=== PATIENT | male | born 1990 | race Caucasian/White ===

== ENCOUNTER 2020-05-29 10:40 | Inpatient (IN) | payer OTHER ==
--- NOTE | 2020-05-29 12:59 | BHS.RME ---
Substance Use & Tx History - Substance Use History Heroin Substance amount: 15 bags of heroin Frequency of use: Daily Substance route: Injection (ex: intravenous or skin popping) Date of Last Use: 05/29/20 Alcohol Substance amount: 1 pint of vodka/8 of 12 0zs ofbeer Frequency of use: Daily Substance route: Oral Date of Last Use: 05/28/20 Cocaine- Powder Substance amount: 50$ Frequency of use: Daily Substance route: Injection (ex: intravenous or skin popping) Date of Last Use: 05/28/20 Xanax Substance amount: 4 to 6 mgs Frequency of use: More than 3 times per week Substance route: Oral Date of Last Use: 05/27/20 - Last Treatment Date of last treatment: 06/[facility] Where was last treatment: Detox Physical/Psych/Mental Status - Behavior General Behavior: Increased activity (restlessness, agitation) Other Behaviors: Mannerisms - Cooperativeness Cooperativeness: Cooperative - Thinking Thought Processes: Logical Thought content: Future oriented - Physical Health Problems Is patient presently having any pain?: No Does patient presently have any injuries (include location): No Does patient currently have a fever: No COWS - Scale Resting Pulse: 0= [place] 80 or Below Sweatin= Chills/Flushing Restless Observation: 3= Extraneous Movement Pupil Size: 1= Pupils >than Normal Bone or Joint Aches: 2= Severe Diffuse Aches Runny Nose/ Eye Tearin= Runny Nose/Eyes GI Upset > 30mins: 2= Nausea/Diarrhea Tremor Observation: 2= Slight Tremor Visible Yawning Observation: 2= >3x During Session Anxiety or Irritability: 2=Irritable/Anxious Goose Flesh Skin: 0=Smooth Skin COWS Score: 17 CIWA Nausea/Vomitin Muscle Tremors: 3 Anxiety: 3 Agitation: 3 Paroxysmal Sweats: 1-Minimal Palms Moist Orientation: 0-Oriented Tacttile Disturbances: 1-Very Mild Itch/Numbness Auditory Disturbances: 0-None Visual Disturbances: 0-None Headache: 2-Mild CIWA-Ar Total Score: 15
--- NOTE | 2020-05-29 13:19 | HP ---
COWS - Scale Resting Pulse: 0= [place] 80 or Below Sweatin= Chills/Flushing Restless Observation: 3= Extraneous Movement Pupil Size: 1= Pupils >than Normal Bone or Joint Aches: 2= Severe Diffuse Aches Runny Nose/ Eye Tearin= Runny Nose/Eyes GI Upset > 30mins: 2= Nausea/Diarrhea Tremor Observation: 2= Slight Tremor Visible Yawning Observation: 2= >3x During Session Anxiety or Irritability: 2=Irritable/Anxious Goose Flesh Skin: 0=Smooth Skin COWS Score: 17 CIWA Score Nausea/Vomitin Muscle Tremors: 3 Anxiety: 3 Agitation: 3 Paroxysmal Sweats: 1-Minimal Palms Moist Orientation: 0-Oriented Tacttile Disturbances: 1-Very Mild Itch/Numbness Auditory Disturbances: 0-None Visual Disturbances: 0-None Headache: 2-Mild CIWA-Ar Total Score: 15 - Admission Criteria [facility] Guidelines: Admission for Medically Managed Detox: Requires at least one of the followin. CIWA greater than 12 2. Seizures within the past 24 hours 3. Delirium tremens within the past 24 hours 4. Hallucinations within the past 24 hours 5. Acute intervention needed for co occurring medical disorder 6. Acute intervention needed for co occurring psychiatric disorder 7. Severe withdrawal that cannot be handled at a lower level of care (continued vomiting, continued diarrhea, abnormal vital signs) requiring intravenous medication and/or fluids 8. Admitting History and Physical - Admission Chief Complaint: i need help to stop using drugs and alcohol History of Present Illness: this 30 years old male iwth heroin,alcohol dependence seeking detox History Source: Patient Limitations to Obtaining History: No Limitations - Smoking History Smoking history: Current every day smoker Have you smoked in the past 12 months: Yes - Alcohol/Substance Use Hx Alcohol Use: Yes History of Substance Use: reports: Cocaine, Heroin, Tranquilizers Date of Last Use: 05/29/20 - Social History Usual Living Arrangement: Yes: Other (friend) Do you think of yourself as: Straight/Heterosexual ADL: Support Services Occupation: unemployed History of Recent Travel: No Other Social History: unemployed,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,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 Admission ROS [facility] - HPI Chief Complaint: i need help to stop using drugs and alcohol Allergies/Adverse Reactions: Allergies Allergy/AdvReac Type Severity Reaction Status Date / Time Fish Containing Products Allergy Severe Swelling Verified 05/29/20 13:31 History of Present Illness: this 30 years old male with heroin,cocaine,xanax dependence and alcohol deprendence seeking detox, first time to this fasility Exam Limitations: No Limitations - Ebola screening Have you traveled outside of the country in the last 21 days: No Have you had contact with anyone from an Ebola affected area: No Have you been sick,other than usual withdrawal symptoms: No Do you have a fever: No - Review of Systems Constitutional: Chills, Loss of Appetite, Malaise, Night Sweats, Changes in sleep, Weakness, Unintentional Wgt. Loss EENT: reports: Nose Congestion Respiratory: reports: No Symptoms reported Cardiac: reports: No Symptoms Reported GI: reports: Nausea, Vomiting, Abdominal cramping : reports: No Symptoms Reported Musculoskeletal: reports: Back Pain, Muscle Pain Integumentary: reports: Dryness Neuro: reports: Tremors Endocrine: reports: No Symptoms Reported Hematology: reports: No Symptoms Reported Psychiatric: reports: No Sypmtoms Reported, Mood/Affect Appropiate, Orientated x3, Anxious, Depressed, other (insomnia) Other Systems: Reviewed and Negative Patient History - Patient Medical History Hx Anemia: No Hx Asthma: No Hx Chronic Obstructive Pulmonary Disease (COPD): No Hx Cancer: No Hx Cardiac Disorders: No Hx Congestive Heart Failure: No Hx Hypertension: No Hx Hypercholesterolemia: No Hx Pacemaker: No HX Cerebrovascular Accident: No Hx Seizures: No Hx Dementia: No Hx Diabetes: No Hx Gastrointestinal Disorders: No Hx Liver Disease: No Hx Genitourinary Disorders: No Hx Sexually Transmitted Disorders: No Hx Renal Disease (ESRD): No Hx Thyroid Disease: No Hx Human Immunodeficiency Virus (HIV): No (last 10/30 negative) Hx Hepatitis C: No Hx Depression: Yes (anxiety) Hx Suicide Attempt: No Hx Bipolar Disorder: No Hx Schizophrenia: No Other Medical History: no suicidal,no homicidal - Patient Surgical History Past Surgical History: No - PPD History Previous Implant?: Yes Documented Results: Negative w/o proof Implanted On Prior [facility] Admission?: No PPD to be Administered?: Yes - Smoking Cessation Smoking history: Current every day smoker Have you smoked in the past 12 months: Yes Aproximately how many cigarettes per day: 5 Hx Chewing Tobacco Use: No Initiated information on smoking cessation: No 'Breaking Loose' booklet given: 05/29/20 - Substance & Tx. History Hx Alcohol Use: Yes Hx Substance Use: Yes Substance Use Type: Cocaine, Heroin, Prescribed Hx Substance Use Treatment: Yes ([facility]) - Substances abused Heroin Substance route: Injection Frequency: Daily Amount used: 15 bags Age of first use: 17 Date of last use: 05/29/20 Alcohol Substance route: Oral Frequency: Daily Amount used: 1 pint of vodka/8 of 12 ozs of beer Age of first use: 12 Date of last use: 05/28/20 Cocaine Substance route: Injection Frequency: Daily Amount used: 50$ Age of first use: 16 Date of last use: 05/28/20 Alprazolam (Xanax) Frequency: 3-6 times per week Amount used: 4 to 6 mgs Age of first use: 16 Date of last use: 05/28/20 Admission Physical Exam [facility] - Vital Signs Vital Signs: t98,p60,bp 113/67,r18 - Physical General Appearance: Yes: Moderate Distress, Tremorous, Irritable, Sweating, Anxious HEENTM: Yes: Normal ENT Inspection, MEGAN, Pharynx Normal Respiratory: Yes: Within Normal Limits, Lungs Clear, Normal Breath Sounds Neck: Yes: Within Normal Limits, Supple, Trachea in good position Breast: Yes: Within Normal Limits Cardiology: Yes: Within Normal Limits, Regular Rhythm, Regular Rate, S1, S2 Abdominal: Yes: Normal Bowel Sounds, Non Tender, Flat, Soft Genitourinary: Yes: Within Normal Limits Back: Yes: Muscle Spasm Musculoskeletal: Yes: Back pain, Muscle Pain Extremities: Yes: Tremors Neurological: Yes: electrical troubleshooter II-XII NML intact, Fully Oriented, Alert, Motor Strength 5/5 Integumentary: Yes: Dry, Track Mcmullen Lymphatic: Yes: Within Normal Limits - Diagnostic (1) Opioid dependence with withdrawal Current Visit: Yes Status: Acute (2) Alcohol dependence with uncomplicated withdrawal Current Visit: Yes Status: Acute (3) Uncomplicated sedative, hypnotic or anxiolytic withdrawal Current Visit: Yes Status: Acute (4) Cocaine dependence Current Visit: Yes Status: Chronic (5) IVDU (intravenous drug user) Current Visit: Yes Status: Acute (6) Insomnia secondary to depression with anxiety Current Visit: Yes Status: Acute (7) Nicotine dependence Current Visit: Yes Status: Chronic (8) Weight loss Current Visit: Yes Status: Acute Cleared for Admission [facility] - Detox or Rehab [facility] Level of Care: Medically Managed Detox Regimen/Protocol: Methadone/Valium Inpatient Rehab Admission - Rehab Decision to Admit Inpatient rehab admission?: No
[2020-05-29] MEDS ORDERED: cloNIDine HCL 0.1 MG TABLET PO PRN (13:33)
[2020-05-29] MEDS ORDERED: MAGNESIUM HYDROX 2400MG/30ML ORAL SUSPENSION 30 ML CUP PO PRN (13:33)
[2020-05-29] MEDS ORDERED: MENTHOL/PHENOL 1 EACH UD MM PRN (13:33)
[2020-05-29] MEDS ORDERED: MAG HYDROX/AL HYDROX/SIMETH 30 ML UNIT-DOSE CUP PO PRN (13:33)
[2020-05-29] MEDS ORDERED: MAGNESIUM CITRATE 300 ML BOTTLE PO PRN (13:33)
[2020-05-29] MEDS ORDERED: METHOCARBAMOL 500 MG TABLET PO PRN (13:33)
[2020-05-29] MEDS ORDERED: ACETAMINOPHEN 325 MG TABLET (FP) PO PRN ×2 (13:33)
[2020-05-29] MEDS ORDERED: METHADONE HCL 10 MG TABLET (FOR DETOX USE ONLY) PO ONE (13:33)
[2020-05-29] MEDS ORDERED: ONDANSETRON *ODT* 4 MG TABLET SL ONE (13:33)
[2020-05-29] MEDS ORDERED: BISMUTH SUBSALICYLATE 524 MG/30 ML UD PO PRN (13:33)
[2020-05-29] MEDS ORDERED: IBUPROFEN 400 MG TABLET (FP) PO PRN (13:33)
[2020-05-29] MEDS ORDERED: NICOTINE POLACRILEX 2 MG GUM BUC PRN (13:33)
[2020-05-29 13:45] VITALS: BMI 19.9
[2020-05-29] MEDS: hydrOXYzine PAMOATE 25 MG CAPSULE (FP) PO SCH ×3 (15:10→21:38)
[2020-05-29] MEDS: diazePAM 5 MG TABLET PO PRN ×2 (15:19→19:52)
--- NOTE | 2020-05-29 17:25 | CONSULT ---
[facility] Psychiatric Consult - Data Date of interview: 05/29/20 Admission source: [facility] Identifying data: First visit to [facility] and admission to [address] [place] [address] (converted into a detoxification unit) for this 30 y/o male self-referred for detoxification treatment. JOSHUA issues : alcohol, cocaine, heroin, benzodiazepine (xanax), nicotine. 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 Patient is a good historian. Substance Abuse History: Discused with the patient. JOSHUA profile as follows : Smoking history: Current every day smoker. Have you smoked in the past 12 months: Yes. Aproximately how many cigarettes per day: 5. Hx Chewing Tobacco Use: No. Initiated information on smoking cessation: No. 'Breaking Loose' booklet given: 05/29/20. - Substance & Tx. History. Hx Alcohol Use: Yes. Hx Substance Use: Yes. Substance Use Type: Cocaine, Heroin, Prescribed. Hx Substance Use Treatment: Yes (06/[facility]). - Substances abused. Heroin. Substance route: Injection. Frequency: Daily. Amount used: 15 bags. Age of first use: 17. Date of last use: 05/29/20. Alcohol. Substance route: Oral. Frequency: Daily. Amount used: 1 pint of vodka/8 of 12 ozs of beer. Age of first use: 12. Date of last use: 05/28/20. History of multiple JOSHUA treatment failures. Cocaine. Substance route: Injection. Frequency: Daily. Amount used: 50$. Age of first use: 16. Date of last use: 05/28/20. Alprazolam (Xanax). Frequency: 3-6 times per week. Amount used: 4 to 6 mgs. Age of first use: 16. Date of last use: 05/28/20 Medical History: Medical history is remarkable for a recent of pneumonia (warranted two months of hospitalization). Psychiatric History: Patient endorses a long standing history of psychiatric illness. Onset at age 13 (runaway behavior, involvement with drugs, behavioral disurbances). Mr Huerta indicates a background of multiple psychiatric hospitalizations ([facility] + [facility] + [facility] + unnamed institution located in [facility]). Diagnosed with MDD, OCD and Anxiety Disorder. For past four years, until recently (2018), the patient has received his OPD psychiatric services at [facility] in [facility]. He has been treated with various molecules which include gabapentin, venlafaxine, mirtazapine, aripriprazole and other unnamed formulations. Patient reports that since the sabianism of the COVID-19 pandemic, he has not been able to connect with a psychiatric care provider (consequently, he could not get his medications). He aknowledges history of two suicide attempts (overdoses with drugs : first one at age 20 + second attempt occurred in June 2019). Physical/Sexual Abuse/Trauma History: Patient denies history of abuse. Additional Comment: No toxicology for review. Mental Status Exam - Mental Status Exam Alert and Oriented to: Time, Place, Person Cognitive Function: Good Patient Appearance: Well Groomed (tattoos : neck, upper extremities; ring inserted in both earlobes ) Mood: Anxious, Hopeful Affect: Appropriate, Normal Range Patient Behavior: Fatigued, Appropriate, Cooperative Speech Pattern: Clear, Appropriate Voice Loudness: Normal Thought Process: Intact, Goal Oriented Thought Disorder: Not Present Hallucinations: Denies Suicidal Ideation: Denies Homicidal Ideation: Denies Insight/Judgement: Poor Sleep: Poorly, Difficulty falling asleep Appetite: Good Gait/Station: Normal Psychiatric Findings - Problem List ([place] 1, 2,3) (1) Alcohol dependence with uncomplicated withdrawal Current Visit: Yes Status: Acute (2) Uncomplicated sedative, hypnotic or anxiolytic withdrawal Current Visit: Yes Status: Acute (3) Opioid dependence with withdrawal Current Visit: Yes Status: Acute (4) Cocaine dependence Current Visit: Yes Status: Chronic (5) Nicotine dependence Current Visit: Yes Status: Chronic (6) Substance induced mood disorder Current Visit: Yes Status: Chronic (7) History of depression Current Visit: Yes Status: Chronic Comment: As per self-report. Patient requests to get back on venalafaxine. (8) Insomnia Current Visit: Yes Status: Chronic (9) Non-compliance Current Visit: Yes Status: Chronic - Initial Treatment Plan Initial Treatment Plan: Psychoeducation. Sleep hygiene. Support. Motivational counseling. Detoxification in progress. Product Manager Medical Device made unsuccessful attempt to verify patient's medications at [facility] (called [phone]) : answering machine (pharmacy closed). No justification, at this time, for restarting venlafaxine. Remeron is restarted at the dose of 15 mg po hs. Gabapentin held for now (caution for risk of oversedation due to polypharmacy). Side effects/benefits of these three medications are revisited with the patient. Mr Huerta is in agreement with this initial plan of care. Consent (verbal) granted. Observation.
[2020-05-29] MEDS: MIRTAZAPINE 15 MG TABLET (FP) PO SCH (21:38)
[2020-05-29] MEDS: MELATONIN 5 MG TABLETS PO SCH (21:38)
[2020-05-29] MEDS: THIAMINE HCL 100 MG TABLET (FP) PO SCH (21:38)
[2020-05-29] MEDS: diazePAM 5 MG TABLET PO SCH (21:38)
[2020-05-30] MEDS: diazePAM 5 MG TABLET PO SCH ×3 (06:30→21:36)
[2020-05-30] MEDS: hydrOXYzine PAMOATE 25 MG CAPSULE (FP) PO SCH ×4 (06:30→22:06)
[2020-05-30] MEDS ORDERED: METHADONE HCL 10 MG TABLET (FOR DETOX USE ONLY) ONE (08:56)
[2020-05-30] MEDS ORDERED: METHADONE HCL 5 MG TABLET (FOR DETOX USE ONLY) ONE (08:56)
[2020-05-30] MEDS ORDERED: METHADONE (DETOX) 20 MG, METHADONE (DETOX) 5 MG PO ONE (10:00)
[2020-05-30] MEDS: PRENATAL VITAMINS W/ FOLIC ACID TABLET (FP) PO SCH (10:27)
[2020-05-30] MEDS: NICOTINE 7 MG/24 HOURS TOPICAL PATCH TD SCH (10:28)
[2020-05-30] MEDS: diazePAM 5 MG TABLET PO PRN ×2 (10:30→17:28)
[2020-05-30 12:04] LABS: HEMATOCRIT 30.6 % (35.4-49); HEMOGLOBIN 10.2 GM/dL (11.7-16.9); MCH 28.7 pg (25.7-33.7); MCHC 33.5 g/dl (32.0-35.9); MEAN CELL VOLUME 85.6 fl (80-96); MEAN PLT VOLUME 7.9 fl (7.5-11.1); PLATELET COUNT 138 K/MM3 (134-434); RBC 3.57 M/mm3 (4.00-5.60); RDW 14.6 % (11.9-15.9); WHITE BLOOD COUNT 3.9 K/mm3 (4.0-10.0)
[2020-05-30 12:18] LABS: ALBUMIN 2.8 g/dl (3.4-5.0); BILIRUBIN,TOTAL 0.4 mg/dL (0.2-1); BLOOD UREA NITROGEN 11.4 mg/dL (7-18); CALCIUM 8.7 mg/dL (8.5-10.1); POTASSIUM 3.4 mmol/L (3.5-5.1); TOT PROT 6.3 g/dl (6.4-8.2)
--- NOTE | 2020-05-30 13:37 | PN ---
S CIWA - CIWA Score Nausea/Vomitin Muscle Tremors: 3 Anxiety: 3 Agitation: 2 Paroxysmal Sweats: 1-Minimal Palms Moist Orientation: 0-Oriented Tacttile Disturbances: 0-None Auditory Disturbances: 0-None Visual Disturbances: 0-None Headache: 1-Very Mild CIWA-Ar Total Score: 12 S COWS - Scale Resting Pulse: 0= [place] 80 or Below Sweatin= Chills/Flushing Restless Observation: 0= Sits Still Pupil Size: 1= Pupils >than Normal Bone or Joint Aches: 1= Mild Discomfort Runny Nose/ Eye Tearin= None GI Upset > 30mins: 2= Nausea/Diarrhea Tremor Observation of Outstretched Hands: 2= Slight Tremor Visible Yawning Observation: 0= None Anxiety or Irritability: 2=Irritable/Anxious Goose Flesh Skin: 3=Piloerection COWS Score: 12 S Progress Note (SOAP) Subjective: 30 YEARS OLD MALE ADMITTED ON 05/29/20 FOR ALCOHOL BENZO OPIATE WITHDRAWAL SX MANAGEMENT TREATING WITH VALIUM AND METHADONE DETOX REGIMENT REPORT ABDOMINAL CRAMPING BENTYLE 20 MG PO X 1 DIARRHEA X 1 AFTER BREAKFAST IMODIUM 4 MG PO X 1 Objective: 05/30/20 13:42 Vital Signs - 24 hr 05/29/20 05/29/20 05/29/20 14:40 17:10 20:30 Temperature 98.4 F 97.9 F 98.1 F Pulse Rate 51 L 59 L 55 L Respiratory 18 18 18 Rate Blood Pressure 116/69 125/76 127/76 O2 Sat by Pulse 98 98 98 Oximetry (%) 05/30/20 05/30/20 05/30/20 06:04 08:39 12:34 Temperature 97.7 F 97.7 F 98.0 F Pulse Rate 59 L 57 L 65 Respiratory 18 18 17 Rate Blood Pressure 119/71 122/69 120/73 O2 Sat by Pulse 98 98 Oximetry (%) Laboratory Tests 05/30/20 05/30/20 05/30/20 07:25 07:25 07:25 WBC 3.9 L RBC 3.57 L Hgb 10.2 L Hct 30.6 L MCV 85.6 MCH 28.7 MCHC 33.5 RDW 14.6 Plt Count 138 MPV 7.9 Sodium 142 Potassium 3.4 L Chloride 107 Carbon Dioxide 29 Anion Gap 6 L BUN 11.4 Creatinine 1.0 Est GFR (CKD-EPI)AfAm 116.54 Est GFR (CKD-EPI)NonAf 100.55 Random Glucose 89 Calcium 8.7 Total Bilirubin 0.4 AST 10 L ALT 11 L Alkaline Phosphatase 63 Total Protein 6.3 L Albumin 2.8 L Syphilis Serology Non-reactive LAB NOTED POTASSIUM SUPPLEMENT 20MEQ X 2 PO 05/30/20 13:44 Assessment: 05/30/20 13:44 ALCOHOL BENZO OPIATE WITHDRAWAL 05/30/20 13:46 DIARRHEA ABDOMINAL CRAMP Plan: VALIUM AND METHADONE REGIMENTS IMODIUM 4 MG PO X 1 BENTYLE 20 MG PO X 1
[2020-05-30] MEDS ORDERED: LOPERAMIDE HCL 2 MG CAPSULE PO ONE (13:38)
[2020-05-30] MEDS ORDERED: DICYCLOMINE HCL 10 MG CAPSULE PO ONE (14:30)
[2020-05-30] MEDS: POTASSIUM CHLORIDE ORAL LIQUID 20 MEQ/15 ML PO SCH ×2 (15:22→17:30)
[2020-05-30] MEDS: THIAMINE HCL 100 MG TABLET (FP) PO SCH (21:36)
[2020-05-30] MEDS: MELATONIN 5 MG TABLETS PO SCH (21:36)
[2020-05-30] MEDS: MIRTAZAPINE 15 MG TABLET (FP) PO SCH (21:37)
[2020-05-31] MEDS: hydrOXYzine PAMOATE 25 MG CAPSULE (FP) PO SCH ×4 (06:32→22:14)
[2020-05-31] MEDS: diazePAM 5 MG TABLET PO SCH ×2 (06:32→18:06)
[2020-05-31] MEDS ORDERED: METHADONE HCL 10 MG TABLET (FOR DETOX USE ONLY) PO ONE (10:00)
[2020-05-31] MEDS: NICOTINE 7 MG/24 HOURS TOPICAL PATCH TD SCH (10:50)
[2020-05-31] MEDS: PRENATAL VITAMINS W/ FOLIC ACID TABLET (FP) PO SCH (10:50)
[2020-05-31] MEDS: diazePAM 5 MG TABLET PO PRN ×2 (10:52→22:14)
--- NOTE | 2020-05-31 12:29 | EKG ---
Test Reason : Blood Pressure : / mmHG Vent. Rate : 055 BPM Atrial Rate : 055 BPM P-R Int : 202 ms QRS Dur : 104 ms QT Int : 436 ms P-R-T Axes : 059 055 025 degrees QTc Int : 417 ms SINUS BRADYCARDIA OTHERWISE NORMAL ECG NO PREVIOUS ECGS AVAILABLE Confirmed by Lala Huitron ([id number]) on 05/31/2020 12:28:34 PM Referred By: Confirmed By:Lala Huitron
--- NOTE | 2020-05-31 14:34 | PN ---
[facility] CIWA - CIWA Score Nausea/Vomitin-No Nausea/No Vomiting Muscle Tremors: 3 Anxiety: 4-Mod. Anxious/Guarded Agitation: 3 Paroxysmal Sweats: 2 Orientation: 0-Oriented Tacttile Disturbances: 0-None Auditory Disturbances: 0-None Visual Disturbances: 0-None Headache: 0-None Present CIWA-Ar Total Score: 12 BHS COWS - Scale Resting Pulse: 0= [place] 80 or Below Sweatin= Chills/Flushing Restless Observation: 3= Extraneous Movement Pupil Size: 0= Normal to Room Light Bone or Joint Aches: 2= Severe Diffuse Aches Runny Nose/ Eye Tearin= None GI Upset > 30mins: 1= Stomach Cramp Tremor Observation of Outstretched Hands: 1= Tremor [place], Not Seen Yawning Observation: 0= None Anxiety or Irritability: 2=Irritable/Anxious Goose Flesh Skin: 0=Smooth Skin COWS Score: 10 BHS Progress Note (SOAP) Subjective: Pt is a 30 y/o male admitted to detox for heroin, alcohol and sedative withdrawal sx. c/o sweats hot/cold sweats stomach cramps anxiety Objective: 05/31/20 15:16 Vital Signs - 24 hr 05/30/20 05/30/20 05/31/20 16:32 20:26 06:06 Temperature 97.8 F 97.3 F L 97.8 F Pulse Rate 76 66 60 Respiratory 18 17 18 Rate Blood Pressure 117/55 L 116/66 111/70 O2 Sat by Pulse 98 99 Oximetry (%) 05/31/20 05/31/20 09:41 13:09 Temperature 97.6 F 98.2 F Pulse Rate 50 L 62 Respiratory 16 18 Rate Blood Pressure 136/73 131/71 O2 Sat by Pulse 97 98 Oximetry (%) Laboratory Tests 05/29/20 05/30/20 05/30/20 14:12 07:25 07:25 WBC RBC Hgb Hct MCV MCH MCHC RDW Plt Count MPV Sodium Potassium Chloride Carbon Dioxide Anion Gap BUN Creatinine Est GFR (CKD-EPI)AfAm Est GFR (CKD-EPI)NonAf Random Glucose Calcium Total Bilirubin AST ALT Alkaline Phosphatase Total Protein Albumin Syphilis Serology Non-reactive COVID-19 ([facility]) Not detected HIV Ag/Ab Combo Qual Negative 05/30/20 05/30/20 07:25 07:25 WBC 3.9 L RBC 3.57 L Hgb 10.2 L Hct 30.6 L MCV 85.6 MCH 28.7 MCHC 33.5 RDW 14.6 Plt Count 138 MPV 7.9 Sodium 142 Potassium 3.4 L Chloride 107 Carbon Dioxide 29 Anion Gap 6 L BUN 11.4 Creatinine 1.0 Est GFR (CKD-EPI)AfAm 116.54 Est GFR (CKD-EPI)NonAf 100.55 Random Glucose 89 Calcium 8.7 Total Bilirubin 0.4 AST 10 L ALT 11 L Alkaline Phosphatase 63 Total Protein 6.3 L Albumin 2.8 L Syphilis Serology COVID-19 ([facility]) HIV Ag/Ab Combo Qual covid-19 not detected labs noted K+ 3.4 Hgb 10.2 Alert o x 3 nad oob ambulating with steady gait Assessment: 05/31/20 15:17 withdrawal sx Anemia borderline hypokalemia Plan: cont detox increase po fluids maintain safety feosol 325 mg po BID kdur 20 mg po daily, 1st dose now repeat CMP/CBC on Sun06/02/20
[2020-05-31] MEDS: POTASSIUM CHLORIDE TABS 20 MEQ TABLET.ER (FP) PO SCH (15:38)
[2020-05-31] MEDS: FERROUS SO4 325 MG TABLET (FP) PO SCH (18:05)
[2020-05-31] MEDS: MELATONIN 5 MG TABLETS PO SCH (22:14)
[2020-05-31] MEDS: MIRTAZAPINE 15 MG TABLET (FP) PO SCH (22:14)
[2020-05-31] MEDS: THIAMINE HCL 100 MG TABLET (FP) PO SCH (22:15)
[2020-06-01] MEDS ORDERED: diazePAM 5 MG TABLET PO ONE (06:00)
[2020-06-01] MEDS: hydrOXYzine PAMOATE 25 MG CAPSULE (FP) PO SCH ×2 (06:12→10:08)
[2020-06-01] MEDS ORDERED: METHADONE HCL 10 MG TABLET (FOR DETOX USE ONLY) ONE (08:44)
[2020-06-01] MEDS ORDERED: METHADONE HCL 5 MG TABLET (FOR DETOX USE ONLY) ONE (08:44)
--- NOTE | 2020-06-01 09:31 | PN ---
[facility] CIWA - CIWA Score Nausea/Vomitin-No Nausea/No Vomiting Muscle Tremors: 2 Anxiety: 4-Mod. Anxious/Guarded Agitation: 0-Normal Activity Paroxysmal Sweats: 2 Orientation: 0-Oriented Tacttile Disturbances: 0-None Auditory Disturbances: 0-None Visual Disturbances: 0-None Headache: 0-None Present CIWA-Ar Total Score: 8 BHS COWS - Scale Resting Pulse: 0= [place] 80 or Below Sweatin= Chills/Flushing Restless Observation: 0= Sits Still Pupil Size: 0= Normal to Room Light Bone or Joint Aches: 2= Severe Diffuse Aches Runny Nose/ Eye Tearin= None GI Upset > 30mins: 1= Stomach Cramp Tremor Observation of Outstretched Hands: 1= Tremor [place], Not Seen Yawning Observation: 0= None Anxiety or Irritability: 2=Irritable/Anxious Goose Flesh Skin: 0=Smooth Skin COWS Score: 7 S Progress Note (SOAP) Subjective: c/o hot/cold chills sweats stomach cramps ` Objective: 06/01/20 09:32 Vital Signs - 24 hr 05/31/20 05/31/20 05/31/20 09:41 13:09 21:29 Temperature 97.6 F 98.2 F 98.4 F Pulse Rate 50 L 62 56 L Respiratory 16 18 16 Rate Blood Pressure 136/73 131/71 122/74 O2 Sat by Pulse 97 98 96 Oximetry (%) 06/01/20 06:07 Temperature 97.3 F L Pulse Rate 58 L Respiratory 18 Rate Blood Pressure 104/58 L O2 Sat by Pulse 98 Oximetry (%) Laboratory Results - last 24 hr 05/29/20 14:12 COVID-19 ([facility]) Not detected Laboratory Tests 05/29/20 05/30/20 05/30/20 14:12 07:25 07:25 WBC RBC Hgb Hct MCV MCH MCHC RDW Plt Count MPV Sodium Potassium Chloride Carbon Dioxide Anion Gap BUN Creatinine Est GFR (CKD-EPI)AfAm Est GFR (CKD-EPI)NonAf Random Glucose Calcium Total Bilirubin AST ALT Alkaline Phosphatase Total Protein Albumin Syphilis Serology Non-reactive COVID-19 ([facility]) Not detected HIV Ag/Ab Combo Qual Negative 05/30/20 05/30/20 07:25 07:25 WBC 3.9 L RBC 3.57 L Hgb 10.2 L Hct 30.6 L MCV 85.6 MCH 28.7 MCHC 33.5 RDW 14.6 Plt Count 138 MPV 7.9 Sodium 142 Potassium 3.4 L Chloride 107 Carbon Dioxide 29 Anion Gap 6 L BUN 11.4 Creatinine 1.0 Est GFR (CKD-EPI)AfAm 116.54 Est GFR (CKD-EPI)NonAf 100.55 Random Glucose 89 Calcium 8.7 Total Bilirubin 0.4 AST 10 L ALT 11 L Alkaline Phosphatase 63 Total Protein 6.3 L Albumin 2.8 L Syphilis Serology COVID-19 ([facility]) HIV Ag/Ab Combo Qual Assessment: 06/01/20 11:52 withdrawal sx Plan: cont detox increase po fluids maintain safety Robaxin prn for muscle spasm
[2020-06-01] MEDS ORDERED: METHADONE (DETOX) 10 MG, METHADONE (DETOX) 5 MG PO ONE (10:00)
[2020-06-01] MEDS: POTASSIUM CHLORIDE TABS 20 MEQ TABLET.ER (FP) PO SCH (10:08)
[2020-06-01] MEDS: NICOTINE 7 MG/24 HOURS TOPICAL PATCH TD SCH (10:08)
[2020-06-01] MEDS: FERROUS SO4 325 MG TABLET (FP) PO SCH (10:08)
[2020-06-01] MEDS: PRENATAL VITAMINS W/ FOLIC ACID TABLET (FP) PO SCH (10:08)
[2020-06-01] MEDS: diazePAM 5 MG TABLET PO PRN (10:10)
--- NOTE | 2020-06-01 14:33 | PN ---
[facility] CIWA - CIWA Score Nausea/Vomitin-No Nausea/No Vomiting Muscle Tremors: 1-None Visible, but [place] Anxiety: 1-Mildly Anxious Agitation: 0-Normal Activity Paroxysmal Sweats: No Perspiration Orientation: 0-Oriented Tacttile Disturbances: 0-None Auditory Disturbances: 0-None Visual Disturbances: 0-None Headache: 1-Very Mild CIWA-Ar Total Score: 3 S COWS - Scale Resting Pulse: 0= [place] 80 or Below Sweatin= No chills or Flushing Restless Observation: 0= Sits Still Pupil Size: 0= Normal to Room Light Bone or Joint Aches: 0= None Runny Nose/ Eye Tearin= None GI Upset > 30mins: 0= None Tremor Observation of Outstretched Hands: 1= Tremor [place], Not Seen Yawning Observation: 0= None Anxiety or Irritability: 1=Feels Anxious/Irritable Goose Flesh Skin: 0=Smooth Skin COWS Score: 2 S Progress Note (SOAP) Subjective: alert,no complaint Objective: 06/01/20 14:35 Vital Signs Temperature 98.4 F 06/01/20 09:30 Pulse Rate 62 06/01/20 09:30 Respiratory Rate 18 06/01/20 09:30 Blood Pressure 120/69 06/01/20 09:30 O2 Sat by Pulse Oximetry (%) 98 06/01/20 09:30 Assessment: 06/01/20 14:36 patient feel better,no withdrawal symptom Plan: stable for discharge today,follow up with outpatient program as arrangement [facility], Dr Villegas inform about patient is being discharged,he will send remeron 15 mgs po hs to patient's pharmacy, ferrous sulfate 325 mgs po bid for 15 days,k dur 20 meq po daily for 5 days,encourage fliud,diet rich with banana,follow up with medical provider for follow up
--- NOTE | 2020-06-01 14:44 | DS ---
[facility] Detox Discharge Summary Admission Date: 05/29/20 Discharge Date: 06/01/20 - History Present History: Alcohol Dependence, Cocaine Dependence, Opioid Dependence, Sedative Dependence Additional Comments: alert,oriented x 3 ambulation on the unit lung clear by auscultation bilaterally abdomen soft,no distension,no pain no tenderness extremity no pain, no withdrawal symptom patient is stable for discharge no withdrawal symptom patient will follow up with [facility] out patient program for follow up and medical provider Pertinent Past History: ivdu nicotine dependence depression - Physical Exam Results Vital Signs: Vital Signs Temperature 98.4 F 06/01/20 09:30 Pulse Rate 62 06/01/20 09:30 Respiratory Rate 18 06/01/20 09:30 Blood Pressure 120/69 06/01/20 09:30 O2 Sat by Pulse Oximetry (%) 98 06/01/20 09:30 Pertinent Admission Physical Exam Findings: withdrawal signs and symptom Laboratory Last Values WBC 3.9 K/mm3 (4.0-10.0) L 05/30/20 07:25 RBC 3.57 M/mm3 (4.00-5.60) L 05/30/20 07:25 Hgb 10.2 GM/dL (11.7-16.9) L 05/30/20 07:25 Hct 30.6 % (35.4-49) L 05/30/20 07:25 MCV 85.6 fl (80-96) 05/30/20 07:25 MCH 28.7 pg (25.7-33.7) 05/30/20 07:25 MCHC 33.5 g/dl (32.0-35.9) 05/30/20 07:25 RDW 14.6 % (11.9-15.9) 05/30/20 07:25 Plt Count 138 K/MM3 (134-434) 05/30/20 07:25 MPV 7.9 fl (7.5-11.1) 05/30/20 07:25 Sodium 142 mmol/L (136-145) 05/30/20 07:25 Potassium 3.4 mmol/L (3.5-5.1) L 05/30/20 07:25 Chloride 107 mmol/L (98-107) 05/30/20 07:25 Carbon Dioxide 29 mmol/L (21-32) 05/30/20 07:25 Anion Gap 6 MMOL/L (8-16) L 05/30/20 07:25 BUN 11.4 mg/dL (7-18) 05/30/20 07:25 Creatinine 1.0 mg/dL (0.55-1.3) 05/30/20 07:25 Est GFR (CKD-EPI)AfAm 116.54 05/30/20 07:25 Est GFR (CKD-EPI)NonAf 100.55 05/30/20 07:25 Random Glucose 89 mg/dL (74-106) 05/30/20 07:25 Calcium 8.7 mg/dL (8.5-10.1) 05/30/20 07:25 Total Bilirubin 0.4 mg/dL (0.2-1) 05/30/20 07:25 AST 10 U/L (15-37) L 05/30/20 07:25 ALT 11 U/L (13-61) L 05/30/20 07:25 Alkaline Phosphatase 63 U/L (45-117) 05/30/20 07:25 Total Protein 6.3 g/dl (6.4-8.2) L 05/30/20 07:25 Albumin 2.8 g/dl (3.4-5.0) L 05/30/20 07:25 Syphilis Serology Non-reactive (NONREACTIVE) 05/30/20 07:25 COVID-19 (LUCINA) Not detected (Not Detected) 05/29/20 14:12 HIV Ag/Ab Combo Qual Negative (NEGATIVE) 05/30/20 07:25 Vital Signs Temperature 98.2 F 06/01/20 14:02 Pulse Rate 64 06/01/20 14:02 Respiratory Rate 16 06/01/20 14:02 Blood Pressure 125/62 06/01/20 14:02 O2 Sat by Pulse Oximetry (%) 98 06/01/20 14:02 - Treatment Hospital Course: Detox Protocol Followed, Detoxed Safely, Responded well, Discharged Condition Good Patient has Accepted a Rehab Referral to: declined - Medication Discharge Medications: Ambulatory Orders Gabapentin 600 mg PO TID 05/29/20 - Diagnosis (1) Opioid dependence with withdrawal Current Visit: Yes Status: Acute (2) Alcohol dependence with uncomplicated withdrawal Current Visit: Yes Status: Acute (3) Uncomplicated sedative, hypnotic or anxiolytic withdrawal Current Visit: Yes Status: Acute (4) Cocaine dependence Current Visit: Yes Status: Chronic (5) IVDU (intravenous drug user) Current Visit: Yes Status: Acute (6) Insomnia secondary to depression with anxiety Current Visit: Yes Status: Acute (7) Nicotine dependence Current Visit: Yes Status: Chronic (8) Weight loss Current Visit: Yes Status: Acute (9) Hypokalemia Current Visit: Yes Status: Acute (10) Anemia Current Visit: Yes Status: Acute - AMA Did Patient Leave Against Medical Advice: No
[2020-06-01 14:55] VITALS: BP 125/62; PULSE 64; TEMP 98.2
--- NOTE | 2020-06-01 19:49 | PN ---
S Progress Note Note: Psychiatry Attending's note : Script for remeron 15 mg po hs. Sent electronically to [facility]. 30 day supply.
[2020-06-02] MEDS ORDERED: METHADONE HCL 10 MG TABLET (FOR DETOX USE ONLY) PO ONE (10:00)
[2020-06-03] MEDS ORDERED: METHADONE HCL 5 MG TABLET (FOR DETOX USE ONLY) PO ONE (06:00)
== END 2020-06-01 14:42 | disposition home or self-care (01) | DRG 773 ==
LOC: YASAS 10:40 → Y5N DETOX 14:02
PROVIDERS: ADMIT Allergy & Immunology; ATTEND Allergy & Immunology
PROC: HZ2ZZZZ Detoxification Services for Substance Abuse Treatment (ICD-10-PCS; principal; 2020-05-29)
DX: F10.230 Alcohol dependence with withdrawal, uncomplicated (principal); F11.23 Opioid dependence with withdrawal; F13.230 Sedative, hypnotic or anxiolytic dependence with withdrawal, uncomplicated; F14.20 Cocaine dependence, uncomplicated; F17.210 Nicotine dependence, cigarettes, uncomplicated; F19.24 Other psychoactive substance dependence with psychoactive substance-induced mood disorder; F32.9 Major depressive disorder, single episode, unspecified; F51.05 Insomnia due to other mental disorder; E87.6 Hypokalemia; D64.9 Anemia, unspecified; R63.4 Abnormal weight loss; Z68.1 Body mass index [BMI] 19.9 or less, adult; Z87.01 Personal history of pneumonia (recurrent); Z91.018 Allergy to other foods
CPT/HCPCS: 36415; 80053; 85027; 86780; 87389; 93005; 93010; Q0162; U0003

== ENCOUNTER 2020-07-08 18:52 | Inpatient (IN) | payer OTHER ==
[2020-07-08 20:18] VITALS: BMI 22.3
--- NOTE | 2020-07-08 20:34 | HP ---
COWS - Scale Resting Pulse: 0= [place] 80 or Below Sweatin=Flushed/Facial Moisture Restless Observation: 0= Sits Still Pupil Size: 0= Normal to Room Light Bone or Joint Aches: 4=Acute Joint/Muscle Pain Runny Nose/ Eye Tearin= Nasal Congestion GI Upset > 30mins: 2= Nausea/Diarrhea (diarrhea x 2) Tremor Observation: 2= Slight Tremor Visible Yawning Observation: 1= 1-2x During Session Anxiety or Irritability: 4=Extreme Anxiety Goose Flesh Skin: 3=Piloerection COWS Score: 19 CIWA Score Nausea/Vomitin-Mild Nausea/No Vomiting Muscle Tremors: 4-Moderate,w/Arms Extend Anxiety: 4-Mod. Anxious/Guarded Agitation: 2 Paroxysmal Sweats: 2 Orientation: 1-Uncertain about Date Tacttile Disturbances: 0-None Auditory Disturbances: 0-None Visual Disturbances: 0-None Headache: 3-Moderate CIWA-Ar Total Score: 17 - Admission Criteria OASAS Guidelines: Admission for Medically Managed Detox: Requires at least one of the followin. CIWA greater than 12 2. Seizures within the past 24 hours 3. Delirium tremens within the past 24 hours 4. Hallucinations within the past 24 hours 5. Acute intervention needed for co occurring medical disorder 6. Acute intervention needed for co occurring psychiatric disorder 7. Severe withdrawal that cannot be handled at a lower level of care (continued vomiting, continued diarrhea, abnormal vital signs) requiring intravenous medication and/or fluids 8. Admitting History and Physical - Smoking History Smoking history: Smoker current status UNK Have you smoked in the past 12 months: No Aproximately how many cigarettes per day: 5 - Alcohol/Substance Use Hx Alcohol Use: Yes History of Substance Use: reports: Cocaine, Heroin, Tranquilizers Date of Last Use: 05/29/20 - Social History ADL: Support Services Occupation: unemployed History of Recent Travel: No Admission ROS [facility] Chief Complaint: Heroin and alcohol withdrawal symptoms Allergies/Adverse Reactions: Allergies Allergy/AdvReac Type Severity Reaction Status Date / Time Fish Containing Products Allergy Severe Swelling Verified 07/02/20 13:32 No Known Drug Allergies Allergy Verified 07/02/20 13:32 History of Present Illness: 30 years old male with 10 years of heroin dependence and 15 years of alcohol dependence is seeking admission to detox. This is his 2nd admission to [facility] and he reports that he relapsed same day he was discharged in May 2020. He drinks 1 pint of Vodka and 1 x 6 pack Budweiser beer and uses 15 bags of heroin intravenous route daily. He has medical history of anemia, denies suicidal ideation at this time and reports psych. history of insomnia, depression and anxiety. He is unemployed, lives alone in an apartment and denies legal issues. 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 Exam Limitations: No Limitations - Ebola screening Have you traveled outside of the country in the last 21 days: No Have you had contact with anyone from an Ebola affected area: No Have you been sick,other than usual withdrawal symptoms: No Do you have a fever: No - Review of Systems Constitutional: Chills, Malaise, Night Sweats, Changes in sleep EENT: reports: No Symptoms Reported, Nose Congestion Respiratory: reports: No Symptoms reported Cardiac: reports: No Symptoms Reported GI: reports: No Symptoms Reported, Diarrhea (x 2), Nausea, Poor Appetite, Poor Fluid Intake, Abdominal cramping : reports: No Symptoms Reported Musculoskeletal: reports: Back Pain, Joint Pain, Muscle Pain Integumentary: reports: Dryness, Flushing Neuro: reports: Headache, Tremors Endocrine: reports: No Symptoms Reported Hematology: reports: No Symptoms Reported Psychiatric: reports: Mood/Affect Appropiate, Anxious, Depressed Other Systems: Reviewed and Negative Patient History - Patient Medical History Hx Anemia: Yes (Not on medication) Hx Asthma: No Hx Chronic Obstructive Pulmonary Disease (COPD): No Hx Cancer: No Hx Cardiac Disorders: No Hx Congestive Heart Failure: No Hx Hypertension: No Hx Hypercholesterolemia: No Hx Pacemaker: No HX Cerebrovascular Accident: No Hx Seizures: No Hx Dementia: No Hx Diabetes: No Hx Gastrointestinal Disorders: No Hx Liver Disease: No Hx Genitourinary Disorders: No Hx Sexually Transmitted Disorders: No Hx Renal Disease (ESRD): No Hx Thyroid Disease: No Hx Human Immunodeficiency Virus (HIV): No (Negative 2019) Hx Hepatitis C: No Hx Depression: Yes (+ anxiety - Gabapentin) Hx Suicide Attempt: No (Denies suicidal ideation at this time) Hx Bipolar Disorder: No Hx Schizophrenia: No - Patient Surgical History Past Surgical History: No Hx Neurologic Surgery: No Hx Cataract Extraction: No Hx Cardiac Surgery: No Hx Lung Surgery: No Hx Abdominal Surgery: No Hx Appendectomy: No Hx Cholecystectomy: No Hx Genitourinary Surgery: No Hx Orthopedic Surgery: No Anesthesia Reaction: No - PPD History Previous Implant?: Yes Documented Results: Negative w/proof Implanted On Prior [facility] Admission?: Yes Date: 05/31/20 PPD to be Administered?: No - Reproductive History Patient is a Female of Child Bearing Age (11 -55 yrs old): No (Male) - Smoking Cessation Smoking history: Former smoker Have you smoked in the past 12 months: No Hx Chewing Tobacco Use: No Initiated information on smoking cessation: No - Substance & Tx. History Hx Alcohol Use: Yes Hx Substance Use: Yes Substance Use Type: Alcohol, Cocaine, Heroin, Opiates Hx Substance Use Treatment: Yes ([facility]) - Substances abused Alcohol Substance route: Oral Frequency: Daily Amount used: 1 pint of Vodka and 1 x 6 pack Budweiser beer Age of first use: 15 Date of last use: 07/08/20 Heroin Substance route: Injection Frequency: Daily Amount used: 15 bags Age of first use: 20 Date of last use: 07/08/20 Admission Physical Exam [facility] - Vital Signs Vital Signs: Vital Signs - 24 hr 07/08/20 20:10 Temperature 97.9 F Pulse Rate 64 Respiratory 18 Rate Blood Pressure 122/77 - Physical General Appearance: Yes: Moderate Distress, Tremorous, Irritable, Anxious HEENTM: Yes: Within Normal Limits Respiratory: Yes: Lungs Clear, Normal Breath Sounds Neck: Yes: Within Normal Limits Breast: Yes: Breast Exam Deferred Cardiology: Yes: Regular Rhythm, Regular Rate Abdominal: Yes: Normal Bowel Sounds, Soft Genitourinary: Yes: Within Normal Limits Back: Yes: Normal Inspection Musculoskeletal: Yes: Back pain, Joint Stiffness, Muscle Pain Extremities: Yes: Tremors Neurological: Yes: Within Normal Limits Integumentary: Yes: Track Mcmullen (both hands), Other (tatoo) Lymphatic: Yes: Within Normal Limits - Diagnostic (1) Depression Current Visit: Yes Status: Acute (2) Anxiety Current Visit: Yes Status: Chronic (3) Alcohol dependence with uncomplicated withdrawal Current Visit: Yes Status: Acute (4) Anemia Current Visit: Yes Status: Chronic Qualifiers: Anemia type: iron deficiency (5) IVDU (intravenous drug user) Current Visit: Yes Status: Chronic (6) Opioid dependence with withdrawal Current Visit: Yes Status: Acute (7) Cocaine dependence Current Visit: Yes Status: Chronic (8) Insomnia Current Visit: Yes Status: Chronic Cleared for Admission [facility] - Detox or Rehab [facility] Level of Care: Medically Managed Detox Regimen/Protocol: Methadone/Librium Claeared for Rehab Admission: No Breathalyzer - Breathalyzer Breathalyzer: 0 Urine Drug Screen - Test Device Lot number: [id number] Expiration date: 02/17/22 - Control Is test valid?: Yes - Results Drug screen NEGATIVE: No Urine drug screen results: HEMAL-Cocaine, FEN-Fentanyl, MOP-Opiates Inpatient Rehab Admission - Rehab Decision to Admit Inpatient rehab admission?: No
[2020-07-08] MEDS ORDERED: ONDANSETRON *ODT* 4 MG TABLET SL ONE (20:58)
[2020-07-08] MEDS ORDERED: cloNIDine HCL 0.1 MG TABLET PO PRN (20:58)
[2020-07-08] MEDS ORDERED: MAGNESIUM HYDROX 2400MG/30ML ORAL SUSPENSION 30 ML CUP PO PRN (20:58)
[2020-07-08] MEDS ORDERED: ACETAMINOPHEN 325 MG TABLET (FP) PO PRN (20:58)
[2020-07-08] MEDS ORDERED: MAGNESIUM CITRATE 300 ML BOTTLE PO PRN (20:58)
[2020-07-08] MEDS ORDERED: MENTHOL/PHENOL 1 EACH UD MM PRN (20:58)
[2020-07-08] MEDS ORDERED: BISMUTH SUBSALICYLATE 524 MG/30 ML UD PO PRN (20:58)
[2020-07-08] MEDS ORDERED: METHADONE HCL 10 MG TABLET (FOR DETOX USE ONLY) PO ONE (22:00)
[2020-07-08] MEDS: chlordiazePOXIDE HCL 25 MG CAPSULE PO SCH (22:56)
[2020-07-08] MEDS: THIAMINE HCL 100 MG TABLET (FP) PO SCH (22:56)
[2020-07-08] MEDS: MELATONIN 5 MG TABLETS PO SCH (22:56)
[2020-07-09] MEDS: chlordiazePOXIDE HCL 25 MG CAPSULE PO SCH ×4 (06:04→22:05)
[2020-07-09] MEDS ORDERED: METHADONE HCL 10 MG TABLET (FOR DETOX USE ONLY) ONE (08:53)
[2020-07-09] MEDS ORDERED: METHADONE HCL 5 MG TABLET (FOR DETOX USE ONLY) ONE (08:53)
[2020-07-09] MEDS ORDERED: METHADONE (DETOX) 20 MG, METHADONE (DETOX) 5 MG PO ONE (10:00)
[2020-07-09] MEDS: PRENATAL VITAMINS W/ FOLIC ACID TABLET (FP) PO SCH (10:24)
[2020-07-09] MEDS: METHOCARBAMOL 500 MG TABLET PO PRN ×2 (10:25→22:05)
--- NOTE | 2020-07-09 10:37 | PN ---
[facility] CIWA - CIWA Score Nausea/Vomitin-No Nausea/No Vomiting Muscle Tremors: 2 Anxiety: 3 Agitation: 2 Paroxysmal Sweats: 3 Orientation: 0-Oriented Tacttile Disturbances: 0-None Auditory Disturbances: 0-None Visual Disturbances: 0-None Headache: 1-Very Mild CIWA-Ar Total Score: 11 S COWS - Scale Resting Pulse: 0= [place] 80 or Below Sweatin= Beads of Sweat on Face Restless Observation: 1= Difficult to Sit Still Pupil Size: 0= Normal to Room Light Bone or Joint Aches: 2= Severe Diffuse Aches Runny Nose/ Eye Tearin= None GI Upset > 30mins: 0= None Tremor Observation of Outstretched Hands: 2= Slight Tremor Visible Yawning Observation: 1= 1-2x During Session Anxiety or Irritability: 2=Irritable/Anxious Goose Flesh Skin: 0=Smooth Skin COWS Score: 11 S Progress Note (SOAP) Subjective: c/o muscle aches, anxiety, sweats, headache, irritability, and shakes. Objective: 07/09/20 10:36 Vital Signs 07/09/20 07/09/20 06:24 08:48 Temperature 97.4 F L 96.4 F L Pulse Rate 57 L 63 Respiratory 18 18 Rate Blood Pressure 118/67 113/61 O2 Sat by Pulse 99 99 Oximetry (%) Laboratory Last Values WBC 4.3 K/mm3 (4.0-10.0) 07/09/20 08:10 RBC 3.93 M/mm3 (4.00-5.60) L 07/09/20 08:10 Hgb 11.1 GM/dL (11.7-16.9) L 07/09/20 08:10 Hct 33.3 % (35.4-49) L 07/09/20 08:10 MCV 84.9 fl (80-96) 07/09/20 08:10 MCH 28.1 pg (25.7-33.7) 07/09/20 08:10 MCHC 33.2 g/dl (32.0-35.9) 07/09/20 08:10 RDW 14.2 % (11.9-15.9) 07/09/20 08:10 Plt Count 163 K/MM3 (134-434) 07/09/20 08:10 MPV 7.4 fl (7.5-11.1) L 07/09/20 08:10 Sodium 140 mmol/L (136-145) 07/09/20 08:10 Potassium 4.1 mmol/L (3.5-5.1) 07/09/20 08:10 Chloride 105 mmol/L (98-107) 07/09/20 08:10 Carbon Dioxide 32 mmol/L (21-32) 07/09/20 08:10 Anion Gap 3 MMOL/L (8-16) L 07/09/20 08:10 BUN 14.2 mg/dL (7-18) 07/09/20 08:10 Creatinine 0.9 mg/dL (0.55-1.3) 07/09/20 08:10 Est GFR (CKD-EPI)AfAm 132.37 07/09/20 08:10 Est GFR (CKD-EPI)NonAf 114.21 07/09/20 08:10 Random Glucose 95 mg/dL (74-106) 07/09/20 08:10 Calcium 8.9 mg/dL (8.5-10.1) 07/09/20 08:10 Total Bilirubin 0.5 mg/dL (0.2-1) 07/09/20 08:10 AST 12 U/L (15-37) L 07/09/20 08:10 ALT 18 U/L (13-61) 07/09/20 08:10 Alkaline Phosphatase 65 U/L (45-117) 07/09/20 08:10 Total Protein 6.8 g/dl (6.4-8.2) 07/09/20 08:10 Albumin 3.1 g/dl (3.4-5.0) L 07/09/20 08:10 Syphilis Serology Non-reactive (NONREACTIVE) 07/09/20 08:10 Labs noted. Assessment: 07/09/20 10:36 AOX3, in no acute respiratory distress. Full ROM, ambulating in the unit. Withdrawal symptoms. Plan: continue detox.
[2020-07-09 11:11] LABS: HEMATOCRIT 33.3 % (35.4-49); HEMOGLOBIN 11.1 GM/dL (11.7-16.9); MCH 28.1 pg (25.7-33.7); MCHC 33.2 g/dl (32.0-35.9); MEAN CELL VOLUME 84.9 fl (80-96); MEAN PLT VOLUME 7.4 fl (7.5-11.1); PLATELET COUNT 163 K/MM3 (134-434); RBC 3.93 M/mm3 (4.00-5.60); RDW 14.2 % (11.9-15.9); WHITE BLOOD COUNT 4.3 K/mm3 (4.0-10.0)
[2020-07-09 11:33] LABS: ALBUMIN 3.1 g/dl (3.4-5.0); BILIRUBIN,TOTAL 0.5 mg/dL (0.2-1); BLOOD UREA NITROGEN 14.2 mg/dL (7-18); CALCIUM 8.9 mg/dL (8.5-10.1); CREATININE 0.9 mg/dL (0.55-1.3); POTASSIUM 4.1 mmol/L (3.5-5.1); TOT PROT 6.8 g/dl (6.4-8.2)
[2020-07-09] MEDS: chlordiazePOXIDE HCL 25 MG CAPSULE PO PRN (14:01)
[2020-07-09] MEDS: IBUPROFEN 400 MG TABLET (FP) PO PRN (14:01)
--- NOTE | 2020-07-09 14:06 | CONSULT ---
[facility] Psychiatric Consult - Data Date of interview: 07/09/20 Admission source: [facility] Identifying data: Readmission to [facility] at [address] [place] [address] for this 30 y/o male, self-referred for detoxification treatment. JOSHUA issues : alcohol, cocaine, heroin, benzodiazepine (xanax), nicotine. 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 Substance Abuse History: Discussed with te patient. JOSHUA profile as follows : Smoking Cessation. Smoking history: Former smoker. Have you smoked in the past 12 months: No. Hx Chewing Tobacco Use: No. Initiated information on smoking cessation: No. - Substance & Tx. History. Hx Alcohol Use: Yes. Hx Substance Use: Yes. Substance Use Type: Alcohol, Cocaine, Heroin, Opiates. Hx Substance Use Treatment: Yes ([facility]). - Substances abused. Alcohol. Substance route: Oral. Frequency: Daily. Amount used: 1 pint of Vodka and 1 x 6 pack Budweiser beer. Age of first use: 15. Date of last use: 07/08/20. Heroin. Substance route: Injection. Frequency: Daily. Amount used: 15 bags. Age of first use: 20. Date of last use: 07/08/20. Patient has been able to stay sober for four years (in his early 20's). History of multiple JOSHUA treatment failures. Medical History: Medical history is remarkable for a recent of pneumonia (warranted two months of hospitalization). Psychiatric History: No change in personal history since encounter of 05/29/20. Long standing history of psychiatric illness. Onset at age 13 (runaway behavior, involvement with drugs, behavioral disurbances). Mr Huerta indicates a background of multiple psychiatric hospitalizations ([facility] + [facility] + [facility] + unnamed institution located in [facility]). Diagnosed with MDD, OCD and Anxiety Disorder. For past four years, until recently (2019), the patient has received his OPD psychiatric services at [facility] in [facility]. He has been treated with various molecules which include gabapentin, venlafaxine, mirtazapine, aripriprazole and other unnamed formulations. Patient reports that since the scientology of the COVID- 19 pandemic, he has not been able to connect with a psychiatric care provider (consequently, he could not get his medications). He aknowledges history of two suicide attempts (overdoses with drugs : first one at age 20 + second attempt occurred in June 2019). Physical/Sexual Abuse/Trauma History: Patient denies history of abuse. Additional Comment: Urine drug screen results: HEMAL-Cocaine, FEN-Fentanyl, MOP- Opiates. Noted. Mental Status Exam - Mental Status Exam Alert and Oriented to: Time, Place, Person Cognitive Function: Good Patient Appearance: Well Groomed (tattoos : neck, upper extremities, pierced earlobes) Mood: Nervous, Withdrawn, Hopeful Affect: Appropriate, Normal Range Patient Behavior: Fatigued, Appropriate, Cooperative Speech Pattern: Clear, Appropriate Voice Loudness: Normal Thought Process: Intact, Goal Oriented Thought Disorder: Not Present Hallucinations: Denies Suicidal Ideation: Denies Homicidal Ideation: Denies Insight/Judgement: Poor Sleep: Poorly, Difficulty falling asleep Appetite: Good Gait/Station: Normal Psychiatric Findings - Problem List ([place] 1, 2,3) (1) Alcohol dependence with uncomplicated withdrawal Current Visit: Yes Status: Acute (2) Uncomplicated sedative, hypnotic or anxiolytic withdrawal Current Visit: Yes Status: Acute (3) Opioid dependence with withdrawal Current Visit: Yes Status: Acute (4) Cocaine dependence Current Visit: Yes Status: Chronic (5) Nicotine dependence Current Visit: Yes Status: Chronic (6) History of depression Current Visit: Yes Status: Chronic (7) Substance induced mood disorder Current Visit: Yes Status: Chronic (8) Insomnia Current Visit: Yes Status: Chronic (9) Non-compliance Current Visit: Yes Status: Chronic - Initial Treatment Plan Initial Treatment Plan: Examined with medical students in attendance (with patient's verbal consent). Psychoeducation. Support. Detoxification in progress. Resumed, at patient's request : remeron 15 mg po hs. Side effects/benefits discussed with the patient. Consent (verbal) granted to MD. Browning.
[2020-07-09] MEDS: hydrOXYzine PAMOATE 25 MG CAPSULE (FP) PO PRN (17:36)
[2020-07-09] MEDS: MELATONIN 5 MG TABLETS PO SCH (22:03)
[2020-07-09] MEDS: THIAMINE HCL 100 MG TABLET (FP) PO SCH (22:03)
[2020-07-09] MEDS: MIRTAZAPINE 15 MG TABLET (FP) PO SCH (22:06)
[2020-07-10] MEDS: chlordiazePOXIDE HCL 25 MG CAPSULE PO SCH ×4 (05:49→22:18)
[2020-07-10] MEDS ORDERED: METHADONE HCL 10 MG TABLET (FOR DETOX USE ONLY) PO ONE (10:00)
[2020-07-10] MEDS: PRENATAL VITAMINS W/ FOLIC ACID TABLET (FP) PO SCH (10:08)
[2020-07-10] MEDS: METHOCARBAMOL 500 MG TABLET PO PRN ×2 (10:09→18:08)
--- NOTE | 2020-07-10 10:10 | PN ---
[facility] CIWA - CIWA Score Nausea/Vomitin-No Nausea/No Vomiting Muscle Tremors: None Anxiety: 3 Agitation: 1-Slight > Activity Paroxysmal Sweats: 3 Orientation: 0-Oriented Tacttile Disturbances: 0-None Auditory Disturbances: 0-None Visual Disturbances: 0-None Headache: 2-Mild CIWA-Ar Total Score: 9 S COWS - Scale Resting Pulse: 0= [place] 80 or Below Sweatin= Chills/Flushing Restless Observation: 1= Difficult to Sit Still Pupil Size: 0= Normal to Room Light Bone or Joint Aches: 2= Severe Diffuse Aches Runny Nose/ Eye Tearin= None GI Upset > 30mins: 0= None Tremor Observation of Outstretched Hands: 0= None Yawning Observation: 2= >3x During Session Anxiety or Irritability: 2=Irritable/Anxious Goose Flesh Skin: 0=Smooth Skin COWS Score: 8 S Progress Note (SOAP) Subjective: c/o sweats, anxiety, irritability, muscle aches, and headache. Objective: 07/10/20 10:09 Vital Signs 07/10/20 07/10/20 05:39 08:47 Temperature 97.1 F L 98.2 F Pulse Rate 64 57 L Respiratory 18 16 Rate Blood Pressure 123/89 127/73 O2 Sat by Pulse 100 Oximetry (%) Laboratory Last Values WBC 4.3 K/mm3 (4.0-10.0) 07/09/20 08:10 RBC 3.93 M/mm3 (4.00-5.60) L 07/09/20 08:10 Hgb 11.1 GM/dL (11.7-16.9) L 07/09/20 08:10 Hct 33.3 % (35.4-49) L 07/09/20 08:10 MCV 84.9 fl (80-96) 07/09/20 08:10 MCH 28.1 pg (25.7-33.7) 07/09/20 08:10 MCHC 33.2 g/dl (32.0-35.9) 07/09/20 08:10 RDW 14.2 % (11.9-15.9) 07/09/20 08:10 Plt Count 163 K/MM3 (134-434) 07/09/20 08:10 MPV 7.4 fl (7.5-11.1) L 07/09/20 08:10 Sodium 140 mmol/L (136-145) 07/09/20 08:10 Potassium 4.1 mmol/L (3.5-5.1) 07/09/20 08:10 Chloride 105 mmol/L (98-107) 07/09/20 08:10 Carbon Dioxide 32 mmol/L (21-32) 07/09/20 08:10 Anion Gap 3 MMOL/L (8-16) L 07/09/20 08:10 BUN 14.2 mg/dL (7-18) 07/09/20 08:10 Creatinine 0.9 mg/dL (0.55-1.3) 07/09/20 08:10 Est GFR (CKD-EPI)AfAm 132.37 07/09/20 08:10 Est GFR (CKD-EPI)NonAf 114.21 07/09/20 08:10 Random Glucose 95 mg/dL (74-106) 07/09/20 08:10 Calcium 8.9 mg/dL (8.5-10.1) 07/09/20 08:10 Total Bilirubin 0.5 mg/dL (0.2-1) 07/09/20 08:10 AST 12 U/L (15-37) L 07/09/20 08:10 ALT 18 U/L (13-61) 07/09/20 08:10 Alkaline Phosphatase 65 U/L (45-117) 07/09/20 08:10 Total Protein 6.8 g/dl (6.4-8.2) 07/09/20 08:10 Albumin 3.1 g/dl (3.4-5.0) L 07/09/20 08:10 Syphilis Serology Non-reactive (NONREACTIVE) 07/09/20 08:10 Labs noted. Assessment: 07/10/20 10:09 AOX3, in no acute respiratory distress. Full ROM, ambulating in the unit. Withdrawal symptoms. Plan: continue detox.
--- NOTE | 2020-07-10 12:48 | PN ---
[facility] Progress Note Note: Psychiatry Attending's note : Gabapentin is added to regimen. At patient's request : 600 mg po bid. Side effects/benefits discussed. Consent (verbal) granted by Mr Huerta.
[2020-07-10] MEDS: GABAPENTIN 300 MG CAPSULE PO SCH ×2 (13:08→22:18)
[2020-07-10] MEDS: chlordiazePOXIDE HCL 25 MG CAPSULE PO PRN (13:09)
[2020-07-10] MEDS: MAG HYDROX/AL HYDROX/SIMETH 30 ML UNIT-DOSE CUP PO PRN (13:09)
[2020-07-10] MEDS: IBUPROFEN 400 MG TABLET (FP) PO PRN (18:08)
[2020-07-10] MEDS: THIAMINE HCL 100 MG TABLET (FP) PO SCH (22:18)
[2020-07-10] MEDS: MIRTAZAPINE 15 MG TABLET (FP) PO SCH ×2 (22:18→22:20)
[2020-07-10] MEDS: MELATONIN 5 MG TABLETS PO SCH (22:18)
[2020-07-11] MEDS: chlordiazePOXIDE HCL 10 MG CAPSULE PO SCH ×4 (06:06→22:09)
[2020-07-11] MEDS: GABAPENTIN 300 MG CAPSULE PO SCH ×3 (06:06→22:10)
[2020-07-11] MEDS ORDERED: METHADONE HCL 10 MG TABLET (FOR DETOX USE ONLY) ONE (08:49)
[2020-07-11] MEDS ORDERED: METHADONE HCL 5 MG TABLET (FOR DETOX USE ONLY) ONE (08:50)
[2020-07-11] MEDS ORDERED: METHADONE (DETOX) 10 MG, METHADONE (DETOX) 5 MG PO ONE (10:00)
[2020-07-11] MEDS: PRENATAL VITAMINS W/ FOLIC ACID TABLET (FP) PO SCH (10:10)
[2020-07-11] MEDS: METHOCARBAMOL 500 MG TABLET PO PRN ×2 (10:12→22:12)
[2020-07-11] MEDS ORDERED: LOPERAMIDE HCL 2 MG CAPSULE PO ONE (12:49)
--- NOTE | 2020-07-11 12:51 | PN ---
S CIWA - CIWA Score Nausea/Vomitin-Mild Nausea/No Vomiting Muscle Tremors: 1-None Visible, but [place] Anxiety: 1-Mildly Anxious Agitation: 1-Slight > Activity Paroxysmal Sweats: 1-Minimal Palms Moist Orientation: 0-Oriented Tacttile Disturbances: 0-None Auditory Disturbances: 0-None Visual Disturbances: 1-Very Mild Sensitivity Headache: 1-Very Mild CIWA-Ar Total Score: 7 S COWS - Scale Resting Pulse: 0= [place] 80 or Below Sweatin= Chills/Flushing Restless Observation: 0= Sits Still Pupil Size: 1= Pupils >than Normal Bone or Joint Aches: 1= Mild Discomfort Runny Nose/ Eye Tearin= Nasal Congestion GI Upset > 30mins: 1= Stomach Cramp Tremor Observation of Outstretched Hands: 1= Tremor [place], Not Seen Yawning Observation: 0= None Anxiety or Irritability: 1=Feels Anxious/Irritable Goose Flesh Skin: 0=Smooth Skin COWS Score: 7 S Progress Note (SOAP) Subjective: 30 years old male was admitted on 07/08/20 for alcohol and opiate withdrawal sx management treating with librium and methadone detox regiments requests clonidine for hot and cold encourage oral fluid and physical activities walking on hallway and bp monitoring Objective: 07/11/20 12:52 Vital Signs - 24 hr 07/10/20 07/10/20 07/11/20 16:41 20:50 06:03 Temperature 97.5 F L 97.7 F 97.0 F L Pulse Rate 55 L 60 50 L Respiratory 18 18 18 Rate Blood Pressure 115/67 108/62 107/60 O2 Sat by Pulse 97 99 Oximetry (%) 07/11/20 08:42 Temperature 97.3 F L Pulse Rate 59 L Respiratory 18 Rate Blood Pressure 115/72 O2 Sat by Pulse Oximetry (%) Laboratory Tests 07/08/20 07/09/20 07/09/20 20:59 08:10 08:10 WBC 4.3 RBC 3.93 L Hgb 11.1 L Hct 33.3 L MCV 84.9 MCH 28.1 MCHC 33.2 RDW 14.2 Plt Count 163 MPV 7.4 L Sodium Potassium Chloride Carbon Dioxide Anion Gap BUN Creatinine Est GFR (CKD-EPI)AfAm Est GFR (CKD-EPI)NonAf Random Glucose Calcium Total Bilirubin AST ALT Alkaline Phosphatase Total Protein Albumin Syphilis Serology Non-reactive COVID-19 (LUCINA) Not detected 07/09/20 08:10 WBC RBC Hgb Hct MCV MCH MCHC RDW Plt Count MPV Sodium 140 Potassium 4.1 Chloride 105 Carbon Dioxide 32 Anion Gap 3 L BUN 14.2 Creatinine 0.9 Est GFR (CKD-EPI)AfAm 132.37 Est GFR (CKD-EPI)NonAf 114.21 Random Glucose 95 Calcium 8.9 Total Bilirubin 0.5 AST 12 L ALT 18 Alkaline Phosphatase 65 Total Protein 6.8 Albumin 3.1 L Syphilis Serology COVID-19 (LUCINA) 07/11/20 12:53 lab noted Assessment: 07/11/20 12:53 alcohol and opiate withdrawal Plan: librium and methadone regiments
[2020-07-11] MEDS: chlordiazePOXIDE HCL 10 MG CAPSULE PO PRN ×2 (13:39→20:41)
[2020-07-11] MEDS: hydrOXYzine PAMOATE 25 MG CAPSULE (FP) PO PRN (13:40)
[2020-07-11] MEDS: IBUPROFEN 400 MG TABLET (FP) PO PRN (20:40)
[2020-07-11] MEDS: cloNIDine HCL 0.1 MG TABLET PO PRN (20:41)
[2020-07-11] MEDS: MELATONIN 5 MG TABLETS PO SCH (22:09)
[2020-07-11] MEDS: THIAMINE HCL 100 MG TABLET (FP) PO SCH (22:10)
[2020-07-11] MEDS: MIRTAZAPINE 15 MG TABLET (FP) PO SCH (22:11)
[2020-07-12] MEDS: chlordiazePOXIDE HCL 10 MG CAPSULE PO SCH ×2 (05:39→17:20)
[2020-07-12] MEDS: GABAPENTIN 300 MG CAPSULE PO SCH ×3 (05:40→22:16)
[2020-07-12] MEDS: cloNIDine HCL 0.1 MG TABLET PO PRN (06:16)
[2020-07-12] MEDS: METHOCARBAMOL 500 MG TABLET PO PRN ×3 (06:16→22:17)
[2020-07-12] MEDS ORDERED: METHADONE HCL 10 MG TABLET (FOR DETOX USE ONLY) PO ONE (10:00)
[2020-07-12] MEDS: PRENATAL VITAMINS W/ FOLIC ACID TABLET (FP) PO SCH (10:03)
[2020-07-12] MEDS: ACETAMINOPHEN 325 MG TABLET (FP) PO PRN (10:05)
[2020-07-12] MEDS ORDERED: DICYCLOMINE HCL 10 MG CAPSULE PO ONE (11:18)
--- NOTE | 2020-07-12 11:23 | PN ---
[facility] CIWA - CIWA Score Nausea/Vomitin-Mild Nausea/No Vomiting Muscle Tremors: 1-None Visible, but [place] Anxiety: 1-Mildly Anxious Agitation: 0-Normal Activity Paroxysmal Sweats: 1-Minimal Palms Moist Orientation: 0-Oriented Tacttile Disturbances: 0-None Auditory Disturbances: 0-None Visual Disturbances: 0-None Headache: 1-Very Mild CIWA-Ar Total Score: 5 S COWS - Scale Resting Pulse: 0= [place] 80 or Below Sweatin= No chills or Flushing Restless Observation: 0= Sits Still Pupil Size: 0= Normal to Room Light Bone or Joint Aches: 1= Mild Discomfort Runny Nose/ Eye Tearin= None GI Upset > 30mins: 1= Stomach Cramp Tremor Observation of Outstretched Hands: 1= Tremor [place], Not Seen Yawning Observation: 0= None Anxiety or Irritability: 2=Irritable/Anxious Goose Flesh Skin: 0=Smooth Skin COWS Score: 5 S Progress Note (SOAP) Subjective: 30 years old male was admitted on 07/08/20 for alcohol and opiate withdrawal sx management treating with librium and methadone detox regiment feels ok today mild abdominal cramping bentyl 20 mg po x 1 mild general body aches tylenal given continue monitor effectiveness Objective: 07/12/20 11:28 Vital Signs - 24 hr 07/11/20 07/11/20 07/11/20 12:22 16:32 20:24 Temperature 97.0 F L 98.2 F 97.3 F L Pulse Rate 64 52 L 81 Respiratory 18 17 17 Rate Blood Pressure 120/70 107/58 L 95/61 O2 Sat by Pulse 100 98 Oximetry (%) 07/12/20 07/12/20 05:36 08:35 Temperature 97.2 F L 97.1 F L Pulse Rate 52 L 59 L Respiratory 17 18 Rate Blood Pressure 99/59 L 102/61 O2 Sat by Pulse 100 100 Oximetry (%) Laboratory Tests 07/08/20 07/09/20 07/09/20 20:59 08:10 08:10 WBC 4.3 RBC 3.93 L Hgb 11.1 L Hct 33.3 L MCV 84.9 MCH 28.1 MCHC 33.2 RDW 14.2 Plt Count 163 MPV 7.4 L Sodium Potassium Chloride Carbon Dioxide Anion Gap BUN Creatinine Est GFR (CKD-EPI)AfAm Est GFR (CKD-EPI)NonAf Random Glucose Calcium Total Bilirubin AST ALT Alkaline Phosphatase Total Protein Albumin Syphilis Serology Non-reactive COVID-19 ([facility]UCINA) Not detected 07/09/20 08:10 WBC RBC Hgb Hct MCV MCH MCHC RDW Plt Count MPV Sodium 140 Potassium 4.1 Chloride 105 Carbon Dioxide 32 Anion Gap 3 L BUN 14.2 Creatinine 0.9 Est GFR (CKD-EPI)AfAm 132.37 Est GFR (CKD-EPI)NonAf 114.21 Random Glucose 95 Calcium 8.9 Total Bilirubin 0.5 AST 12 L ALT 18 Alkaline Phosphatase 65 Total Protein 6.8 Albumin 3.1 L Syphilis Serology COVID-19 (LUCINA) lab noted Assessment: 07/12/20 11:29 alcohol and opiate withdrawal Plan: librium and methadone regiments
[2020-07-12] MEDS: hydrOXYzine PAMOATE 25 MG CAPSULE (FP) PO PRN ×3 (13:03→22:17)
[2020-07-12] MEDS: IBUPROFEN 400 MG TABLET (FP) PO PRN (17:23)
[2020-07-12] MEDS: MELATONIN 5 MG TABLETS PO SCH (22:15)
[2020-07-12] MEDS: THIAMINE HCL 100 MG TABLET (FP) PO SCH (22:16)
[2020-07-12] MEDS: MAG HYDROX/AL HYDROX/SIMETH 30 ML UNIT-DOSE CUP PO PRN (22:27)
[2020-07-12] MEDS: MIRTAZAPINE 15 MG TABLET (FP) PO SCH (22:27)
[2020-07-13] MEDS ORDERED: chlordiazePOXIDE HCL 10 MG CAPSULE PO ONE (05:00)
[2020-07-13] MEDS: GABAPENTIN 300 MG CAPSULE PO SCH (05:34)
[2020-07-13] MEDS: METHOCARBAMOL 500 MG TABLET PO PRN (05:35)
[2020-07-13] MEDS ORDERED: METHADONE HCL 5 MG TABLET (FOR DETOX USE ONLY) PO ONE (06:00)
[2020-07-13 09:18] VITALS: BP 124/67; PULSE 73; TEMP 97.1
[2020-07-13] MEDS: PRENATAL VITAMINS W/ FOLIC ACID TABLET (FP) PO SCH (10:40)
[2020-07-13] MEDS: ACETAMINOPHEN 325 MG TABLET (FP) PO PRN (10:42)
[2020-07-13] MEDS: cloNIDine HCL 0.1 MG TABLET PO PRN (10:42)
--- NOTE | 2020-07-13 11:09 | DS ---
[facility] Detox Discharge Summary Admission Date: 07/08/20 Discharge Date: 07/13/20 - History Present History: Alcohol Dependence, Opioid Dependence Additional Comments: 30 years old male was admitted on 07/08/20 for alcohol and opiate withdrawal sx management treated with librium and methadone detox regiments seen by psychiatrist josé miguel gabapentin and remeron mr moore has completed the librium and methadone regiments and is tolerated well General Appearance: Yes: no Distress, mild Tremorous, not Irritable, mild Anxious HEENTM: Yes: Within Normal Limits Respiratory: Yes: Lungs Clear, Normal Breath Sounds Neck: Yes: Within Normal Limits Breast: Yes: Breast Exam Deferred Cardiology: Yes: Regular Rhythm, Regular Rate Abdominal: Yes: Normal Bowel Sounds, Soft Genitourinary: Yes: Within Normal Limits Back: Yes: Normal Inspection Musculoskeletal: Yes: mild Back pain, less Joint Stiffness, no Muscle Pain Extremities: Yes: less Tremors Neurological: Yes: Within Normal Limits Integumentary: Yes: Track Mcmullen (both hands), Other (tatoo) Lymphatic: Yes: Within Normal Limits Pertinent Past History: time for discharge 48 minutes transferred detox order set from detox to rehab - Physical Exam Results Vital Signs: Vital Signs Temperature 97.1 F L 07/13/20 08:32 Pulse Rate 73 07/13/20 08:32 Respiratory Rate 18 07/13/20 08:32 Blood Pressure 124/67 07/13/20 08:32 O2 Sat by Pulse Oximetry (%) 100 07/13/20 08:32 Pertinent Admission Physical Exam Findings: alcohol and opiate withdrawal Vital Signs - 24 hr 07/12/20 07/12/20 07/12/20 12:32 16:28 20:33 Temperature 97.3 F L 97.7 F 97.3 F L Pulse Rate 73 48 L 70 Respiratory 16 18 18 Rate Blood Pressure 118/68 101/50 L 114/62 O2 Sat by Pulse 100 100 99 Oximetry (%) 07/13/20 07/13/20 06:32 08:32 Temperature 97.4 F L 97.1 F L Pulse Rate 58 L 73 Respiratory 18 18 Rate Blood Pressure 114/60 124/67 O2 Sat by Pulse 100 100 Oximetry (%) Laboratory Tests 07/08/20 07/09/20 07/09/20 20:59 08:10 08:10 WBC 4.3 RBC 3.93 L Hgb 11.1 L Hct 33.3 L MCV 84.9 MCH 28.1 MCHC 33.2 RDW 14.2 Plt Count 163 MPV 7.4 L Sodium Potassium Chloride Carbon Dioxide Anion Gap BUN Creatinine Est GFR (CKD-EPI)AfAm Est GFR (CKD-EPI)NonAf Random Glucose Calcium Total Bilirubin AST ALT Alkaline Phosphatase Total Protein Albumin Syphilis Serology Non-reactive COVID-19 (LUCINA) Not detected 07/09/20 08:10 WBC RBC Hgb Hct MCV MCH MCHC RDW Plt Count MPV Sodium 140 Potassium 4.1 Chloride 105 Carbon Dioxide 32 Anion Gap 3 L BUN 14.2 Creatinine 0.9 Est GFR (CKD-EPI)AfAm 132.37 Est GFR (CKD-EPI)NonAf 114.21 Random Glucose 95 Calcium 8.9 Total Bilirubin 0.5 AST 12 L ALT 18 Alkaline Phosphatase 65 Total Protein 6.8 Albumin 3.1 L Syphilis Serology COVID-19 ([facility]UCINA) lab noted - Treatment Hospital Course: Detox Protocol Followed, Detoxed Safely, Responded well, Discharged Condition Good, Rehab Referral Accepted Patient has [facility] - Medication Discharge Medications: Ambulatory Orders Gabapentin 600 mg PO TID 05/29/20 Ferrous Sulfate [Feosol] 325 mg PO BIDWM 15 Days #30 ud 06/01/20 Mirtazapine [Remeron -] 15 mg PO HS #30 tablet 06/01/20 Potassium Chloride [K-Dur -] 20 meq PO DAILY 5 Days #5 tablet.er 06/01/20 Naloxone HCl [Narcan] 4 mg NS ASDIR PRN #1 spray 07/12/20 - Diagnosis (1) Alcohol dependence with uncomplicated withdrawal Current Visit: Yes Status: Acute (2) Opioid dependence with withdrawal Current Visit: Yes Status: Acute (3) Nicotine dependence Current Visit: Yes Status: Acute Qualifiers: Nicotine product type: cigarettes Substance use status: in withdrawal Qualified Code(s): F17.213 - Nicotine dependence, cigarettes, with withdrawal (4) Substance induced mood disorder Current Visit: Yes Status: Chronic (5) Weight loss Current Visit: Yes Status: Suspected - AMA Did Patient Leave Against Medical Advice: No CIWA Score - CIWA Score Nausea/Vomitin-Mild Nausea/No Vomiting Muscle Tremors: 1-None Visible, but [place] Anxiety: 1-Mildly Anxious Agitation: 0-Normal Activity Paroxysmal Sweats: No Perspiration Orientation: 0-Oriented Tacttile Disturbances: 0-None Auditory Disturbances: 0-None Visual Disturbances: 0-None Headache: 0-None Present CIWA-Ar Total Score: 3 COWS (PN) - Opiate Withdrawal Resting Pulse: 0= [place] 80 or Below Sweatin= No chills or Flushing Restless Observation: 0= Sits Still Pupil Size: 0= Normal to Room Light Bone or Joint Aches: 1= Mild Discomfort Runny Nose/ Eye Tearin= None GI Upset > 30mins: 0= None Tremor Observation of Outstretched Hands: 1= Tremor Breaks, Not Seen Yawning Observation: 0= None Anxiety or Irritability: 1=Feels Anxious/Irritable Goose Flesh Skin: 0=Smooth Skin COWS Score: 3
== END 2020-07-13 12:22 | disposition other institution (70) | DRG 773 ==
LOC: YASAS 18:52 → Y3N 21:31
PROVIDERS: ADMIT Allergy & Immunology; ATTEND Allergy & Immunology
PROC: HZ2ZZZZ Detoxification Services for Substance Abuse Treatment (ICD-10-PCS; principal; 2020-07-08)
DX: F10.230 Alcohol dependence with withdrawal, uncomplicated (principal); F11.23 Opioid dependence with withdrawal; F13.230 Sedative, hypnotic or anxiolytic dependence with withdrawal, uncomplicated; F14.20 Cocaine dependence, uncomplicated; F17.213 Nicotine dependence, cigarettes, with withdrawal; F17.211 Nicotine dependence, cigarettes, in remission; F19.24 Other psychoactive substance dependence with psychoactive substance-induced mood disorder; F32.9 Major depressive disorder, single episode, unspecified; D50.9 Iron deficiency anemia, unspecified; R63.4 Abnormal weight loss; Z68.22 Body mass index [BMI] 22.0-22.9, adult; Z91.013 Allergy to seafood; Z91.19 Patient's noncompliance with other medical treatment and regimen; Z56.0 Unemployment, unspecified
CPT/HCPCS: 36415; 80053; 85027; 86780; J0735; Q0162; U0003

== ENCOUNTER 2020-07-13 12:36 | Inpatient (IN) | payer OTHER ==
--- NOTE | 2020-07-13 11:31 | HP ---
[facility] Rehab Assess/Revision - Admission History Admitted to Rehab from: [facility] Date of Admission to Rehab: 07/13/20 - Findings Detox History & Physical reviewed: Yes Concur with findings: Yes Comments/Additional Findings: transferred from detox to rehab admission as per protocol Inpatient Rehab Admission - Rehab Decision to Admit Inpatient rehab admission?: Yes - Initial Determination Are CD services needed?: Yes Free of communicable disease: Yes Not in need of hospitalization: Yes - Rehab Admission Criteria Previous failed treatment: Yes Poor recovery environment: Yes Comorbidities: Yes Lacks judgement: Yes Patient is meeting Inpatient Rehab admission criteria:: Yes
[~2020-07-13 12:36] MED LIST: LOPERAMIDE HCL 2 MG CAPSULE PO PRN; MAG HYDROX/AL HYDROX/SIMETH 30 ML UNIT-DOSE CUP PO PRN; MAGNESIUM CITRATE 300 ML BOTTLE PO PRN; MAGNESIUM HYDROX 2400MG/30ML ORAL SUSPENSION 30 ML CUP PO PRN; NICOTINE POLACRILEX 2 MG GUM BC PRN; P-EPHED 60MG/TRIPROLIDI 2.5MG TABLET PO PRN; guaiFENesin 200 MG/10 ML 10 ML UNIT-DOSE CUPS PO PRN
[2020-07-13] MEDS: GABAPENTIN 300 MG CAPSULE PO SCH ×2 (14:29→21:24)
[2020-07-13] MEDS: METHOCARBAMOL 500 MG TABLET PO PRN ×2 (14:41→21:24)
[2020-07-13] MEDS: hydrOXYzine PAMOATE 25 MG CAPSULE (FP) PO PRN ×2 (14:41→21:24)
[2020-07-13] MEDS: MELATONIN 5 MG TABLETS PO SCH (21:24)
[2020-07-13] MEDS: THIAMINE HCL 100 MG TABLET (FP) PO SCH (21:24)
[2020-07-13] MEDS ORDERED: MIRTAZAPINE 15 MG TABLET (FP) PO SCH (22:00)
[2020-07-14] MEDS: GABAPENTIN 300 MG CAPSULE PO SCH ×3 (06:18→21:12)
[2020-07-14] MEDS: NICOTINE 7 MG/24 HOURS TOPICAL PATCH TD SCH (10:05)
[2020-07-14] MEDS: hydrOXYzine PAMOATE 25 MG CAPSULE (FP) PO PRN ×3 (10:05→21:12)
[2020-07-14] MEDS: METHOCARBAMOL 500 MG TABLET PO PRN ×2 (10:05→21:13)
[2020-07-14] MEDS: PRENATAL VITAMINS W/ FOLIC ACID TABLET (FP) PO SCH (10:06)
--- NOTE | 2020-07-14 12:45 | CONSULT ---
[facility] Psychiatric Consult - Data Date of interview: 07/14/20 Admission source: [facility] Identifying data: Patient is a 30 year old single male, without children, unemployed, domiciled, and is supported by A. This is one of multiple admissions for patient. Patient admitted to for alcohol, cocaine, heroin, benzodiazepine (xanax), and nicotine dependence. Substance Abuse History: Smoking Cessation. Smoking history: Former smoker. Have you smoked in the past 12 months: No. Hx Chewing Tobacco Use: No. Initiated information on smoking cessation: No. - Substance & Tx. History. Hx Alcohol Use: Yes. Hx Substance Use: Yes. Substance Use Type: Alcohol, Cocaine, Heroin, Opiates. Hx Substance Use Treatment: Yes ([facility]). - Substances abused. Alcohol. Substance route: Oral. Frequency: Daily. Amount used: 1 pint of Vodka and 1 x 6 pack Budweiser beer. Age of first use: 15. Date of last use: 07/08/20. Heroin. Substance route: Injection. Frequency: Daily. Amount used: 15 bags. Age of first use: 20. Date of last use: 07/08/20 Medical History: History of pneumonia which resulted in two month hospitalization. Psychiatric History: Mr. Huerta's first psychiatric contact was at 13 years of age due to behavioral disturbances and involvement with drugs. History of multiple psychiatric hospitalizations ([facility] + [facility] + [facility] + [facility], [facility] + [facility] and facilities [facility]). Diagnosed with MDD, OCD, Bipolar disorder and Anxiety Disorder. Sarah ent reports past treatment with gabapentin, venlafaxine, mirtazapine, aripriprazole, lithium and depakote. Patient has been receiving outpatient psychiatric services at [facility], detox/rehab facilities, and [facility] residental programs. Stated to food writer that he was prescribed lithium at [facility] in 2019 but medication was switched to depakote 500mg BID while at [facility] two months ago (reports having the depakote in his belongings). States that he last took depakote before admission. Patient appears to be a reliable historian. Patient prescribed remeron 15mg HS by Dr. Villegas in detox but patient is requesting to discontinue medication as he states that it is making him restless. History of two suicide attempts (overdoses with drugs : first one at age 20 + second attempt occurred in June 2019). At present patient reports stable mood but does report moments of irritability and restlessness. Physical/Sexual Abuse/Trauma History: denies. Mental Status Exam - Mental Status Exam Alert and Oriented to: Time, Place, Person Cognitive Function: Good Patient Appearance: Well Groomed Mood: Hopeful Affect: Appropriate Patient Behavior: Cooperative Speech Pattern: Appropriate Voice Loudness: Normal Thought Process: Goal Oriented Thought Disorder: Not Present Hallucinations: Denies Suicidal Ideation: Denies Homicidal Ideation: Denies Insight/Judgement: Poor Sleep: Fair Appetite: Fair Muscle strength/Tone: Normal Gait/Station: Normal Psychiatric Findings - Problem List ([place] 1, 2,3) (1) Alcohol use disorder Status: Acute (2) Nicotine dependence Status: Acute Qualifiers: Nicotine product type: cigarettes Substance use status: in withdrawal Qualified Code(s): F17.213 - Nicotine dependence, cigarettes, with withdrawal (3) Opioid dependence Status: Acute (4) Cocaine dependence Status: Chronic (5) Mood disorder Status: Chronic - Initial Treatment Plan Initial Treatment Plan: Psychoeducation provided. Rehab in progress. Will d/c remeron 15mg HS. Will order Depakote 250mg daily + Depakote 500mg HS + Berlsomra 10mg HS PRN. Benefits and side effects discussed. Verbal consent given.
[2020-07-14 15:32] LABS: HEMATOCRIT 38.4 % (35.4-49); HEMOGLOBIN 12.6 GM/dL (11.7-16.9); MCHC 32.8 g/dl (32.0-35.9); MEAN CELL VOLUME 85.5 fl (80-96); MEAN PLT VOLUME 7.7 fl (7.5-11.1); PLATELET COUNT 194 K/MM3 (134-434); RBC 4.49 M/mm3 (4.00-5.60); RDW 14.1 % (11.9-15.9); WHITE BLOOD COUNT 6.4 K/mm3 (4.0-10.0)
[2020-07-14] MEDS: THIAMINE HCL 100 MG TABLET (FP) PO SCH (21:13)
[2020-07-14] MEDS: MELATONIN 5 MG TABLETS PO SCH (21:13)
[2020-07-14] MEDS: DIVALPROEX SODIUM 500 MG TABLET E.C. PO SCH (21:14)
[2020-07-14] MEDS: SUVOREXANT 10 MG TABLET PO PRN (21:14)
[2020-07-15] MEDS: GABAPENTIN 300 MG CAPSULE PO SCH ×3 (06:26→21:14)
[2020-07-15] MEDS: hydrOXYzine PAMOATE 25 MG CAPSULE (FP) PO PRN (06:27)
[2020-07-15] MEDS: PRENATAL VITAMINS W/ FOLIC ACID TABLET (FP) PO SCH (09:08)
[2020-07-15] MEDS: DIVALPROEX SODIUM 250 MG TABLET E.C. PO SCH (09:08)
[2020-07-15] MEDS: NICOTINE 7 MG/24 HOURS TOPICAL PATCH TD SCH (09:09)
--- NOTE | 2020-07-15 11:33 | PN ---
[facility] Progress Note Note: Pt is a 30 y/o male admitted to rehab after completing detox for heroin and alcohol [facility] on 07/08/20 to 07/13/20. Pt had also been recently here in detox from 05/29/20 to 06/01/20 and referred to aftercare but states he immediately relapsed after discharge and came back to [facility] detox. Pt is now requesting Vivitrol MAT stating he has been on Methadone 4 to 5 yrs ago for 6 months and Suboxone till "2019"(see [facility] below for Suboxone history). Pt stated he was connected to [facility] with provider Taylor Humphrey NP on [place], [place].Pt states he wants to try something different since he has tried suboxone and methadone and was not successful in remaining sober. Pt states that he has read extensively about Vivitrol and knows he has to wait for at least 10 - 14 days before receiving naltrexone. This report was requested by: Dolores Nielson | Reference #: [id number] You have not added a ELENA number. Keeping your ELENA number(s) up to date on the My ELENA Numbers page will enable the separation of your prescriptions from others in the search results. Others' Prescriptions Patient Name: Norm HuertaBirth Date: 1990 Address: [address] [place] [id number]: Male Rx Written Rx Dispensed Drug Quantity Days Supply Prescriber Name Payment Method Dispenser 10/17/2019 10/17/2019 buprenorphine-naloxone 4-1 mg sl film 60 30 Wil Brown Medicaid [facility] Patient Name: Alec HuertaBirth Date: 1990 [address] [place] [address]Ojd: Male Rx Written Rx Dispensed Drug Quantity Days Supply Prescriber Name Payment Method Dispenser 06/15/2020 06/15/2020 buprenorphine-naloxone 8-2 mg sl film 60 30 Taylor Humphrey CLAIMS ACCOUNT SPECIALIST [facility] 04/26/2020 04/26/2020 buprenorphine-naloxone 8-2 mg sl film 60 30 Yamel Avalos NP [facility] 03/08/2020 03/08/2020 buprenorphine-naloxone 8-2 mg sl film 60 30 Yamel Avalos NP [facility] 02/03/2020 02/03/2020 buprenorphine-naloxone 8-2 mg sl film 60 30 Yamel Avalos CLAIMS ACCOUNT SPECIALIST [facility] 12/31/2019 12/31/2019 buprenorphine-naloxone 8-2 mg sl film 60 30 Taylor Humphrey NP [facility] 12/01/2019 12/01/2019 buprenorphine-naloxone 8-2 mg sl film 60 30 Taylor Humphrey NP [facility] 10/28/2019 10/28/2019 buprenorphine-naloxone 8-2 mg sl film 60 30 Kedar Hickey [facility] 09/17/2019 09/22/2019 buprenorphine-naloxone 8-2 mg sl film 60 30 Taylor Humphrey NP [facility] 08/22/2019 08/25/2019 buprenorphine-naloxone 8-2 mg sl film 60 30 Taylor Humphrey NP [facility] 08/08/2019 08/11/2019 buprenorphine-naloxone 8-2 mg sl film 30 15 Taylor Humphrey NP [facility] 07/28/2019 07/28/2019 buprenorphine-naloxone 8-2 mg sl film 30 15 KarellatishaAlec [facility] * - Drugs marked with an asterisk are compound drugs. If the compound drug is made up of more than one controlled substance, then each controlled substance will be a separate row in the table. Click the Report Suspicious Activity button to report information related to controlled substance suspicious activity to the [place] [employer]. Click the Send Questions/Comments button to send questions about this report to the [place] [employer], or call . Vital Signs (72 hours) 07/13/20 07/14/20 07/14/20 20:35 06:10 12:27 Temperature 98.0 F Pulse Rate 56 L Respiratory 18 Rate Blood Pressure 109/73 O2 Sat by Pulse 96 98 97 Oximetry (%) 07/14/20 07/15/20 07/15/20 20:32 06:24 15:11 Temperature 97.8 F Pulse Rate 73 Respiratory 18 Rate Blood Pressure 126/76 O2 Sat by Pulse 97 94 L 97 Oximetry (%) Laboratory Tests 07/14/20 13:10 WBC 6.4 RBC 4.49 Hgb 12.6 Hct 38.4 D MCV 85.5 MCH 28.0 MCHC 32.8 RDW 14.1 Plt Count 194 MPV 7.7 Anemia resolved from recent last admission. Alert o x 3 nad, no resp difficulty oob ambulating with steady gait MSK:Active FROM, all limbs, no pedal edema Skin:intact Rehab pt Requesting Vivitrol D/w pt to follow up with his Counselor to arrange for CD aftercare and where to continue Vivitrol if started. Will follow up with pt for evaluation of possible Vivitrol MAT. Increase po fluids
[2020-07-15] MEDS: METHOCARBAMOL 500 MG TABLET PO PRN (13:16)
[2020-07-15] MEDS: DIVALPROEX SODIUM 500 MG TABLET E.C. PO SCH (21:14)
[2020-07-15] MEDS: MELATONIN 5 MG TABLETS PO SCH (21:14)
[2020-07-15] MEDS: THIAMINE HCL 100 MG TABLET (FP) PO SCH (21:15)
[2020-07-15] MEDS: SUVOREXANT 10 MG TABLET PO PRN (21:16)
[2020-07-16] MEDS: METHOCARBAMOL 500 MG TABLET PO PRN ×2 (06:33→21:33)
[2020-07-16] MEDS: GABAPENTIN 300 MG CAPSULE PO SCH ×3 (06:33→21:32)
[2020-07-16] MEDS: hydrOXYzine PAMOATE 25 MG CAPSULE (FP) PO PRN (06:33)
[2020-07-16] MEDS: DIVALPROEX SODIUM 250 MG TABLET E.C. PO SCH (09:10)
[2020-07-16] MEDS: NICOTINE 7 MG/24 HOURS TOPICAL PATCH TD SCH (09:11)
[2020-07-16] MEDS: PRENATAL VITAMINS W/ FOLIC ACID TABLET (FP) PO SCH (09:11)
[2020-07-16] MEDS: DIVALPROEX SODIUM 500 MG TABLET E.C. PO SCH (21:32)
[2020-07-16] MEDS: MELATONIN 5 MG TABLETS PO SCH (21:33)
[2020-07-16] MEDS: THIAMINE HCL 100 MG TABLET (FP) PO SCH (21:33)
[2020-07-16] MEDS: SUVOREXANT 10 MG TABLET PO PRN (21:34)
[2020-07-17] MEDS: METHOCARBAMOL 500 MG TABLET PO PRN ×2 (06:35→21:38)
[2020-07-17] MEDS: GABAPENTIN 300 MG CAPSULE PO SCH ×3 (06:35→21:36)
[2020-07-17] MEDS: hydrOXYzine PAMOATE 25 MG CAPSULE (FP) PO PRN ×3 (06:35→14:29)
[2020-07-17] MEDS: NICOTINE 7 MG/24 HOURS TOPICAL PATCH TD SCH (10:09)
[2020-07-17] MEDS: PRENATAL VITAMINS W/ FOLIC ACID TABLET (FP) PO SCH (10:09)
[2020-07-17] MEDS: DIVALPROEX SODIUM 250 MG TABLET E.C. PO SCH (10:09)
[2020-07-17] MEDS: ACETAMINOPHEN 325 MG TABLET (FP) PO PRN (10:10)
--- NOTE | 2020-07-17 16:11 | PN ---
S Progress Note Note: Psychiatry Attending's note : Called by nurse Adrianna Moeller. Reason : renewal of suvorexant. Chart reviewed. ASSISTANT BOILER OPERATOR Adrianna Jenkins's note (07/14/20) : appreciated. Medication is confirmed. Consent validated. Belsomra 10 mg po hs prn. Resumed as per orders.
[2020-07-17] MEDS: SUVOREXANT 10 MG TABLET PO PRN (21:35)
[2020-07-17] MEDS: THIAMINE HCL 100 MG TABLET (FP) PO SCH (21:36)
[2020-07-17] MEDS: MELATONIN 5 MG TABLETS PO SCH (21:36)
[2020-07-17] MEDS: DIVALPROEX SODIUM 500 MG TABLET E.C. PO SCH (21:36)
[2020-07-18] MEDS: GABAPENTIN 300 MG CAPSULE PO SCH ×3 (06:25→21:47)
[2020-07-18] MEDS: hydrOXYzine PAMOATE 25 MG CAPSULE (FP) PO PRN ×2 (06:25→21:48)
[2020-07-18] MEDS: PRENATAL VITAMINS W/ FOLIC ACID TABLET (FP) PO SCH (09:29)
[2020-07-18] MEDS: NICOTINE 7 MG/24 HOURS TOPICAL PATCH TD SCH (09:29)
[2020-07-18] MEDS: DIVALPROEX SODIUM 250 MG TABLET E.C. PO SCH (09:29)
[2020-07-18] MEDS: IBUPROFEN 400 MG TABLET (FP) PO PRN (09:30)
[2020-07-18] MEDS: METHOCARBAMOL 500 MG TABLET PO PRN (13:26)
[2020-07-18] MEDS: THIAMINE HCL 100 MG TABLET (FP) PO SCH (21:47)
[2020-07-18] MEDS: DIVALPROEX SODIUM 500 MG TABLET E.C. PO SCH (21:48)
[2020-07-18] MEDS: SUVOREXANT 10 MG TABLET PO PRN (21:50)
[2020-07-18] MEDS: MELATONIN 5 MG TABLETS PO SCH (21:51)
[2020-07-19] MEDS: GABAPENTIN 300 MG CAPSULE PO SCH ×3 (06:08→21:25)
[2020-07-19] MEDS: DIVALPROEX SODIUM 250 MG TABLET E.C. PO SCH (10:00)
[2020-07-19] MEDS: PRENATAL VITAMINS W/ FOLIC ACID TABLET (FP) PO SCH (10:00)
[2020-07-19] MEDS: NICOTINE 7 MG/24 HOURS TOPICAL PATCH TD SCH (10:00)
[2020-07-19] MEDS: METHOCARBAMOL 500 MG TABLET PO PRN ×2 (10:01→21:27)
[2020-07-19] MEDS: ACETAMINOPHEN 325 MG TABLET (FP) PO PRN (10:01)
[2020-07-19] MEDS: MELATONIN 5 MG TABLETS PO SCH (21:25)
[2020-07-19] MEDS: THIAMINE HCL 100 MG TABLET (FP) PO SCH (21:25)
[2020-07-19] MEDS: DIVALPROEX SODIUM 500 MG TABLET E.C. PO SCH (21:25)
[2020-07-19] MEDS: SUVOREXANT 10 MG TABLET PO PRN (21:27)
[2020-07-20] MEDS: GABAPENTIN 300 MG CAPSULE PO SCH ×3 (06:38→21:28)
[2020-07-20] MEDS: ACETAMINOPHEN 325 MG TABLET (FP) PO PRN ×2 (06:39→13:54)
[2020-07-20] MEDS: hydrOXYzine PAMOATE 25 MG CAPSULE (FP) PO PRN ×2 (09:16→21:28)
[2020-07-20] MEDS: PRENATAL VITAMINS W/ FOLIC ACID TABLET (FP) PO SCH (09:16)
[2020-07-20] MEDS: DIVALPROEX SODIUM 250 MG TABLET E.C. PO SCH (09:16)
[2020-07-20] MEDS: NICOTINE 7 MG/24 HOURS TOPICAL PATCH TD SCH (09:18)
[2020-07-20] MEDS: MELATONIN 5 MG TABLETS PO SCH (21:28)
[2020-07-20] MEDS: SUVOREXANT 10 MG TABLET PO PRN (21:28)
[2020-07-20] MEDS: METHOCARBAMOL 500 MG TABLET PO PRN (21:28)
[2020-07-20] MEDS: DIVALPROEX SODIUM 500 MG TABLET E.C. PO SCH (21:28)
[2020-07-20] MEDS: THIAMINE HCL 100 MG TABLET (FP) PO SCH (21:28)
[2020-07-21] MEDS: GABAPENTIN 300 MG CAPSULE PO SCH ×3 (06:13→21:28)
[2020-07-21] MEDS: PRENATAL VITAMINS W/ FOLIC ACID TABLET (FP) PO SCH (10:48)
[2020-07-21] MEDS: NICOTINE 7 MG/24 HOURS TOPICAL PATCH TD SCH (10:48)
[2020-07-21] MEDS: DIVALPROEX SODIUM 250 MG TABLET E.C. PO SCH (10:48)
[2020-07-21] MEDS: hydrOXYzine PAMOATE 25 MG CAPSULE (FP) PO PRN ×2 (13:14→21:28)
[2020-07-21] MEDS: DIVALPROEX SODIUM 500 MG TABLET E.C. PO SCH (21:28)
[2020-07-21] MEDS: SUVOREXANT 10 MG TABLET PO PRN (21:28)
[2020-07-21] MEDS: METHOCARBAMOL 500 MG TABLET PO PRN (21:28)
[2020-07-21] MEDS: THIAMINE HCL 100 MG TABLET (FP) PO SCH (21:28)
[2020-07-21] MEDS: MELATONIN 5 MG TABLETS PO SCH (21:29)
[2020-07-22] MEDS: GABAPENTIN 300 MG CAPSULE PO SCH ×3 (06:28→21:39)
[2020-07-22] MEDS: METHOCARBAMOL 500 MG TABLET PO PRN (06:29)
[2020-07-22] MEDS: DIVALPROEX SODIUM 250 MG TABLET E.C. PO SCH (10:16)
[2020-07-22] MEDS: IBUPROFEN 400 MG TABLET (FP) PO PRN (10:16)
[2020-07-22] MEDS: PRENATAL VITAMINS W/ FOLIC ACID TABLET (FP) PO SCH (10:16)
[2020-07-22] MEDS: NICOTINE 7 MG/24 HOURS TOPICAL PATCH TD SCH (10:17)
--- NOTE | 2020-07-22 11:03 | PN ---
[facility] COWS - Scale Resting Pulse: 0= [place] 80 or Below Sweatin= Chills/Flushing Restless Observation: 0= Sits Still Pupil Size: 0= Normal to Room Light Bone or Joint Aches: 0= None Runny Nose/ Eye Tearin= Constantly Teary/Runny GI Upset > 30mins: 0= None Tremor Observation of Outstretched Hands: 0= None Yawning Observation: 0= None Anxiety or Irritability: 1=Feels Anxious/Irritable Goose Flesh Skin: 3=Piloe[place] COWS Score: 9 [facility] Progress Note (SOAP) Subjective: Pt c/o anxiety, irritability, and insomnia. Pt wants to get back on suboxone. Reports he has not given himself a chance to really be sober and be comfortable with suboxone while on the street. Pt is not quite decided wether to switch to Vivitrol as he had earlier mentioned. Pt is actively/currently in a suboxone MAT with Suboxone 8mg/2mg sl BID and wants to continue with Suboxone because "I still have things to figure out. Requesting to stay on 8mg/2mg sl daily as 16mg mad me too tired". I'm not ready yet for the Vivitrol".(See previous note and I-STOP suboxone hx). Reports he is due for Suboxone refill with his primary and will follow up with them after discharge. Pt reports he currently has primary care/suboxone prescribers and psych care prescribers at [facility]. However, pt has been referred to [facility] program for CD aftercare counselling and groups. Objective: Vital Signs - 24 hr 07/21/20 07/21/20 07/22/20 14:15 20:25 07:23 Temperature 97.5 F L Pulse Rate 61 Respiratory 18 Rate Blood Pressure 114/66 O2 Sat by Pulse 98 95 95 Oximetry (%) Alert o x 3 nad oob ambulating with steady gait Assessment: Suboxone MAT pt s/p detox Plan: UDS today D/w pt will restart with Suboxone 4mg/1mg sl daily then 8mg/2mg sl daily.
[2020-07-22] MEDS: ACETAMINOPHEN 325 MG TABLET (FP) PO PRN (14:24)
[2020-07-22] MEDS: BUPRENORPHINE/NALOXONE 4 MG/1 MG FILM PACKET SL SCH (14:24)
[2020-07-22] MEDS: DIVALPROEX SODIUM 500 MG TABLET E.C. PO SCH (21:39)
[2020-07-22] MEDS: THIAMINE HCL 100 MG TABLET (FP) PO SCH (21:39)
[2020-07-22] MEDS: MELATONIN 5 MG TABLETS PO SCH (21:40)
[2020-07-22] MEDS: SUVOREXANT 10 MG TABLET PO PRN (21:41)
[2020-07-23] MEDS: GABAPENTIN 300 MG CAPSULE PO SCH ×3 (06:26→21:55)
[2020-07-23] MEDS: BUPRENORPHINE/NALOXONE 4 MG/1 MG FILM PACKET SL SCH (09:50)
[2020-07-23] MEDS: NICOTINE 7 MG/24 HOURS TOPICAL PATCH TD SCH (09:50)
[2020-07-23] MEDS: DIVALPROEX SODIUM 250 MG TABLET E.C. PO SCH (09:51)
[2020-07-23] MEDS: PRENATAL VITAMINS W/ FOLIC ACID TABLET (FP) PO SCH (09:51)
[2020-07-23] MEDS: METHOCARBAMOL 500 MG TABLET PO PRN ×2 (09:53→21:55)
[2020-07-23] MEDS: hydrOXYzine PAMOATE 25 MG CAPSULE (FP) PO PRN ×2 (14:19→21:55)
[2020-07-23] MEDS: THIAMINE HCL 100 MG TABLET (FP) PO SCH (21:55)
[2020-07-23] MEDS: MELATONIN 5 MG TABLETS PO SCH (21:55)
[2020-07-23] MEDS: DIVALPROEX SODIUM 500 MG TABLET E.C. PO SCH (21:55)
[2020-07-23] MEDS: SUVOREXANT 10 MG TABLET PO PRN (21:56)
[2020-07-24] MEDS: GABAPENTIN 300 MG CAPSULE PO SCH ×2 (06:05→14:43)
[2020-07-24] MEDS: NICOTINE 7 MG/24 HOURS TOPICAL PATCH TD SCH (10:06)
[2020-07-24] MEDS: PRENATAL VITAMINS W/ FOLIC ACID TABLET (FP) PO SCH (10:06)
[2020-07-24] MEDS: BUPRENORPHINE/NALOXONE 4 MG/1 MG FILM PACKET SL SCH (10:06)
[2020-07-24] MEDS: hydrOXYzine PAMOATE 25 MG CAPSULE (FP) PO PRN (10:07)
[2020-07-24] MEDS: DIVALPROEX SODIUM 250 MG TABLET E.C. PO SCH (10:07)
[2020-07-24 20:18] VITALS: BP 118/69; PULSE 80; TEMP 97.7
--- NOTE | 2020-07-25 17:28 | PN ---
[facility] Progress Note Note: patient did not want to complete treatment maury like o leave,stated feel much,better,had a safe place to stay, address the issue about suboxone,he said it is ok ,he can walk in to see his doctor on Sunday with no problem , has neurontin 600 mgs po tid at home, left the unit in stable codition follow up with out patient program as arrangement
--- NOTE | 2020-07-25 17:42 | DS ---
[facility] Rehab Discharge Summary - [facility] Rehab Discharge Summary Admission Date: 07/13/20 Discharge Date: 07/24/20 - History Pertinent Past History: heroin dependence cocaine dependence alcohol dependence depression history of suboxone maintenance in the past - Discharge Physical Exam Vital Signs: Vital Signs Temperature 97.7 F 07/24/20 16:45 Pulse Rate 80 07/24/20 16:45 Respiratory Rate 18 07/24/20 16:45 Blood Pressure 118/69 07/24/20 16:45 O2 Sat by Pulse Oximetry (%) 96 07/24/20 16:45 Pertinent Admission Physical Exam Findings: alert,oriented x 3 ambulation on the unit vital signs stable - Treatment Discharge Condition: Discharge condition good, Rehabilitated safely, Responded well, Outpatient referral accepted Hospital Course: patient responded well in rehab feel much better stable to be discharged follow up with out patient program by counselor and previous documetation by PAYROLL SECRETARY Dolores Chen - Medication Discharge Medications: Ambulatory Orders Gabapentin 600 mg PO TID 05/29/20 Mirtazapine [Remeron -] 15 mg PO HS #30 tablet 06/01/20 Potassium Chloride [K-Dur -] 20 meq PO DAILY 5 Days #5 tablet.er 06/01/20 Naloxone HCl [Narcan] 4 mg NS ASDIR PRN #1 spray 07/12/20 Divalproex [Depakote -] 500 mg PO BID 07/13/20 Ferrous Sulfate [Feosol] 325 mg PO DAILY 07/13/20 - Medication-Assisted Treatment (MAT) Medication-Assisted Treatment (MAT): Yes Medication Prescribed: Suboxone MAT Follow-up Referral: prescribers in [facility] - Discharge Instructions Diet, activity, other medical instructions: Diet:regular diet Activity: as tolerated Other medical instructions: - Diagnosis (1) Depression Status: Acute (2) Alcohol use disorder Status: Acute (3) Depression Status: Acute (4) Nicotine dependence Status: Acute Qualifiers: Nicotine product type: cigarettes Substance use status: in withdrawal Qualified Code(s): F17.213 - Nicotine dependence, cigarettes, with withdrawal (5) Opioid dependence Status: Acute (6) Sedative, hypnotic or anxiolytic dependence, uncomplicated Status: Acute (7) Insomnia Status: Chronic - Follow-up Referral Minutes to complete discharge: 35 - AMA Did Patient Leave Against Medical Advice: No Additional Comments: alert,oriented x 3 ambulation on the unit lung clear on auscultation bilaterally abdomen soft,no distension,no pain no selling of the leg stable for discharge today follow up with after care program as arrangement [facility] total time spending on discharge 35 minutes
== END 2020-07-24 16:59 | disposition home or self-care (01) | DRG 772 ==
LOC: YASAS 12:36 → Y5N 12:37
PROVIDERS: ADMIT Allergy & Immunology; ATTEND Allergy & Immunology
PROC: HZ42ZZZ Group Counseling for Substance Abuse Treatment, Cognitive-Behavioral (ICD-10-PCS; principal; 2020-07-13)
DX: F10.20 Alcohol dependence, uncomplicated (principal); F11.20 Opioid dependence, uncomplicated; F14.20 Cocaine dependence, uncomplicated; F13.20 Sedative, hypnotic or anxiolytic dependence, uncomplicated; F17.210 Nicotine dependence, cigarettes, uncomplicated; F39 Unspecified mood [affective] disorder; Z87.01 Personal history of pneumonia (recurrent); Z91.018 Allergy to other foods
CPT/HCPCS: 36415; 85027

== ENCOUNTER 2021-04-19 12:43 | Inpatient (IN) | payer OTHER ==
[2021-04-19 13:54] VITALS: BMI 22.8
[2021-04-19] MEDS ORDERED: BISMUTH SUBSALICYLATE 524 MG/30 ML PO PRN (13:55)
[2021-04-19] MEDS ORDERED: MENTHOL/PHENOL 1 EACH UD MM PRN (13:55)
[2021-04-19] MEDS ORDERED: diazePAM 5 MG TABLET PO PRN (13:55)
[2021-04-19] MEDS ORDERED: MAGNESIUM HYDROX 2400MG/30ML ORAL SUSPENSION 30 ML CUP PO PRN (13:55)
[2021-04-19] MEDS ORDERED: ACETAMINOPHEN 325 MG TABLET (FP) PO PRN ×2 (13:55)
[2021-04-19] MEDS ORDERED: IBUPROFEN 400 MG TABLET (FP) PO PRN (13:55)
[2021-04-19] MEDS ORDERED: ONDANSETRON *ODT* 4 MG TABLET SL PRN (13:55)
[2021-04-19] MEDS ORDERED: MAGNESIUM CITRATE 300 ML BOTTLE PO PRN (13:55)
[2021-04-19] MEDS ORDERED: MAG HYDROX/AL HYDROX/SIMETH 30 ML UNIT-DOSE CUP PO PRN (13:55)
[2021-04-19] MEDS ORDERED: NICOTINE POLACRILEX 2 MG GUM BUC PRN (13:55)
[2021-04-19 15:22] LABS: CALCIUM 9.2 mg/dL (8.5-10.1)
[2021-04-19 15:23] LABS: ALBUMIN 3.3 g/dl (3.4-5.0); BLOOD UREA NITROGEN 10.4 mg/dL (7-18)
[2021-04-19 15:25] LABS: HEMATOCRIT 34.3 % (35.4-49); HEMOGLOBIN 11.8 GM/dL (11.7-16.9); MCH 29.4 pg (25.7-33.7); MCHC 34.5 g/dl (32.0-35.9); MEAN CELL VOLUME 85.2 fl (80-96); MEAN PLT VOLUME 7.7 fl (7.5-11.1); PLATELET COUNT 141 K/MM3 (134-434); RBC 4.02 M/mm3 (4.00-5.60); RDW 14.1 % (11.9-15.9); WHITE BLOOD COUNT 4.6 K/mm3 (4.0-10.0)
[2021-04-19 15:26] LABS: CREATININE 0.9 mg/dL (0.55-1.3)
[2021-04-19 15:28] LABS: TOT PROT 7.6 g/dl (6.4-8.2)
[2021-04-19] MEDS: hydrOXYzine PAMOATE 25 MG CAPSULE (FP) PO SCH ×3 (15:42→22:17)
[2021-04-19] MEDS: GABAPENTIN 300 MG CAPSULE PO SCH ×2 (15:42→22:17)
[2021-04-19] MEDS: NICOTINE 14 MG/24 HOURS TOPICAL PATCH TD SCH (15:42)
[2021-04-19] MEDS: PRENATAL VITAMINS W/ FOLIC ACID TABLET (FP) PO SCH (15:43)
[2021-04-19] MEDS: METHOCARBAMOL 500 MG TABLET PO PRN (17:49)
[2021-04-19] MEDS: diazePAM 5 MG TABLET PO SCH ×2 (17:49→22:17)
[2021-04-19] MEDS: BACITRACIN 0.9 GM PACKET TP SCH (22:17)
[2021-04-19] MEDS: MELATONIN 5 MG TABLETS PO SCH (22:17)
[2021-04-19] MEDS: THIAMINE HCL 100 MG TABLET (FP) PO SCH (22:17)
[2021-04-19] MEDS: CEFUROXIME AXETIL 500 MG TABLET PO SCH (23:57)
[2021-04-20] MEDS: GABAPENTIN 300 MG CAPSULE PO SCH ×3 (05:08→22:47)
[2021-04-20] MEDS: hydrOXYzine PAMOATE 25 MG CAPSULE (FP) PO SCH ×5 (05:08→22:48)
[2021-04-20] MEDS: diazePAM 5 MG TABLET PO SCH ×4 (05:08→22:47)
[2021-04-20] MEDS ORDERED: BUPRENORPHINE/NALOXONE 8 MG/2 MG FILM PACKET SL SCH (10:00)
[2021-04-20] MEDS: METHOCARBAMOL 500 MG TABLET PO PRN (10:11)
[2021-04-20] MEDS: CEFUROXIME AXETIL 500 MG TABLET PO SCH ×2 (10:11→22:46)
[2021-04-20] MEDS: PRENATAL VITAMINS W/ FOLIC ACID TABLET (FP) PO SCH (10:11)
[2021-04-20] MEDS: BACITRACIN 0.9 GM PACKET TP SCH ×2 (10:12→22:46)
[2021-04-20] MEDS: NICOTINE 14 MG/24 HOURS TOPICAL PATCH TD SCH (10:12)
[2021-04-20 11:41] LABS: HIV INTERPRETATION NEGATIVE (NEGATIVE)
[2021-04-20] MEDS ORDERED: cloNIDine HCL 0.1 MG TABLET PO PRN (13:03)
[2021-04-20] MEDS ORDERED: METHADONE HCL 10 MG TABLET (FOR DETOX USE ONLY) PO ONE (13:30)
[2021-04-20] MEDS ORDERED: SUVOREXANT 10 MG TABLET PO PRN (22:00)
[2021-04-20] MEDS: THIAMINE HCL 100 MG TABLET (FP) PO SCH (22:46)
[2021-04-20] MEDS: SUVOREXANT 10 MG TABLET PO PRN (22:46)
[2021-04-20] MEDS: MELATONIN 5 MG TABLETS PO SCH (22:47)
[2021-04-21] MEDS: hydrOXYzine PAMOATE 25 MG CAPSULE (FP) PO SCH ×5 (05:13→22:18)
[2021-04-21] MEDS: GABAPENTIN 300 MG CAPSULE PO SCH ×3 (05:13→22:14)
[2021-04-21] MEDS: diazePAM 5 MG TABLET PO SCH ×3 (05:14→22:15)
[2021-04-21] MEDS ORDERED: METHADONE HCL 5 MG TABLET (FOR DETOX USE ONLY) ONE (09:34)
[2021-04-21] MEDS ORDERED: METHADONE HCL 10 MG TABLET (FOR DETOX USE ONLY) ONE (09:35)
[2021-04-21] MEDS ORDERED: METHADONE (DETOX) 20 MG, METHADONE (DETOX) 5 MG PO ONE (10:00)
[2021-04-21] MEDS: CEFUROXIME AXETIL 500 MG TABLET PO SCH ×2 (10:17→22:15)
[2021-04-21] MEDS: BACITRACIN 0.9 GM PACKET TP SCH ×2 (10:17→22:14)
[2021-04-21] MEDS: PRENATAL VITAMINS W/ FOLIC ACID TABLET (FP) PO SCH (10:19)
[2021-04-21] MEDS: NICOTINE 14 MG/24 HOURS TOPICAL PATCH TD SCH (10:19)
[2021-04-21] MEDS: METHOCARBAMOL 500 MG TABLET PO PRN (10:21)
[2021-04-21] MEDS: SUVOREXANT 10 MG TABLET PO PRN (22:13)
[2021-04-21] MEDS: MELATONIN 5 MG TABLETS PO SCH (22:14)
[2021-04-21] MEDS: THIAMINE HCL 100 MG TABLET (FP) PO SCH (22:14)
[2021-04-22] MEDS: diazePAM 5 MG TABLET PO SCH ×2 (05:59→18:21)
[2021-04-22] MEDS: GABAPENTIN 300 MG CAPSULE PO SCH ×3 (05:59→22:20)
[2021-04-22] MEDS: hydrOXYzine PAMOATE 25 MG CAPSULE (FP) PO SCH ×5 (05:59→22:52)
[2021-04-22] MEDS ORDERED: METHADONE HCL 10 MG TABLET (FOR DETOX USE ONLY) PO ONE (10:00)
[2021-04-22] MEDS: PRENATAL VITAMINS W/ FOLIC ACID TABLET (FP) PO SCH (10:30)
[2021-04-22] MEDS: NICOTINE 14 MG/24 HOURS TOPICAL PATCH TD SCH (10:30)
[2021-04-22] MEDS: BACITRACIN 0.9 GM PACKET TP SCH ×2 (10:30→22:20)
[2021-04-22] MEDS: METHOCARBAMOL 500 MG TABLET PO PRN (10:32)
[2021-04-22] MEDS: CEFUROXIME AXETIL 500 MG TABLET PO SCH ×2 (15:31→22:24)
[2021-04-22] MEDS: THIAMINE HCL 100 MG TABLET (FP) PO SCH (22:21)
[2021-04-22] MEDS: MELATONIN 5 MG TABLETS PO SCH (22:21)
[2021-04-22] MEDS: SUVOREXANT 10 MG TABLET PO PRN (22:24)
[2021-04-23] MEDS: hydrOXYzine PAMOATE 25 MG CAPSULE (FP) PO SCH ×5 (05:34→22:17)
[2021-04-23] MEDS: GABAPENTIN 300 MG CAPSULE PO SCH ×3 (05:34→22:17)
[2021-04-23] MEDS ORDERED: diazePAM 5 MG TABLET PO ONE (06:00)
[2021-04-23] MEDS ORDERED: METHADONE HCL 5 MG TABLET (FOR DETOX USE ONLY) ONE (09:12)
[2021-04-23] MEDS ORDERED: METHADONE HCL 10 MG TABLET (FOR DETOX USE ONLY) ONE (09:13)
[2021-04-23] MEDS ORDERED: METHADONE (DETOX) 10 MG, METHADONE (DETOX) 5 MG PO ONE (10:00)
[2021-04-23] MEDS: CEFUROXIME AXETIL 500 MG TABLET PO SCH ×2 (10:14→22:17)
[2021-04-23] MEDS: PRENATAL VITAMINS W/ FOLIC ACID TABLET (FP) PO SCH (10:14)
[2021-04-23] MEDS: BACITRACIN 0.9 GM PACKET TP SCH ×2 (10:15→22:17)
[2021-04-23] MEDS: NICOTINE 14 MG/24 HOURS TOPICAL PATCH TD SCH (10:15)
[2021-04-23] MEDS: METHOCARBAMOL 500 MG TABLET PO PRN (17:59)
[2021-04-23] MEDS: THIAMINE HCL 100 MG TABLET (FP) PO SCH (22:17)
[2021-04-23] MEDS: MELATONIN 5 MG TABLETS PO SCH (22:17)
[2021-04-24] MEDS: hydrOXYzine PAMOATE 25 MG CAPSULE (FP) PO SCH ×5 (06:23→22:12)
[2021-04-24] MEDS: GABAPENTIN 300 MG CAPSULE PO SCH ×3 (06:23→22:13)
[2021-04-24] MEDS ORDERED: METHADONE HCL 10 MG TABLET (FOR DETOX USE ONLY) PO ONE (10:00)
[2021-04-24] MEDS ORDERED: MELATONIN 5 MG TABLETS PO SCH (10:01)
[2021-04-24] MEDS: CEFUROXIME AXETIL 500 MG TABLET PO SCH (10:16)
[2021-04-24] MEDS: PRENATAL VITAMINS W/ FOLIC ACID TABLET (FP) PO SCH (10:16)
[2021-04-24] MEDS: METHOCARBAMOL 500 MG TABLET PO PRN ×2 (10:16→22:14)
[2021-04-24] MEDS: BACITRACIN 0.9 GM PACKET TP SCH ×2 (10:16→22:13)
[2021-04-24] MEDS: NICOTINE 14 MG/24 HOURS TOPICAL PATCH TD SCH (10:16)
[2021-04-24] MEDS: THIAMINE HCL 100 MG TABLET (FP) PO SCH (22:13)
[2021-04-25] MEDS ORDERED: METHADONE HCL 5 MG TABLET (FOR DETOX USE ONLY) PO ONE (06:00)
[2021-04-25] MEDS: hydrOXYzine PAMOATE 25 MG CAPSULE (FP) PO SCH ×2 (06:15→10:04)
[2021-04-25] MEDS: GABAPENTIN 300 MG CAPSULE PO SCH ×2 (06:15→13:50)
[2021-04-25] MEDS: METHOCARBAMOL 500 MG TABLET PO PRN (06:16)
[2021-04-25] MEDS: BACITRACIN 0.9 GM PACKET TP SCH (10:04)
[2021-04-25] MEDS: NICOTINE 14 MG/24 HOURS TOPICAL PATCH TD SCH (10:04)
[2021-04-25] MEDS: PRENATAL VITAMINS W/ FOLIC ACID TABLET (FP) PO SCH (10:04)
[2021-04-25 17:07] VITALS: BP 124/77; PULSE 65; TEMP 97.3
== END 2021-04-25 17:29 | disposition other institution (70) | DRG 773 ==
LOC: YASAS 12:43 → Y6N 14:11
PROVIDERS: ADMIT Allergy & Immunology; ATTEND Allergy & Immunology
PROC: HZ2ZZZZ Detoxification Services for Substance Abuse Treatment (ICD-10-PCS; principal; 2021-04-19)
DX: F10.230 Alcohol dependence with withdrawal, uncomplicated (principal); F11.23 Opioid dependence with withdrawal; F13.230 Sedative, hypnotic or anxiolytic dependence with withdrawal, uncomplicated; F14.10 Cocaine abuse, uncomplicated; F12.10 Cannabis abuse, uncomplicated; F17.213 Nicotine dependence, cigarettes, with withdrawal; F19.282 Other psychoactive substance dependence with psychoactive substance-induced sleep disorder; F19.280 Other psychoactive substance dependence with psychoactive substance-induced anxiety disorder; F31.9 Bipolar disorder, unspecified; F42.9 Obsessive-compulsive disorder, unspecified; K21.9 Gastro-esophageal reflux disease without esophagitis; D64.9 Anemia, unspecified; L03.113 Cellulitis of right upper limb; B18.2 Chronic viral hepatitis C; G40.89 Other seizures; R63.4 Abnormal weight loss; Z68.22 Body mass index [BMI] 22.0-22.9, adult; Z86.79 Personal history of other diseases of the circulatory system; Z86.69 Personal history of other diseases of the nervous system and sense organs
CPT/HCPCS: 36415; 80053; 85027; 86780; 87389; 87522; C9803; U0003; U0005

== ENCOUNTER 2021-04-25 18:34 | Inpatient (IN) | payer OTHER ==
[2021-04-25] MEDS ORDERED: MAGNESIUM CITRATE 300 ML BOTTLE PO PRN (18:57)
[2021-04-25] MEDS ORDERED: NICOTINE POLACRILEX 2 MG GUM BUC PRN (18:57)
[2021-04-25] MEDS ORDERED: P-EPHED 60MG/TRIPROLIDI 2.5MG TABLET PO PRN (18:57)
[2021-04-25] MEDS ORDERED: LOPERAMIDE HCL 2 MG CAPSULE PO PRN (18:57)
[2021-04-25] MEDS ORDERED: guaiFENesin 200 MG/10 ML 10 ML UNIT-DOSE CUPS PO PRN (18:57)
[2021-04-25] MEDS ORDERED: MENTHOL/PHENOL 1 EACH UD MM PRN (18:57)
[2021-04-25] MEDS ORDERED: MAGNESIUM HYDROX 2400MG/30ML ORAL SUSPENSION 30 ML CUP PO PRN (18:57)
[2021-04-25] MEDS ORDERED: MAG HYDROX/AL HYDROX/SIMETH 30 ML UNIT-DOSE CUP PO PRN (18:57)
[2021-04-25] MEDS: MELATONIN 5 MG TABLETS PO SCH (21:57)
[2021-04-25] MEDS: hydrOXYzine PAMOATE 25 MG CAPSULE (FP) PO PRN (21:57)
[2021-04-25] MEDS: THIAMINE HCL 100 MG TABLET (FP) PO SCH (21:57)
[2021-04-26] MEDS: PRENATAL VITAMINS W/ FOLIC ACID TABLET (FP) PO SCH (10:31)
[2021-04-26] MEDS: hydrOXYzine PAMOATE 25 MG CAPSULE (FP) PO PRN (10:32)
[2021-04-26] MEDS ORDERED: ONDANSETRON *ODT* 4 MG TABLET SL PRN (11:23)
[2021-04-26] MEDS: METHOCARBAMOL 500 MG TABLET PO PRN ×2 (11:33→17:49)
[2021-04-26] MEDS: IBUPROFEN 400 MG TABLET (FP) PO PRN (11:33)
[2021-04-26] MEDS ORDERED: BUPRENORPHINE/NALOXONE 2 MG/0.5 MG FILM PACKET SL ONE (12:07)
[2021-04-26] MEDS ORDERED: SUVOREXANT 10 MG TABLET PO PRN (14:18)
[2021-04-26] MEDS ORDERED: MASKS NR ONE (14:49)
[2021-04-26] MEDS: hydrOXYzine PAMOATE 50 MG CAPSULE (FP) PO PRN ×2 (14:50→21:50)
[2021-04-26] MEDS: GABAPENTIN 300 MG CAPSULE PO SCH ×2 (14:50→21:50)
[2021-04-26] MEDS: THIAMINE HCL 100 MG TABLET (FP) PO SCH (21:49)
[2021-04-26] MEDS: SUVOREXANT 10 MG TABLET PO PRN (21:50)
[2021-04-27] MEDS: GABAPENTIN 300 MG CAPSULE PO SCH ×3 (07:09→21:12)
[2021-04-27] MEDS ORDERED: BUPRENORPHINE/NALOXONE 4 MG/1 MG FILM PACKET SL ONE ×2 (10:00→18:57)
[2021-04-27] MEDS: PRENATAL VITAMINS W/ FOLIC ACID TABLET (FP) PO SCH (10:33)
[2021-04-27] MEDS: METHOCARBAMOL 500 MG TABLET PO PRN ×2 (10:34→21:12)
[2021-04-27] MEDS: SUVOREXANT 10 MG TABLET PO PRN (21:11)
[2021-04-27] MEDS: THIAMINE HCL 100 MG TABLET (FP) PO SCH (21:12)
[2021-04-28] MEDS: GABAPENTIN 300 MG CAPSULE PO SCH ×3 (07:23→21:20)
[2021-04-28] MEDS: PRENATAL VITAMINS W/ FOLIC ACID TABLET (FP) PO SCH (10:18)
[2021-04-28] MEDS: METHOCARBAMOL 500 MG TABLET PO PRN ×2 (10:18→21:21)
[2021-04-28] MEDS: BUPRENORPHINE/NALOXONE 4 MG/1 MG FILM PACKET SL SCH ×2 (10:53→18:03)
[2021-04-28] MEDS: SUVOREXANT 10 MG TABLET PO PRN (21:20)
[2021-04-28] MEDS: THIAMINE HCL 100 MG TABLET (FP) PO SCH (21:21)
[2021-04-28] MEDS: hydrOXYzine PAMOATE 50 MG CAPSULE (FP) PO PRN (21:21)
[2021-04-29] MEDS: GABAPENTIN 300 MG CAPSULE PO SCH ×3 (07:05→21:12)
[2021-04-29] MEDS: METHOCARBAMOL 500 MG TABLET PO PRN ×2 (10:40→21:12)
[2021-04-29] MEDS: PRENATAL VITAMINS W/ FOLIC ACID TABLET (FP) PO SCH (10:40)
[2021-04-29] MEDS: BUPRENORPHINE/NALOXONE 8 MG/2 MG FILM PACKET SL SCH ×2 (10:40→18:38)
[2021-04-29] MEDS: THIAMINE HCL 100 MG TABLET (FP) PO SCH (21:12)
[2021-04-29] MEDS: hydrOXYzine PAMOATE 50 MG CAPSULE (FP) PO PRN (21:12)
[2021-04-29] MEDS: SUVOREXANT 10 MG TABLET PO PRN (21:12)
[2021-04-30] MEDS: GABAPENTIN 300 MG CAPSULE PO SCH ×3 (07:13→21:56)
[2021-04-30] MEDS: BUPRENORPHINE/NALOXONE 8 MG/2 MG FILM PACKET SL SCH ×2 (10:14→17:47)
[2021-04-30] MEDS: PRENATAL VITAMINS W/ FOLIC ACID TABLET (FP) PO SCH (10:14)
[2021-04-30] MEDS: METHOCARBAMOL 500 MG TABLET PO PRN (10:16)
[2021-04-30] MEDS: hydrOXYzine PAMOATE 50 MG CAPSULE (FP) PO PRN (10:16)
[2021-04-30] MEDS: THIAMINE HCL 100 MG TABLET (FP) PO SCH (21:57)
[2021-05-01] MEDS: GABAPENTIN 300 MG CAPSULE PO SCH ×3 (06:35→21:38)
[2021-05-01] MEDS: PRENATAL VITAMINS W/ FOLIC ACID TABLET (FP) PO SCH (10:20)
[2021-05-01] MEDS: hydrOXYzine PAMOATE 50 MG CAPSULE (FP) PO PRN (10:22)
[2021-05-01] MEDS: METHOCARBAMOL 500 MG TABLET PO PRN (10:22)
[2021-05-01] MEDS: BUPRENORPHINE/NALOXONE 8 MG/2 MG FILM PACKET SL SCH ×2 (10:22→17:45)
[2021-05-01] MEDS: THIAMINE HCL 100 MG TABLET (FP) PO SCH (21:38)
[2021-05-01] MEDS: SUVOREXANT 10 MG TABLET PO PRN (21:40)
[2021-05-02] MEDS: GABAPENTIN 300 MG CAPSULE PO SCH ×3 (06:56→21:27)
[2021-05-02] MEDS: PRENATAL VITAMINS W/ FOLIC ACID TABLET (FP) PO SCH (10:22)
[2021-05-02] MEDS: BUPRENORPHINE/NALOXONE 8 MG/2 MG FILM PACKET SL SCH ×2 (10:23→18:16)
[2021-05-02] MEDS: IBUPROFEN 400 MG TABLET (FP) PO PRN (10:25)
[2021-05-02] MEDS: METHOCARBAMOL 500 MG TABLET PO PRN ×2 (14:08→21:27)
[2021-05-02] MEDS: THIAMINE HCL 100 MG TABLET (FP) PO SCH (21:27)
[2021-05-02] MEDS: hydrOXYzine PAMOATE 50 MG CAPSULE (FP) PO PRN (21:27)
[2021-05-02] MEDS: SUVOREXANT 10 MG TABLET PO PRN (21:27)
[2021-05-03] MEDS: GABAPENTIN 300 MG CAPSULE PO SCH ×3 (06:39→21:05)
[2021-05-03] MEDS: BUPRENORPHINE/NALOXONE 8 MG/2 MG FILM PACKET SL SCH ×2 (10:33→18:09)
[2021-05-03] MEDS: PRENATAL VITAMINS W/ FOLIC ACID TABLET (FP) PO SCH (10:33)
[2021-05-03] MEDS: ACETAMINOPHEN 325 MG TABLET (FP) PO PRN (14:02)
[2021-05-03] MEDS: METHOCARBAMOL 500 MG TABLET PO PRN ×2 (14:02→21:08)
[2021-05-03] MEDS: THIAMINE HCL 100 MG TABLET (FP) PO SCH (21:05)
[2021-05-03] MEDS: MELATONIN 5 MG TABLETS PO SCH (21:06)
[2021-05-03] MEDS: SUVOREXANT 10 MG TABLET PO PRN (21:07)
[2021-05-04] MEDS: GABAPENTIN 300 MG CAPSULE PO SCH ×3 (06:28→21:14)
[2021-05-04] MEDS: PRENATAL VITAMINS W/ FOLIC ACID TABLET (FP) PO SCH (10:23)
[2021-05-04] MEDS: ACETAMINOPHEN 325 MG TABLET (FP) PO PRN (10:24)
[2021-05-04] MEDS: BUPRENORPHINE/NALOXONE 8 MG/2 MG FILM PACKET SL SCH ×2 (10:25→18:10)
[2021-05-04] MEDS: SUVOREXANT 10 MG TABLET PO PRN (21:13)
[2021-05-04] MEDS: hydrOXYzine PAMOATE 50 MG CAPSULE (FP) PO PRN (21:14)
[2021-05-04] MEDS: METHOCARBAMOL 500 MG TABLET PO PRN (21:14)
[2021-05-04] MEDS: THIAMINE HCL 100 MG TABLET (FP) PO SCH (21:14)
[2021-05-05] MEDS: GABAPENTIN 300 MG CAPSULE PO SCH ×3 (07:09→21:40)
[2021-05-05] MEDS: PRENATAL VITAMINS W/ FOLIC ACID TABLET (FP) PO SCH (10:28)
[2021-05-05] MEDS: BUPRENORPHINE/NALOXONE 8 MG/2 MG FILM PACKET SL SCH ×2 (10:28→18:04)
[2021-05-05] MEDS: IBUPROFEN 400 MG TABLET (FP) PO PRN (10:28)
[2021-05-05] MEDS: THIAMINE HCL 100 MG TABLET (FP) PO SCH (21:40)
[2021-05-06] MEDS: GABAPENTIN 300 MG CAPSULE PO SCH ×3 (07:01→21:32)
[2021-05-06] MEDS: PRENATAL VITAMINS W/ FOLIC ACID TABLET (FP) PO SCH (10:21)
[2021-05-06] MEDS: hydrOXYzine PAMOATE 50 MG CAPSULE (FP) PO PRN (10:22)
[2021-05-06] MEDS: METHOCARBAMOL 500 MG TABLET PO PRN (10:22)
[2021-05-06] MEDS: BUPRENORPHINE/NALOXONE 8 MG/2 MG FILM PACKET SL SCH ×2 (10:22→18:04)
[2021-05-06] MEDS: THIAMINE HCL 100 MG TABLET (FP) PO SCH (21:32)
[2021-05-06] MEDS: SUVOREXANT 10 MG TABLET PO PRN (21:33)
[2021-05-07] MEDS: GABAPENTIN 300 MG CAPSULE PO SCH ×3 (07:19→21:38)
[2021-05-07] MEDS: ACETAMINOPHEN 325 MG TABLET (FP) PO PRN (10:22)
[2021-05-07] MEDS: PRENATAL VITAMINS W/ FOLIC ACID TABLET (FP) PO SCH (10:22)
[2021-05-07] MEDS: BUPRENORPHINE/NALOXONE 8 MG/2 MG FILM PACKET SL SCH ×2 (10:23→18:17)
[2021-05-07] MEDS: hydrOXYzine PAMOATE 50 MG CAPSULE (FP) PO PRN (10:23)
[2021-05-07] MEDS: THIAMINE HCL 100 MG TABLET (FP) PO SCH (21:37)
[2021-05-07] MEDS: METHOCARBAMOL 500 MG TABLET PO PRN (21:37)
[2021-05-07] MEDS: SUVOREXANT 10 MG TABLET PO PRN (21:37)
[2021-05-08] MEDS: GABAPENTIN 300 MG CAPSULE PO SCH ×3 (06:59→21:50)
[2021-05-08] MEDS: PRENATAL VITAMINS W/ FOLIC ACID TABLET (FP) PO SCH (09:38)
[2021-05-08] MEDS: BUPRENORPHINE/NALOXONE 8 MG/2 MG FILM PACKET SL SCH ×2 (09:39→18:02)
[2021-05-08] MEDS: SUVOREXANT 10 MG TABLET PO PRN (21:49)
[2021-05-08] MEDS: THIAMINE HCL 100 MG TABLET (FP) PO SCH (21:50)
[2021-05-08] MEDS: hydrOXYzine PAMOATE 50 MG CAPSULE (FP) PO PRN (21:50)
[2021-05-08] MEDS: METHOCARBAMOL 500 MG TABLET PO PRN (21:50)
[2021-05-09] MEDS: GABAPENTIN 300 MG CAPSULE PO SCH (06:39)
[2021-05-09 07:23] VITALS: BP 111/71; PULSE 71; TEMP 97.7
[2021-05-09] MEDS: PRENATAL VITAMINS W/ FOLIC ACID TABLET (FP) PO SCH (10:01)
[2021-05-09] MEDS: BUPRENORPHINE/NALOXONE 8 MG/2 MG FILM PACKET SL SCH (10:02)
[2021-05-09] MEDS: hydrOXYzine PAMOATE 50 MG CAPSULE (FP) PO PRN (10:03)
[2021-05-09] MEDS: METHOCARBAMOL 500 MG TABLET PO PRN (10:03)
== END 2021-05-09 10:19 | disposition home or self-care (01) | DRG 772 ==
LOC: YASAS 18:34 → Y5N 18:41
PROVIDERS: ADMIT Allergy & Immunology; ATTEND Allergy & Immunology
PROC: HZ42ZZZ Group Counseling for Substance Abuse Treatment, Cognitive-Behavioral (ICD-10-PCS; principal; 2021-04-25)
DX: F11.20 Opioid dependence, uncomplicated (principal); F10.20 Alcohol dependence, uncomplicated; F13.20 Sedative, hypnotic or anxiolytic dependence, uncomplicated; F14.20 Cocaine dependence, uncomplicated; F12.10 Cannabis abuse, uncomplicated; F17.210 Nicotine dependence, cigarettes, uncomplicated; F19.280 Other psychoactive substance dependence with psychoactive substance-induced anxiety disorder; F19.24 Other psychoactive substance dependence with psychoactive substance-induced mood disorder; F39 Unspecified mood [affective] disorder; F31.9 Bipolar disorder, unspecified; F91.3 Oppositional defiant disorder; F42.9 Obsessive-compulsive disorder, unspecified; K21.9 Gastro-esophageal reflux disease without esophagitis; G40.89 Other seizures; Z62.810 Personal history of physical and sexual abuse in childhood; Z86.79 Personal history of other diseases of the circulatory system; Z51.81 Encounter for therapeutic drug level monitoring
CPT/HCPCS: Q0162

== ENCOUNTER 2022-01-05 16:16 | Inpatient (IN) | payer OTHER ==
[2022-01-05 17:47] VITALS: BMI 22.6
[2022-01-05] MEDS ORDERED: IBUPROFEN 400 MG TABLET (FP) PO PRN (19:00)
[2022-01-05] MEDS ORDERED: MAGNESIUM HYDROX 2400MG/30ML ORAL SUSPENSION 30 ML CUP PO PRN (19:00)
[2022-01-05] MEDS ORDERED: ACETAMINOPHEN 325 MG TABLET (FP) PO PRN (19:00)
[2022-01-05] MEDS ORDERED: MENTHOL/PHENOL 1 EACH UD MM PRN (19:00)
[2022-01-05] MEDS ORDERED: MAGNESIUM CITRATE 300 ML BOTTLE PO PRN (19:00)
[2022-01-05] MEDS ORDERED: MAG HYDROX/AL HYDROX/SIMETH 30 ML UNIT-DOSE CUP PO PRN (19:00)
[2022-01-05] MEDS ORDERED: ONDANSETRON *ODT* 4 MG TABLET SL PRN (19:00)
[2022-01-05] MEDS ORDERED: BISMUTH SUBSALICYLATE 524 MG/30 ML PO PRN (19:00)
[2022-01-05] MEDS ORDERED: chlordiazePOXIDE HCL 25 MG CAPSULE PO PRN (19:04)
[2022-01-05] MEDS ORDERED: cloNIDine HCL 0.1 MG TABLET PO PRN (19:04)
[2022-01-05] MEDS ORDERED: methaDONE HCL 10 MG TABLET (FOR DETOX USE ONLY) PO ONE (19:04)
[2022-01-05] MEDS: hydrOXYzine PAMOATE 25 MG CAPSULE (FP) PO SCH (21:10)
[2022-01-05] MEDS: PRENATAL VITAMINS W/ FOLIC ACID TABLET (FP) PO SCH (21:10)
[2022-01-05] MEDS: THIAMINE HCL 100 MG TABLET (FP) PO SCH (21:14)
[2022-01-05] MEDS: METHOCARBAMOL 500 MG TABLET PO PRN (21:19)
[2022-01-05] MEDS ORDERED: MELATONIN 5 MG TABLETS PO SCH (22:00)
[2022-01-05] MEDS: chlordiazePOXIDE HCL 25 MG CAPSULE PO SCH (22:28)
[2022-01-06] MEDS: hydrOXYzine PAMOATE 25 MG CAPSULE (FP) PO SCH ×5 (05:17→23:23)
[2022-01-06] MEDS: chlordiazePOXIDE HCL 25 MG CAPSULE PO SCH ×4 (05:17→22:41)
[2022-01-06] MEDS: METHOCARBAMOL 500 MG TABLET PO PRN ×3 (05:17→18:30)
[2022-01-06] MEDS ORDERED: methaDONE HCL 10 MG TABLET (FOR DETOX USE ONLY) ONE (10:10)
[2022-01-06] MEDS: PRENATAL VITAMINS W/ FOLIC ACID TABLET (FP) PO SCH (10:13)
[2022-01-06] MEDS: ACETAMINOPHEN 325 MG TABLET (FP) PO PRN (11:54)
[2022-01-06 12:01] LABS: BLOOD UREA NITROGEN 13.7 mg/dL (7-18); CALCIUM 9.6 mg/dL (8.5-10.1)
[2022-01-06 12:02] LABS: ALBUMIN 3.4 g/dl (3.4-5.0)
[2022-01-06 12:03] LABS: CREATININE 0.9 mg/dL (0.55-1.3)
[2022-01-06 12:06] LABS: BILIRUBIN,TOTAL 0.6 mg/dL (0.2-1); TOT PROT 7.3 g/dl (6.4-8.2)
[2022-01-06 12:08] LABS: HEMATOCRIT 34.8 % (35.4-49); HEMOGLOBIN 11.9 GM/dL (11.7-16.9); MCH 30.3 pg (25.7-33.7); MCHC 34.1 g/dl (32.0-35.9); MEAN CELL VOLUME 88.9 fl (80-96); MEAN PLT VOLUME 7.8 fl (7.5-11.1); PLATELET COUNT 178 10^3/uL (134-434); RBC 3.92 M/mm3 (4.00-5.60); RDW 13.4 % (11.9-15.9); WHITE BLOOD COUNT 4.4 K/mm3 (4.0-10.0)
[2022-01-06] MEDS: GABAPENTIN 300 MG CAPSULE PO SCH ×2 (14:34→22:41)
[2022-01-06 16:00] LABS: HIV INTERPRETATION NEGATIVE (NEGATIVE)
[2022-01-06] MEDS: THIAMINE HCL 100 MG TABLET (FP) PO SCH (22:41)
[2022-01-06] MEDS: SUVOREXANT 10 MG TABLET PO PRN (22:44)
[2022-01-07] MEDS: GABAPENTIN 300 MG CAPSULE PO SCH ×3 (05:46→22:30)
[2022-01-07] MEDS: hydrOXYzine PAMOATE 25 MG CAPSULE (FP) PO SCH ×5 (05:47→22:29)
[2022-01-07] MEDS: chlordiazePOXIDE HCL 25 MG CAPSULE PO SCH ×4 (05:47→22:30)
[2022-01-07] MEDS ORDERED: methaDONE HCL 10 MG TABLET (FOR DETOX USE ONLY) PO ONE (10:00)
[2022-01-07] MEDS: METHOCARBAMOL 500 MG TABLET PO PRN ×2 (10:36→18:03)
[2022-01-07] MEDS: PRENATAL VITAMINS W/ FOLIC ACID TABLET (FP) PO SCH (10:37)
[2022-01-07 12:07] LABS: SARS-CoV-2 NAA Not Detected (Not Detected)
[2022-01-07] MEDS: ACETAMINOPHEN 325 MG TABLET (FP) PO PRN (18:04)
[2022-01-07] MEDS: THIAMINE HCL 100 MG TABLET (FP) PO SCH (22:29)
[2022-01-07] MEDS: SUVOREXANT 10 MG TABLET PO PRN (22:32)
[2022-01-08] MEDS ORDERED: chlordiazePOXIDE HCL 10 MG CAPSULE PO PRN
[2022-01-08] MEDS: GABAPENTIN 300 MG CAPSULE PO SCH ×3 (05:42→22:46)
[2022-01-08] MEDS: METHOCARBAMOL 500 MG TABLET PO PRN ×3 (05:43→18:21)
[2022-01-08] MEDS: chlordiazePOXIDE HCL 10 MG CAPSULE PO SCH ×4 (05:43→22:46)
[2022-01-08] MEDS: hydrOXYzine PAMOATE 25 MG CAPSULE (FP) PO SCH ×5 (05:43→22:46)
[2022-01-08] MEDS ORDERED: methaDONE HCL 10 MG TABLET (FOR DETOX USE ONLY) ONE (08:42)
[2022-01-08] MEDS: PRENATAL VITAMINS W/ FOLIC ACID TABLET (FP) PO SCH (10:58)
[2022-01-08] MEDS ORDERED: ONDANSETRON *ODT* 4 MG TABLET SL ONE (14:06)
[2022-01-08] MEDS ORDERED: LOPERAMIDE HCL 2 MG CAPSULE PO ONE (14:07)
[2022-01-08] MEDS ORDERED: IBUPROFEN 600 MG TABLET (FP) PO ONE (14:08)
[2022-01-08] MEDS: LOPERAMIDE HCL 2 MG CAPSULE PO PRN ×2 (14:21→22:49)
[2022-01-08] MEDS: THIAMINE HCL 100 MG TABLET (FP) PO SCH (22:46)
[2022-01-08] MEDS: SUVOREXANT 10 MG TABLET PO PRN (22:49)
[2022-01-09] MEDS: hydrOXYzine PAMOATE 25 MG CAPSULE (FP) PO SCH ×5 (06:07→22:18)
[2022-01-09] MEDS: GABAPENTIN 300 MG CAPSULE PO SCH ×3 (06:08→22:18)
[2022-01-09] MEDS: chlordiazePOXIDE HCL 10 MG CAPSULE PO SCH ×2 (06:09→17:31)
[2022-01-09] MEDS ORDERED: methaDONE HCL 10 MG TABLET (FOR DETOX USE ONLY) PO ONE (10:00)
[2022-01-09] MEDS: PRENATAL VITAMINS W/ FOLIC ACID TABLET (FP) PO SCH (10:16)
[2022-01-09] MEDS: METHOCARBAMOL 500 MG TABLET PO PRN ×2 (10:16→17:31)
[2022-01-09] MEDS ORDERED: SUVOREXANT 10 MG TABLET PO PRN (22:00)
[2022-01-09] MEDS: THIAMINE HCL 100 MG TABLET (FP) PO SCH (22:18)
[2022-01-10] MEDS ORDERED: chlordiazePOXIDE HCL 10 MG CAPSULE PO ONE (05:00)
[2022-01-10] MEDS: hydrOXYzine PAMOATE 25 MG CAPSULE (FP) PO SCH ×2 (06:54→10:24)
[2022-01-10] MEDS: GABAPENTIN 300 MG CAPSULE PO SCH (06:54)
[2022-01-10 09:23] VITALS: BP 99/51; PULSE 53; TEMP 96.8
[2022-01-10] MEDS: PRENATAL VITAMINS W/ FOLIC ACID TABLET (FP) PO SCH (10:23)
[2022-01-10] MEDS: METHOCARBAMOL 500 MG TABLET PO PRN (10:24)
[2022-01-11 10:08] LABS: SARS-CoV-2 NAA Not Detected (Not Detected)
== END 2022-01-10 12:41 | disposition other institution (70) | DRG 773 ==
LOC: YASAS 16:16 → Y6N 20:20
PROVIDERS: ADMIT Allergy & Immunology; ATTEND Allergy & Immunology
PROC: HZ2ZZZZ Detoxification Services for Substance Abuse Treatment (ICD-10-PCS; principal; 2022-01-05)
DX: F11.23 Opioid dependence with withdrawal (principal); F10.230 Alcohol dependence with withdrawal, uncomplicated; F13.230 Sedative, hypnotic or anxiolytic dependence with withdrawal, uncomplicated; F14.10 Cocaine abuse, uncomplicated; F12.10 Cannabis abuse, uncomplicated; F17.210 Nicotine dependence, cigarettes, uncomplicated; F19.280 Other psychoactive substance dependence with psychoactive substance-induced anxiety disorder; F19.282 Other psychoactive substance dependence with psychoactive substance-induced sleep disorder; F31.9 Bipolar disorder, unspecified; F41.8 Other specified anxiety disorders; F90.9 Attention-deficit hyperactivity disorder, unspecified type; F42.9 Obsessive-compulsive disorder, unspecified; D50.9 Iron deficiency anemia, unspecified; K21.9 Gastro-esophageal reflux disease without esophagitis; L02.511 Cutaneous abscess of right hand; Z62.810 Personal history of physical and sexual abuse in childhood; Z87.01 Personal history of pneumonia (recurrent); Z86.69 Personal history of other diseases of the nervous system and sense organs; Z91.013 Allergy to seafood; Z56.0 Unemployment, unspecified
CPT/HCPCS: 36415; 80053; 85027; 86780; 87389; 87811; C9803; Q0162; U0003; U0005

== ENCOUNTER 2022-01-10 12:41 | Inpatient (IN) | payer OTHER ==
[2022-01-10] MEDS ORDERED: P-EPHED 60MG/TRIPROLIDI 2.5MG TABLET PO PRN (13:38)
[2022-01-10] MEDS ORDERED: guaiFENesin 200 MG/10 ML 10 ML UNIT-DOSE CUPS PO PRN (13:38)
[2022-01-10] MEDS ORDERED: IBUPROFEN 400 MG TABLET (FP) PO PRN (13:38)
[2022-01-10] MEDS ORDERED: MAGNESIUM HYDROX 2400MG/30ML ORAL SUSPENSION 30 ML CUP PO PRN (13:38)
[2022-01-10] MEDS ORDERED: MAGNESIUM CITRATE 300 ML BOTTLE PO PRN (13:38)
[2022-01-10] MEDS ORDERED: LOPERAMIDE HCL 2 MG CAPSULE PO PRN (13:38)
[2022-01-10] MEDS ORDERED: NICOTINE 10 MG CARTRIDGE (INHALER) IH PRN (13:38)
[2022-01-10] MEDS ORDERED: MAG HYDROX/AL HYDROX/SIMETH 30 ML UNIT-DOSE CUP PO PRN (13:38)
[2022-01-10] MEDS ORDERED: ACETAMINOPHEN 325 MG TABLET (FP) PO PRN (13:38)
[2022-01-10] MEDS: hydrOXYzine PAMOATE 25 MG CAPSULE (FP) PO SCH ×3 (15:21→21:23)
[2022-01-10] MEDS: GABAPENTIN 300 MG CAPSULE PO SCH (21:23)
[2022-01-10] MEDS: THIAMINE HCL 100 MG TABLET (FP) PO SCH (21:23)
[2022-01-10] MEDS ORDERED: MELATONIN 5 MG TABLETS PO SCH (22:00)
[2022-01-11] MEDS: hydrOXYzine PAMOATE 25 MG CAPSULE (FP) PO SCH ×2 (06:33→09:41)
[2022-01-11] MEDS: GABAPENTIN 300 MG CAPSULE PO SCH ×3 (06:33→21:38)
[2022-01-11] MEDS: NICOTINE 7 MG/24 HOURS TOPICAL PATCH TD SCH (09:41)
[2022-01-11] MEDS: PRENATAL VITAMINS W/ FOLIC ACID TABLET (FP) PO SCH (09:41)
[2022-01-11] MEDS ORDERED: hydrOXYzine PAMOATE 25 MG CAPSULE (FP) PO PRN (11:07)
[2022-01-11] MEDS ORDERED: METHOCARBAMOL 500 MG TABLET PO PRN (11:12)
[2022-01-11] MEDS: buPROPion HCL 75 MG TABLET PO SCH (17:13)
[2022-01-11] MEDS: THIAMINE HCL 100 MG TABLET (FP) PO SCH (21:38)
[2022-01-11] MEDS: METHOCARBAMOL 500 MG TABLET PO PRN (21:40)
[2022-01-11] MEDS ORDERED: SUVOREXANT 10 MG TABLET PO PRN (22:00)
[2022-01-12] MEDS: GABAPENTIN 300 MG CAPSULE PO SCH ×2 (06:27→13:01)
[2022-01-12] MEDS: METHOCARBAMOL 500 MG TABLET PO PRN (06:28)
[2022-01-12 07:04] VITALS: BP 123/83; PULSE 57; TEMP 97.1
[2022-01-12] MEDS: NICOTINE 7 MG/24 HOURS TOPICAL PATCH TD SCH (09:26)
[2022-01-12] MEDS: PRENATAL VITAMINS W/ FOLIC ACID TABLET (FP) PO SCH (09:26)
[2022-01-12] MEDS: buPROPion HCL 75 MG TABLET PO SCH (09:26)
[2022-01-12] MEDS ORDERED: BUPRENORPHINE/NALOXONE 2 MG/0.5 MG FILM PACKET SL SCH ×2 (10:00→15:45)
[2022-01-13 13:07] LABS: SARS-CoV-2 NAA Not Detected (Not Detected)
== END 2022-01-12 16:30 | disposition home or self-care (01) | DRG 772 ==
LOC: YASAS 12:41 → Y3E 12:42
PROVIDERS: ADMIT Allergy & Immunology; ATTEND Allergy & Immunology
PROC: HZ42ZZZ Group Counseling for Substance Abuse Treatment, Cognitive-Behavioral (ICD-10-PCS; principal; 2022-01-10)
DX: F11.20 Opioid dependence, uncomplicated (principal); F10.20 Alcohol dependence, uncomplicated; F14.20 Cocaine dependence, uncomplicated; F13.20 Sedative, hypnotic or anxiolytic dependence, uncomplicated; F12.10 Cannabis abuse, uncomplicated; F17.210 Nicotine dependence, cigarettes, uncomplicated; F19.280 Other psychoactive substance dependence with psychoactive substance-induced anxiety disorder; F19.282 Other psychoactive substance dependence with psychoactive substance-induced sleep disorder; F19.24 Other psychoactive substance dependence with psychoactive substance-induced mood disorder; F31.9 Bipolar disorder, unspecified; F39 Unspecified mood [affective] disorder; F41.9 Anxiety disorder, unspecified; F90.9 Attention-deficit hyperactivity disorder, unspecified type; K21.9 Gastro-esophageal reflux disease without esophagitis; Z86.69 Personal history of other diseases of the nervous system and sense organs; Z87.01 Personal history of pneumonia (recurrent)
CPT/HCPCS: C9803; U0003; U0005

== ENCOUNTER 2022-02-01 11:09 | Inpatient (IN) | payer OTHER ==
[2022-02-01] MEDS ORDERED: LOPERAMIDE HCL 2 MG CAPSULE PO PRN (11:56)
[2022-02-01] MEDS ORDERED: MAGNESIUM HYDROX 2400MG/30ML ORAL SUSPENSION 30 ML CUP PO PRN (11:56)
[2022-02-01] MEDS ORDERED: NICOTINE 10 MG CARTRIDGE (INHALER) IH PRN (11:56)
[2022-02-01] MEDS ORDERED: ACETAMINOPHEN 325 MG TABLET (FP) PO PRN (11:56)
[2022-02-01] MEDS ORDERED: BISMUTH SUBSALICYLATE 524 MG/30 ML PO PRN (11:56)
[2022-02-01] MEDS ORDERED: MAGNESIUM CITRATE 300 ML BOTTLE PO PRN (11:56)
[2022-02-01] MEDS ORDERED: ONDANSETRON *ODT* 4 MG TABLET SL PRN (11:56)
[2022-02-01] MEDS ORDERED: MENTHOL/PHENOL 1 EACH UD MM PRN (11:56)
[2022-02-01] MEDS ORDERED: MAG HYDROX/AL HYDROX/SIMETH 30 ML UNIT-DOSE CUP PO PRN (11:56)
[2022-02-01] MEDS ORDERED: IBUPROFEN 400 MG TABLET (FP) PO PRN (11:56)
[2022-02-01 12:54] VITALS: BMI 24.3
[2022-02-01] MEDS ORDERED: methaDONE HCL 10 MG TABLET (FOR DETOX USE ONLY) PO ONE (14:00)
[2022-02-01] MEDS: diazePAM 5 MG TABLET PO PRN (15:20)
[2022-02-01] MEDS: hydrOXYzine PAMOATE 25 MG CAPSULE (FP) PO SCH ×3 (15:21→22:27)
[2022-02-01] MEDS: PRENATAL VITAMINS W/ FOLIC ACID TABLET (FP) PO SCH (15:21)
[2022-02-01] MEDS: METHOCARBAMOL 500 MG TABLET PO PRN (15:23)
[2022-02-01] MEDS: diazePAM 5 MG TABLET PO SCH ×2 (17:54→22:27)
[2022-02-01] MEDS: MELATONIN 5 MG TABLETS PO SCH (22:27)
[2022-02-01] MEDS: THIAMINE HCL 100 MG TABLET (FP) PO SCH (22:27)
[2022-02-02] MEDS: METHOCARBAMOL 500 MG TABLET PO PRN ×2 (05:42→18:43)
[2022-02-02] MEDS: hydrOXYzine PAMOATE 25 MG CAPSULE (FP) PO SCH ×5 (05:42→22:30)
[2022-02-02] MEDS: diazePAM 5 MG TABLET PO SCH ×4 (05:43→22:30)
[2022-02-02] MEDS ORDERED: methaDONE HCL 10 MG TABLET (FOR DETOX USE ONLY) ONE (09:36)
[2022-02-02] MEDS: NICOTINE 7 MG/24 HOURS TOPICAL PATCH TD SCH (10:36)
[2022-02-02] MEDS: PRENATAL VITAMINS W/ FOLIC ACID TABLET (FP) PO SCH (10:36)
[2022-02-02] MEDS: cloNIDine HCL 0.1 MG TABLET PO PRN (12:54)
[2022-02-02] MEDS: MELATONIN 5 MG TABLETS PO SCH (22:29)
[2022-02-02] MEDS: THIAMINE HCL 100 MG TABLET (FP) PO SCH (22:30)
[2022-02-03] MEDS: diazePAM 5 MG TABLET PO SCH ×3 (05:24→22:19)
[2022-02-03] MEDS: hydrOXYzine PAMOATE 25 MG CAPSULE (FP) PO SCH ×5 (05:25→22:19)
[2022-02-03] MEDS ORDERED: methaDONE HCL 10 MG TABLET (FOR DETOX USE ONLY) PO ONE (10:00)
[2022-02-03 10:07] LABS: SARS-CoV-2 NAA Not Detected (Not Detected)
[2022-02-03] MEDS: diazePAM 5 MG TABLET PO PRN ×2 (10:13→17:46)
[2022-02-03] MEDS: NICOTINE 7 MG/24 HOURS TOPICAL PATCH TD SCH (10:14)
[2022-02-03] MEDS: PRENATAL VITAMINS W/ FOLIC ACID TABLET (FP) PO SCH (10:14)
[2022-02-03] MEDS: cloNIDine HCL 0.1 MG TABLET PO PRN (11:32)
[2022-02-03 12:12] LABS: HEMOGLOBIN 11.3 GM/dL (11.7-16.9); MCH 30.6 pg (25.7-33.7); MCHC 34.2 g/dl (32.0-35.9); MEAN CELL VOLUME 89.5 fl (80-96); MEAN PLT VOLUME 7.5 fl (7.5-11.1); PLATELET COUNT 150 10^3/uL (134-434); RBC 3.68 M/mm3 (4.00-5.60); RDW 13.6 % (11.9-15.9); WHITE BLOOD COUNT 2.8 K/mm3 (4.0-10.0)
[2022-02-03 13:08] LABS: ALBUMIN 2.8 g/dl (3.4-5.0); BILIRUBIN,TOTAL 0.3 mg/dL (0.2-1); BLOOD UREA NITROGEN 8.2 mg/dL (7-18); CALCIUM 8.6 mg/dL (8.5-10.1); CREATININE 0.7 mg/dL (0.55-1.3); TOT PROT 6.4 g/dl (6.4-8.2)
[2022-02-03] MEDS: ACETAMINOPHEN 325 MG TABLET (FP) PO PRN (22:19)
[2022-02-03] MEDS: METHOCARBAMOL 500 MG TABLET PO PRN (22:19)
[2022-02-03] MEDS: MELATONIN 5 MG TABLETS PO SCH (22:19)
[2022-02-03] MEDS: THIAMINE HCL 100 MG TABLET (FP) PO SCH (22:19)
[2022-02-04] MEDS: hydrOXYzine PAMOATE 25 MG CAPSULE (FP) PO SCH ×5 (06:12→22:39)
[2022-02-04] MEDS: diazePAM 5 MG TABLET PO SCH ×2 (06:12→17:32)
[2022-02-04] MEDS: METHOCARBAMOL 500 MG TABLET PO PRN ×3 (06:13→22:39)
[2022-02-04] MEDS ORDERED: methaDONE HCL 10 MG TABLET (FOR DETOX USE ONLY) ONE (09:50)
[2022-02-04] MEDS: diazePAM 5 MG TABLET PO PRN (10:10)
[2022-02-04] MEDS: NICOTINE 7 MG/24 HOURS TOPICAL PATCH TD SCH (10:10)
[2022-02-04] MEDS: PRENATAL VITAMINS W/ FOLIC ACID TABLET (FP) PO SCH (10:10)
[2022-02-04] MEDS: ACETAMINOPHEN 325 MG TABLET (FP) PO PRN (17:32)
[2022-02-04] MEDS: THIAMINE HCL 100 MG TABLET (FP) PO SCH (22:39)
[2022-02-04] MEDS: MELATONIN 5 MG TABLETS PO SCH (22:39)
[2022-02-05] MEDS: hydrOXYzine PAMOATE 25 MG CAPSULE (FP) PO SCH ×4 (05:57→18:02)
[2022-02-05] MEDS: METHOCARBAMOL 500 MG TABLET PO PRN ×3 (05:58→17:59)
[2022-02-05] MEDS ORDERED: diazePAM 5 MG TABLET PO ONE (06:00)
[2022-02-05] MEDS ORDERED: methaDONE HCL 10 MG TABLET (FOR DETOX USE ONLY) PO ONE (10:00)
[2022-02-05] MEDS: NICOTINE 7 MG/24 HOURS TOPICAL PATCH TD SCH (10:23)
[2022-02-05] MEDS: ACETAMINOPHEN 325 MG TABLET (FP) PO PRN ×2 (10:23→18:00)
[2022-02-05] MEDS: PRENATAL VITAMINS W/ FOLIC ACID TABLET (FP) PO SCH (10:23)
[2022-02-05 12:00] LABS: BASO % 1.7 % (0-2.0); HEMATOCRIT 36.2 % (35.4-49); HEMOGLOBIN 12.4 GM/dL (11.7-16.9); LYMPH % 49.9 % (8-40); MCH 30.8 pg (25.7-33.7); MCHC 34.2 g/dl (32.0-35.9); MEAN PLT VOLUME 7.5 fl (7.5-11.1); MONO % 11.9 % (3.8-10.2); NEUT % 27.5 % (42.8-82.8); PLATELET COUNT 160 10^3/uL (134-434); RBC 4.02 M/mm3 (4.00-5.60); RDW 13.3 % (11.9-15.9); WHITE BLOOD COUNT 3.2 K/mm3 (4.0-10.0)
[2022-02-05] MEDS: GABAPENTIN 300 MG CAPSULE PO SCH ×2 (13:14→22:12)
[2022-02-05] MEDS ORDERED: MELATONIN 5 MG TABLETS PO SCH (19:06)
[2022-02-05] MEDS ORDERED: SUVOREXANT 10 MG TABLET PO PRN (22:00)
[2022-02-05] MEDS: THIAMINE HCL 100 MG TABLET (FP) PO SCH (22:12)
[2022-02-05] MEDS: diazePAM 5 MG TABLET PO PRN (22:12)
[2022-02-06] MEDS: GABAPENTIN 300 MG CAPSULE PO SCH ×2 (05:29→13:40)
[2022-02-06] MEDS: diazePAM 5 MG TABLET PO PRN (05:31)
[2022-02-06] MEDS: PRENATAL VITAMINS W/ FOLIC ACID TABLET (FP) PO SCH (10:20)
[2022-02-06] MEDS: METHOCARBAMOL 500 MG TABLET PO PRN (10:20)
[2022-02-06] MEDS: NICOTINE 7 MG/24 HOURS TOPICAL PATCH TD SCH (10:20)
[2022-02-06] MEDS: ACETAMINOPHEN 325 MG TABLET (FP) PO PRN (12:22)
[2022-02-06 12:52] VITALS: BP 113/67; PULSE 58; TEMP 97.3
== END 2022-02-06 14:05 | disposition other institution (70) | DRG 773 ==
LOC: YASAS 11:09 → Y3N 13:27
PROVIDERS: ADMIT Allergy & Immunology; ATTEND Allergy & Immunology
PROC: HZ2ZZZZ Detoxification Services for Substance Abuse Treatment (ICD-10-PCS; principal; 2022-02-01)
DX: F11.23 Opioid dependence with withdrawal (principal); F13.230 Sedative, hypnotic or anxiolytic dependence with withdrawal, uncomplicated; F10.20 Alcohol dependence, uncomplicated; F17.210 Nicotine dependence, cigarettes, uncomplicated; F19.280 Other psychoactive substance dependence with psychoactive substance-induced anxiety disorder; F19.282 Other psychoactive substance dependence with psychoactive substance-induced sleep disorder; F31.9 Bipolar disorder, unspecified; F42.9 Obsessive-compulsive disorder, unspecified; F90.9 Attention-deficit hyperactivity disorder, unspecified type; F51.05 Insomnia due to other mental disorder; E88.09 Other disorders of plasma-protein metabolism, not elsewhere classified; K21.9 Gastro-esophageal reflux disease without esophagitis; R74.01 Elevation of levels of liver transaminase levels; Z87.01 Personal history of pneumonia (recurrent); Z91.013 Allergy to seafood
CPT/HCPCS: 36415; 80053; 85025; 85027; 86780; 87811; 93005; 93010; C9803-CS; J0735; U0003; U0005

== ENCOUNTER 2022-04-05 16:42 | Inpatient (IN) | payer OTHER ==
[2022-04-05 17:25] VITALS: BMI 22.8
[2022-04-05] MEDS ORDERED: MAGNESIUM CITRATE 300 ML BOTTLE PO PRN (18:37)
[2022-04-05] MEDS ORDERED: LOPERAMIDE HCL 2 MG CAPSULE PO PRN (18:37)
[2022-04-05] MEDS ORDERED: BENZOCAINE/MENTHOL (CHLORASEPTIC ) LOZENGE MM PRN (18:37)
[2022-04-05] MEDS ORDERED: MAG HYDROX/AL HYDROX/SIMETH 30 ML UNIT-DOSE CUP PO PRN (18:37)
[2022-04-05] MEDS ORDERED: IBUPROFEN 400 MG TABLET (FP) PO PRN (18:37)
[2022-04-05] MEDS ORDERED: NICOTINE 10 MG CARTRIDGE (INHALER) IH PRN (18:37)
[2022-04-05] MEDS ORDERED: BISMUTH SUBSALICYLATE 524 MG/30 ML PO PRN (18:37)
[2022-04-05] MEDS ORDERED: DICYCLOMINE HCL 10 MG CAPSULE PO PRN (18:37)
[2022-04-05] MEDS ORDERED: ACETAMINOPHEN 325 MG TABLET (FP) PO PRN (18:37)
[2022-04-05] MEDS ORDERED: MAGNESIUM HYDROX 2400MG/30ML ORAL SUSPENSION 30 ML CUP PO PRN (18:37)
[2022-04-05] MEDS ORDERED: ONDANSETRON *ODT* 4 MG TABLET SL PRN (18:37)
[2022-04-05] MEDS ORDERED: diazePAM 5 MG TABLET PO PRN (18:37)
[2022-04-05] MEDS ORDERED: cloNIDine HCL 0.1 MG TABLET PO PRN (20:17)
[2022-04-05] MEDS ORDERED: methaDONE HCL 10 MG TABLET (FOR DETOX USE ONLY) PO ONE (20:17)
[2022-04-05] MEDS ORDERED: methaDONE HCL 10 MG TABLET (FOR DETOX USE ONLY) ONE (20:34)
[2022-04-05] MEDS ORDERED: chlordiazePOXIDE HCL 25 MG CAPSULE ONE (20:39)
[2022-04-05] MEDS: chlordiazePOXIDE HCL 25 MG CAPSULE PO PRN (20:47)
[2022-04-05] MEDS ORDERED: hydrOXYzine PAMOATE 25 MG CAPSULE (FP) PO SCH (22:00)
[2022-04-05] MEDS ORDERED: MELATONIN 5 MG TABLETS PO SCH (22:00)
[2022-04-05] MEDS: THIAMINE HCL 100 MG TABLET (FP) PO SCH (22:23)
[2022-04-05] MEDS: MELATONIN 5 MG TABLETS PO PRN (22:23)
[2022-04-05] MEDS: chlordiazePOXIDE HCL 25 MG CAPSULE PO SCH (22:23)
[2022-04-05] MEDS: ACETAMINOPHEN 325 MG TABLET (FP) PO PRN (22:24)
[2022-04-05] MEDS: PRENATAL VITAMINS W/ FOLIC ACID TABLET (FP) PO SCH (22:24)
[2022-04-05] MEDS ORDERED: diazePAM 5 MG TABLET PO SCH (23:00)
[2022-04-05] MEDS: CLINDAMYCIN HCL 150 MG CAPSULE (FP) PO SCH (23:54)
[2022-04-06] MEDS: chlordiazePOXIDE HCL 25 MG CAPSULE PO SCH ×4 (06:18→22:08)
[2022-04-06] MEDS: CLINDAMYCIN HCL 150 MG CAPSULE (FP) PO SCH ×4 (06:19→23:06)
[2022-04-06] MEDS ORDERED: methaDONE HCL 10 MG TABLET (FOR DETOX USE ONLY) ONE (09:30)
[2022-04-06] MEDS: PRENATAL VITAMINS W/ FOLIC ACID TABLET (FP) PO SCH (10:19)
[2022-04-06] MEDS: METHOCARBAMOL 500 MG TABLET PO PRN (10:20)
[2022-04-06 10:47] LABS: HEMATOCRIT 36.1 % (35.4-49); HEMOGLOBIN 12.3 GM/dL (11.7-16.9); MCH 29.6 pg (25.7-33.7); MEAN CELL VOLUME 87.3 fl (80-96); MEAN PLT VOLUME 7.9 fl (7.5-11.1); PLATELET COUNT 140 10^3/uL (134-434); RBC 4.14 M/mm3 (4.00-5.60); RDW 13.4 % (11.9-15.9); WHITE BLOOD COUNT 3.4 K/mm3 (4.0-10.0)
[2022-04-06 11:03] LABS: ALBUMIN 3.2 g/dl (3.4-5.0); BLOOD UREA NITROGEN 15.7 mg/dL (7-18); CALCIUM 8.9 mg/dL (8.5-10.1)
[2022-04-06 11:06] LABS: CREATININE 0.9 mg/dL (0.55-1.3)
[2022-04-06 11:08] LABS: BILIRUBIN,TOTAL 0.8 mg/dL (0.2-1)
[2022-04-06] MEDS: buPROPion HCL 75 MG TABLET PO SCH (12:16)
[2022-04-06] MEDS: chlordiazePOXIDE HCL 25 MG CAPSULE PO PRN (12:25)
[2022-04-06] MEDS: GABAPENTIN 100 MG CAPSULE PO SCH ×2 (14:55→22:08)
[2022-04-06] MEDS: ACETAMINOPHEN 325 MG TABLET (FP) PO PRN (18:03)
[2022-04-06] MEDS: MELATONIN 5 MG TABLETS PO PRN (22:08)
[2022-04-06] MEDS: THIAMINE HCL 100 MG TABLET (FP) PO SCH (22:08)
[2022-04-07] MEDS: chlordiazePOXIDE HCL 25 MG CAPSULE PO SCH ×4 (05:13→22:04)
[2022-04-07] MEDS: CLINDAMYCIN HCL 150 MG CAPSULE (FP) PO SCH ×4 (05:14→23:28)
[2022-04-07] MEDS: GABAPENTIN 100 MG CAPSULE PO SCH ×3 (05:14→22:03)
[2022-04-07] MEDS ORDERED: diazePAM 5 MG TABLET PO SCH (06:00)
[2022-04-07] MEDS ORDERED: methaDONE HCL 10 MG TABLET (FOR DETOX USE ONLY) PO ONE (10:00)
[2022-04-07] MEDS: PRENATAL VITAMINS W/ FOLIC ACID TABLET (FP) PO SCH (10:18)
[2022-04-07] MEDS: METHOCARBAMOL 500 MG TABLET PO PRN ×2 (10:18→17:22)
[2022-04-07] MEDS: buPROPion HCL 75 MG TABLET PO SCH (10:18)
[2022-04-07] MEDS: chlordiazePOXIDE HCL 25 MG CAPSULE PO PRN ×2 (13:13→20:13)
[2022-04-07] MEDS: MELATONIN 5 MG TABLETS PO PRN (22:03)
[2022-04-07] MEDS: THIAMINE HCL 100 MG TABLET (FP) PO SCH (22:03)
[2022-04-08] MEDS ORDERED: diazePAM 5 MG TABLET PO SCH (06:00)
[2022-04-08] MEDS: chlordiazePOXIDE HCL 10 MG CAPSULE PO SCH ×4 (06:16→22:12)
[2022-04-08] MEDS: GABAPENTIN 100 MG CAPSULE PO SCH ×3 (06:16→22:10)
[2022-04-08] MEDS: CLINDAMYCIN HCL 150 MG CAPSULE (FP) PO SCH ×3 (06:16→17:50)
[2022-04-08] MEDS ORDERED: methaDONE HCL 10 MG TABLET (FOR DETOX USE ONLY) ONE (09:46)
[2022-04-08] MEDS: PRENATAL VITAMINS W/ FOLIC ACID TABLET (FP) PO SCH (10:48)
[2022-04-08] MEDS: buPROPion HCL 75 MG TABLET PO SCH (10:49)
[2022-04-08] MEDS: hydrOXYzine PAMOATE 25 MG CAPSULE (FP) PO PRN (12:30)
[2022-04-08] MEDS: METHOCARBAMOL 500 MG TABLET PO PRN (13:29)
[2022-04-08] MEDS: chlordiazePOXIDE HCL 10 MG CAPSULE PO PRN ×2 (14:27→20:03)
[2022-04-08] MEDS: ACETAMINOPHEN 325 MG TABLET (FP) PO PRN (20:04)
[2022-04-08] MEDS: THIAMINE HCL 100 MG TABLET (FP) PO SCH (22:10)
[2022-04-09] MEDS: CLINDAMYCIN HCL 150 MG CAPSULE (FP) PO SCH ×4 (01:00→17:40)
[2022-04-09] MEDS: chlordiazePOXIDE HCL 10 MG CAPSULE PO SCH ×2 (05:40→17:42)
[2022-04-09] MEDS: GABAPENTIN 100 MG CAPSULE PO SCH ×3 (05:41→22:18)
[2022-04-09] MEDS ORDERED: diazePAM 5 MG TABLET PO ONE (06:00)
[2022-04-09] MEDS ORDERED: methaDONE HCL 10 MG TABLET (FOR DETOX USE ONLY) PO ONE (10:00)
[2022-04-09] MEDS: PRENATAL VITAMINS W/ FOLIC ACID TABLET (FP) PO SCH (10:20)
[2022-04-09] MEDS: buPROPion HCL 75 MG TABLET PO SCH (10:20)
[2022-04-09] MEDS: hydrOXYzine PAMOATE 25 MG CAPSULE (FP) PO PRN (10:22)
[2022-04-09] MEDS: METHOCARBAMOL 500 MG TABLET PO PRN ×2 (10:22→17:40)
[2022-04-09] MEDS: THIAMINE HCL 100 MG TABLET (FP) PO SCH (22:17)
[2022-04-10] MEDS: CLINDAMYCIN HCL 150 MG CAPSULE (FP) PO SCH ×3 (00:03→12:06)
[2022-04-10] MEDS ORDERED: chlordiazePOXIDE HCL 10 MG CAPSULE PO ONE (05:00)
[2022-04-10] MEDS: GABAPENTIN 100 MG CAPSULE PO SCH (06:08)
[2022-04-10] MEDS: buPROPion HCL 75 MG TABLET PO SCH (10:19)
[2022-04-10] MEDS: PRENATAL VITAMINS W/ FOLIC ACID TABLET (FP) PO SCH (10:19)
[2022-04-10 12:55] VITALS: BP 108/65; PULSE 61; TEMP 97.1
== END 2022-04-10 13:13 | disposition other institution (70) | DRG 773 ==
LOC: YASAS 16:42 → Y3N 20:49
PROVIDERS: ADMIT Allergy & Immunology; ATTEND Surgery
PROC: HZ2ZZZZ Detoxification Services for Substance Abuse Treatment (ICD-10-PCS; principal; 2022-04-05)
DX: F11.23 Opioid dependence with withdrawal (principal); F10.230 Alcohol dependence with withdrawal, uncomplicated; F13.230 Sedative, hypnotic or anxiolytic dependence with withdrawal, uncomplicated; F17.290 Nicotine dependence, other tobacco product, uncomplicated; F19.282 Other psychoactive substance dependence with psychoactive substance-induced sleep disorder; F19.280 Other psychoactive substance dependence with psychoactive substance-induced anxiety disorder; F41.1 Generalized anxiety disorder; F42.9 Obsessive-compulsive disorder, unspecified; F31.9 Bipolar disorder, unspecified; L03.113 Cellulitis of right upper limb; Z62.810 Personal history of physical and sexual abuse in childhood; Z86.69 Personal history of other diseases of the nervous system and sense organs; Z91.013 Allergy to seafood
CPT/HCPCS: 36415; 80053; 85027; 86780; 93005; 93010; C9803-CS; U0003; U0005

== ENCOUNTER 2022-04-10 13:16 | Inpatient (IN) | payer OTHER ==
[2022-04-10] MEDS ORDERED: P-EPHED 60MG/TRIPROLIDI 2.5MG TABLET PO PRN (14:16)
[2022-04-10] MEDS ORDERED: MAGNESIUM HYDROX 2400MG/30ML ORAL SUSPENSION 30 ML CUP PO PRN (14:16)
[2022-04-10] MEDS ORDERED: guaiFENesin 200 MG/10 ML 10 ML UNIT-DOSE CUPS PO PRN (14:16)
[2022-04-10] MEDS ORDERED: MAG HYDROX/AL HYDROX/SIMETH 30 ML UNIT-DOSE CUP PO PRN (14:16)
[2022-04-10] MEDS ORDERED: ACETAMINOPHEN 325 MG TABLET (FP) PO PRN (14:16)
[2022-04-10] MEDS ORDERED: NICOTINE 10 MG CARTRIDGE (INHALER) IH PRN (14:16)
[2022-04-10] MEDS ORDERED: BENZOCAINE/MENTHOL (CHLORASEPTIC ) LOZENGE MM PRN (14:16)
[2022-04-10] MEDS ORDERED: LOPERAMIDE HCL 2 MG CAPSULE PO PRN (14:16)
[2022-04-10] MEDS ORDERED: MAGNESIUM CITRATE 300 ML BOTTLE PO PRN (14:16)
[2022-04-10] MEDS ORDERED: hydrOXYzine PAMOATE 25 MG CAPSULE (FP) PO PRN (14:18)
[2022-04-10] MEDS ORDERED: hydrOXYzine PAMOATE 25 MG CAPSULE (FP) PO SCH (18:00)
[2022-04-10] MEDS: GABAPENTIN 300 MG CAPSULE PO SCH (21:12)
[2022-04-10] MEDS: SUVOREXANT 10 MG TABLET PO PRN (21:12)
[2022-04-10] MEDS: THIAMINE HCL 100 MG TABLET (FP) PO SCH (21:13)
[2022-04-10] MEDS ORDERED: MELATONIN 5 MG TABLETS PO SCH (22:00)
[2022-04-11] MEDS: GABAPENTIN 300 MG CAPSULE PO SCH ×3 (06:21→21:31)
[2022-04-11] MEDS ORDERED: NICOTINE 7 MG/24 HOURS TOPICAL PATCH TD SCH (10:00)
[2022-04-11] MEDS: buPROPion HCL 75 MG TABLET PO SCH (10:01)
[2022-04-11] MEDS: PRENATAL VITAMINS W/ FOLIC ACID TABLET (FP) PO SCH (10:01)
[2022-04-11] MEDS: CLINDAMYCIN HCL 150 MG CAPSULE (FP) PO SCH ×3 (13:44→23:52)
[2022-04-11] MEDS: BUPRENORPHINE/NALOXONE 4 MG/1 MG FILM PACKET SL SCH ×2 (14:44→17:48)
[2022-04-11] MEDS: SUVOREXANT 10 MG TABLET PO PRN (21:30)
[2022-04-11] MEDS: THIAMINE HCL 100 MG TABLET (FP) PO SCH (21:31)
[2022-04-12] MEDS: GABAPENTIN 300 MG CAPSULE PO SCH ×3 (06:21→21:02)
[2022-04-12] MEDS: CLINDAMYCIN HCL 150 MG CAPSULE (FP) PO SCH ×4 (06:21→23:02)
[2022-04-12] MEDS: PRENATAL VITAMINS W/ FOLIC ACID TABLET (FP) PO SCH (10:32)
[2022-04-12] MEDS: buPROPion HCL 75 MG TABLET PO SCH (10:32)
[2022-04-12] MEDS: BUPRENORPHINE/NALOXONE 4 MG/1 MG FILM PACKET SL SCH ×2 (10:33→17:56)
[2022-04-12] MEDS: THIAMINE HCL 100 MG TABLET (FP) PO SCH (21:02)
[2022-04-12] MEDS: SUVOREXANT 10 MG TABLET PO PRN (21:03)
[2022-04-13] MEDS: CLINDAMYCIN HCL 150 MG CAPSULE (FP) PO SCH ×4 (06:06→23:34)
[2022-04-13] MEDS: GABAPENTIN 300 MG CAPSULE PO SCH ×3 (06:06→21:14)
[2022-04-13] MEDS: buPROPion HCL 75 MG TABLET PO SCH (10:24)
[2022-04-13] MEDS: PRENATAL VITAMINS W/ FOLIC ACID TABLET (FP) PO SCH (10:24)
[2022-04-13] MEDS: BUPRENORPHINE/NALOXONE 4 MG/1 MG FILM PACKET SL SCH ×2 (10:24→17:26)
[2022-04-13] MEDS: IBUPROFEN 400 MG TABLET (FP) PO PRN (14:11)
[2022-04-13] MEDS: THIAMINE HCL 100 MG TABLET (FP) PO SCH (21:14)
[2022-04-13] MEDS: SUVOREXANT 10 MG TABLET PO PRN (21:15)
[2022-04-14] MEDS: GABAPENTIN 300 MG CAPSULE PO SCH ×3 (06:16→21:13)
[2022-04-14] MEDS: CLINDAMYCIN HCL 150 MG CAPSULE (FP) PO SCH ×3 (06:16→18:18)
[2022-04-14] MEDS: PRENATAL VITAMINS W/ FOLIC ACID TABLET (FP) PO SCH (09:36)
[2022-04-14] MEDS: BUPRENORPHINE/NALOXONE 4 MG/1 MG FILM PACKET SL SCH ×3 (09:37→21:14)
[2022-04-14] MEDS: buPROPion HCL 75 MG TABLET PO SCH (09:37)
[2022-04-14] MEDS: THIAMINE HCL 100 MG TABLET (FP) PO SCH (21:13)
[2022-04-14] MEDS: SUVOREXANT 10 MG TABLET PO PRN (21:14)
[2022-04-15] MEDS: CLINDAMYCIN HCL 150 MG CAPSULE (FP) PO SCH ×4 (00:29→17:22)
[2022-04-15] MEDS: GABAPENTIN 300 MG CAPSULE PO SCH ×3 (06:14→21:14)
[2022-04-15] MEDS: BUPRENORPHINE/NALOXONE 4 MG/1 MG FILM PACKET SL SCH ×3 (06:14→17:24)
[2022-04-15] MEDS: PRENATAL VITAMINS W/ FOLIC ACID TABLET (FP) PO SCH (10:02)
[2022-04-15] MEDS: buPROPion HCL 75 MG TABLET PO SCH (10:02)
[2022-04-15] MEDS: THIAMINE HCL 100 MG TABLET (FP) PO SCH (21:14)
[2022-04-15] MEDS: SUVOREXANT 10 MG TABLET PO PRN (21:15)
[2022-04-16] MEDS: CLINDAMYCIN HCL 150 MG CAPSULE (FP) PO SCH ×3 (00:59→12:16)
[2022-04-16] MEDS: GABAPENTIN 300 MG CAPSULE PO SCH ×3 (06:06→21:23)
[2022-04-16] MEDS: BUPRENORPHINE/NALOXONE 8 MG/2 MG FILM PACKET SL SCH (06:06)
[2022-04-16] MEDS: PRENATAL VITAMINS W/ FOLIC ACID TABLET (FP) PO SCH (09:53)
[2022-04-16] MEDS: buPROPion HCL 75 MG TABLET PO SCH (09:53)
[2022-04-16] MEDS: BUPRENORPHINE/NALOXONE 4 MG/1 MG FILM PACKET SL SCH (17:49)
[2022-04-16] MEDS: THIAMINE HCL 100 MG TABLET (FP) PO SCH (21:23)
[2022-04-17] MEDS: BUPRENORPHINE/NALOXONE 8 MG/2 MG FILM PACKET SL SCH (06:30)
[2022-04-17] MEDS: GABAPENTIN 300 MG CAPSULE PO SCH ×3 (06:30→21:10)
[2022-04-17] MEDS: buPROPion HCL 75 MG TABLET PO SCH (10:00)
[2022-04-17] MEDS: PRENATAL VITAMINS W/ FOLIC ACID TABLET (FP) PO SCH (10:01)
[2022-04-17 10:20] LABS: CALCIUM 9.5 mg/dL (8.5-10.1)
[2022-04-17 10:21] LABS: ALBUMIN 3.7 g/dl (3.4-5.0); BLOOD UREA NITROGEN 9.1 mg/dL (7-18)
[2022-04-17 10:26] LABS: BILIRUBIN,TOTAL 0.6 mg/dL (0.2-1); TOT PROT 7.8 g/dl (6.4-8.2)
[2022-04-17] MEDS: BUPRENORPHINE/NALOXONE 4 MG/1 MG FILM PACKET SL SCH (18:09)
[2022-04-17] MEDS: THIAMINE HCL 100 MG TABLET (FP) PO SCH (21:10)
[2022-04-17] MEDS: SUVOREXANT 10 MG TABLET PO PRN (21:11)
[2022-04-18] MEDS: GABAPENTIN 300 MG CAPSULE PO SCH ×3 (06:10→21:03)
[2022-04-18] MEDS: BUPRENORPHINE/NALOXONE 8 MG/2 MG FILM PACKET SL SCH (06:11)
[2022-04-18] MEDS: PRENATAL VITAMINS W/ FOLIC ACID TABLET (FP) PO SCH (09:36)
[2022-04-18] MEDS: buPROPion HCL 75 MG TABLET PO SCH (09:36)
[2022-04-18] MEDS: BUPRENORPHINE/NALOXONE 4 MG/1 MG FILM PACKET SL SCH (17:24)
[2022-04-18] MEDS: SUVOREXANT 10 MG TABLET PO PRN (21:03)
[2022-04-18] MEDS: THIAMINE HCL 100 MG TABLET (FP) PO SCH (21:03)
[2022-04-19] MEDS: BUPRENORPHINE/NALOXONE 8 MG/2 MG FILM PACKET SL SCH (06:13)
[2022-04-19] MEDS: GABAPENTIN 300 MG CAPSULE PO SCH ×3 (06:13→21:05)
[2022-04-19] MEDS: buPROPion HCL 75 MG TABLET PO SCH (10:04)
[2022-04-19] MEDS: PRENATAL VITAMINS W/ FOLIC ACID TABLET (FP) PO SCH (10:04)
[2022-04-19] MEDS: BUPRENORPHINE/NALOXONE 4 MG/1 MG FILM PACKET SL SCH (18:19)
[2022-04-19] MEDS: SUVOREXANT 10 MG TABLET PO PRN (21:05)
[2022-04-19] MEDS: THIAMINE HCL 100 MG TABLET (FP) PO SCH (21:05)
[2022-04-20] MEDS: GABAPENTIN 300 MG CAPSULE PO SCH ×3 (06:10→21:10)
[2022-04-20] MEDS: BUPRENORPHINE/NALOXONE 8 MG/2 MG FILM PACKET SL SCH (06:10)
[2022-04-20] MEDS: buPROPion HCL 75 MG TABLET PO SCH (10:12)
[2022-04-20] MEDS: PRENATAL VITAMINS W/ FOLIC ACID TABLET (FP) PO SCH (10:12)
[2022-04-20] MEDS: BUPRENORPHINE/NALOXONE 4 MG/1 MG FILM PACKET SL SCH (17:59)
[2022-04-20] MEDS: THIAMINE HCL 100 MG TABLET (FP) PO SCH (21:10)
[2022-04-20] MEDS: SUVOREXANT 10 MG TABLET PO PRN (21:11)
[2022-04-21] MEDS: BUPRENORPHINE/NALOXONE 8 MG/2 MG FILM PACKET SL SCH (06:17)
[2022-04-21] MEDS: GABAPENTIN 300 MG CAPSULE PO SCH ×3 (06:17→21:11)
[2022-04-21] MEDS: PRENATAL VITAMINS W/ FOLIC ACID TABLET (FP) PO SCH (10:18)
[2022-04-21] MEDS: buPROPion HCL 75 MG TABLET PO SCH (10:19)
[2022-04-21] MEDS: BUPRENORPHINE/NALOXONE 4 MG/1 MG FILM PACKET SL SCH (17:45)
[2022-04-21] MEDS: SUVOREXANT 10 MG TABLET PO PRN (21:10)
[2022-04-21] MEDS: THIAMINE HCL 100 MG TABLET (FP) PO SCH (21:11)
[2022-04-22] MEDS: GABAPENTIN 300 MG CAPSULE PO SCH ×3 (06:21→21:07)
[2022-04-22] MEDS: BUPRENORPHINE/NALOXONE 8 MG/2 MG FILM PACKET SL SCH (06:21)
[2022-04-22] MEDS: buPROPion HCL 75 MG TABLET PO SCH (10:08)
[2022-04-22] MEDS: PRENATAL VITAMINS W/ FOLIC ACID TABLET (FP) PO SCH (10:08)
[2022-04-22] MEDS: BUPRENORPHINE/NALOXONE 4 MG/1 MG FILM PACKET SL SCH (18:01)
[2022-04-22] MEDS: SUVOREXANT 10 MG TABLET PO PRN (21:07)
[2022-04-22] MEDS: THIAMINE HCL 100 MG TABLET (FP) PO SCH (21:07)
[2022-04-23] MEDS: BUPRENORPHINE/NALOXONE 8 MG/2 MG FILM PACKET SL SCH (06:18)
[2022-04-23] MEDS: GABAPENTIN 300 MG CAPSULE PO SCH ×3 (06:18→21:24)
[2022-04-23] MEDS: PRENATAL VITAMINS W/ FOLIC ACID TABLET (FP) PO SCH (10:09)
[2022-04-23] MEDS: buPROPion HCL 75 MG TABLET PO SCH (10:09)
[2022-04-23] MEDS: IBUPROFEN 400 MG TABLET (FP) PO PRN (14:05)
[2022-04-23] MEDS: BUPRENORPHINE/NALOXONE 4 MG/1 MG FILM PACKET SL SCH (17:56)
[2022-04-23] MEDS: THIAMINE HCL 100 MG TABLET (FP) PO SCH (21:24)
[2022-04-23] MEDS: SUVOREXANT 10 MG TABLET PO PRN (21:25)
[2022-04-24] MEDS: GABAPENTIN 300 MG CAPSULE PO SCH ×3 (06:14→21:03)
[2022-04-24] MEDS: BUPRENORPHINE/NALOXONE 8 MG/2 MG FILM PACKET SL SCH (06:14)
[2022-04-24] MEDS: PRENATAL VITAMINS W/ FOLIC ACID TABLET (FP) PO SCH (10:38)
[2022-04-24] MEDS: buPROPion HCL 75 MG TABLET PO SCH (10:39)
[2022-04-24] MEDS: BUPRENORPHINE/NALOXONE 4 MG/1 MG FILM PACKET SL SCH (17:31)
[2022-04-24] MEDS: THIAMINE HCL 100 MG TABLET (FP) PO SCH (21:03)
[2022-04-24] MEDS: SUVOREXANT 10 MG TABLET PO PRN (21:04)
[2022-04-25] MEDS: GABAPENTIN 300 MG CAPSULE PO SCH (06:06)
[2022-04-25] MEDS: BUPRENORPHINE/NALOXONE 8 MG/2 MG FILM PACKET SL SCH (06:06)
[2022-04-25 06:54] VITALS: BP 108/67; PULSE 76; TEMP 97.7
[2022-04-25] MEDS: buPROPion HCL 75 MG TABLET PO SCH (10:15)
[2022-04-25] MEDS: PRENATAL VITAMINS W/ FOLIC ACID TABLET (FP) PO SCH (10:15)
== END 2022-04-25 13:45 | disposition home or self-care (01) | DRG 772 ==
LOC: YASAS 13:16 → Y3W 13:18
PROVIDERS: ADMIT Allergy & Immunology; ATTEND Psychiatry & Neurology Pain Medicine
PROC: HZ42ZZZ Group Counseling for Substance Abuse Treatment, Cognitive-Behavioral (ICD-10-PCS; principal; 2022-04-10)
DX: F11.20 Opioid dependence, uncomplicated (principal); F10.20 Alcohol dependence, uncomplicated; F13.20 Sedative, hypnotic or anxiolytic dependence, uncomplicated; F14.20 Cocaine dependence, uncomplicated; F12.20 Cannabis dependence, uncomplicated; F17.290 Nicotine dependence, other tobacco product, uncomplicated; F19.280 Other psychoactive substance dependence with psychoactive substance-induced anxiety disorder; F19.24 Other psychoactive substance dependence with psychoactive substance-induced mood disorder; F31.9 Bipolar disorder, unspecified; F42.9 Obsessive-compulsive disorder, unspecified; F41.9 Anxiety disorder, unspecified; B18.2 Chronic viral hepatitis C; K21.9 Gastro-esophageal reflux disease without esophagitis; Z62.810 Personal history of physical and sexual abuse in childhood; Z91.013 Allergy to seafood; Z86.79 Personal history of other diseases of the circulatory system; Z87.01 Personal history of pneumonia (recurrent)
CPT/HCPCS: 36415; 80053

== ENCOUNTER 2023-12-16 11:26 | Inpatient (IN) | payer OTHER ==
[2023-12-16 12:06] VITALS: BMI 22.3
[2023-12-16] MEDS ORDERED: POLYETHYLENE GLYCOL (HEALTHYLAX) 3350 17 GM PACKET PO PRN (13:27)
[2023-12-16] MEDS ORDERED: NALOXONE HCL (KLOXXADO) 8 MG SPRAY NS PRN (13:27)
[2023-12-16] MEDS ORDERED: BISMUTH SUBSALICYLATE 524 MG/30 ML PO PRN (13:27)
[2023-12-16] MEDS ORDERED: BENZONATATE 200 MG CAPSULE PO PRN (13:27)
[2023-12-16] MEDS ORDERED: BENZOCAINE/MENTHOL (CHLORASEPTIC ) LOZENGE MM PRN (13:27)
[2023-12-16] MEDS ORDERED: guaiFENesin 600 MG TABLET.ER (FP) PO PRN (13:27)
[2023-12-16] MEDS ORDERED: ACETAMINOPHEN 325 MG TABLET (FP) PO PRN (13:27)
[2023-12-16] MEDS ORDERED: IBUPROFEN 600 MG TABLET (FP) PO PRN (13:27)
[2023-12-16] MEDS ORDERED: DICYCLOMINE HCL 10 MG CAPSULE PO PRN (13:27)
[2023-12-16] MEDS ORDERED: ONDANSETRON *ODT* 4 MG TABLET SL PRN (13:27)
[2023-12-16] MEDS ORDERED: LOPERAMIDE HCL 2 MG CAPSULE PO PRN (13:27)
[2023-12-16] MEDS ORDERED: MAGNESIUM HYDROX 2400MG/30ML ORAL SUSPENSION 30 ML CUP PO PRN (13:27)
[2023-12-16] MEDS ORDERED: IBUPROFEN 400 MG TABLET (FP) PO PRN (13:27)
[2023-12-16] MEDS ORDERED: NALOXONE HCL 0.4 MG/ML VIAL IM PRN (13:27)
[2023-12-16] MEDS ORDERED: NICOTINE POLACRILEX 2 MG LOZENGE BC PRN (13:27)
[2023-12-16] MEDS: LORazepam 1 MG TABLET PO PRN (15:03)
[2023-12-16] MEDS ORDERED: LORazepam 1 MG TABLET ONE (15:03)
[2023-12-16] MEDS: MAG HYDROX/AL HYDROX/SIMETH 30 ML UNIT-DOSE CUP PO PRN (17:24)
[2023-12-16] MEDS: LORazepam 2 MG TABLET PO SCH (17:24)
[2023-12-16] MEDS: hydrOXYzine PAMOATE 25 MG CAPSULE (FP) PO PRN (22:16)
[2023-12-16] MEDS: MELATONIN 5 MG TABLETS PO SCH (22:16)
[2023-12-16] MEDS: THIAMINE HCL 100 MG TABLET (FP) PO SCH (22:16)
[2023-12-17] MEDS: PRENATAL VITAMINS W/ FOLIC ACID TABLET (FP) PO SCH (10:38)
[2023-12-17] MEDS: METHOCARBAMOL 500 MG TABLET PO PRN (10:39)
[2023-12-17 10:49] LABS: HEMATOCRIT 35.8 % (35.4-49); HEMOGLOBIN 12.6 GM/dL (11.7-16.9); MCH 31.4 pg (25.7-33.7); MCHC 35.3 g/dl (32.0-35.9); MEAN CELL VOLUME 88.9 fl (80-96); MEAN PLT VOLUME 7.8 fl (7.5-11.1); PLATELET COUNT 157 10^3/uL (134-434); RBC 4.02 M/mm3 (4.00-5.60); RDW 12.6 % (11.9-15.9); WHITE BLOOD COUNT 3.2 K/mm3 (4.0-10.0)
[2023-12-17 11:09] LABS: CHLORIDE 104 mmol/L (98-107); POTASSIUM 3.7 mmol/L (3.5-5.1); SODIUM 143 mmol/L (136-145)
[2023-12-17 11:11] LABS: ALBUMIN 3.2 g/dl (3.4-5.0); ANION GAP 7 mmol/L (4-13); BLOOD UREA NITROGEN 12.3 mg/dL (7-18); CALCIUM 9.3 mg/dL (8.5-10.1); CO2 31 mmol/L (21-32); GLUCOSE,RANDOM 116 mg/dL (74-106)
[2023-12-17 11:14] LABS: CREATININE 0.8 mg/dL (0.55-1.3); SGOT/AST 28 U/L (15-37); SGPT/ALT 62 U/L (13-61)
[2023-12-17 11:16] LABS: BILIRUBIN,TOTAL 0.5 mg/dL (0.2-1); TOT PROT 6.8 g/dl (6.4-8.2)
[2023-12-17 11:17] LABS: ALK PHOS 53 U/L (45-117)
[2023-12-17] MEDS: BUPRENORPHINE/NALOXONE 2 MG/0.5 MG FILM PACKET SL ONE ×3 (13:43→18:40)
[2023-12-17] MEDS: SUVOREXANT 10 MG TABLET PO PRN (22:04)
[2023-12-18] MEDS: LORazepam 1 MG TABLET PO SCH (05:21)
[2023-12-18] MEDS: BUPRENORPHINE/NALOXONE 4 MG/1 MG FILM PACKET SL SCH (10:05)
[2023-12-19] MEDS ORDERED: LORazepam 0.5 MG TABLET PO PRN
[2023-12-19] MEDS: LORazepam 0.5 MG TABLET PO SCH (04:59)
[2023-12-19] MEDS: BUPRENORPHINE/NALOXONE 4 MG/1 MG FILM PACKET SL SCH (17:23)
[2023-12-20] MEDS: LORazepam 0.5 MG TABLET PO ONE (05:15)
[2023-12-20 09:14] VITALS: BP 128/71; PULSE 64; RESP 18; TEMP 97.4
== END 2023-12-20 08:50 | disposition home or self-care (01) | DRG 773 ==
LOC: YASAS 11:26 → Y6N 14:56
PROVIDERS: ADMIT Allergy & Immunology; ATTEND Allergy & Immunology
PROC: HZ2ZZZZ Detoxification Services for Substance Abuse Treatment (ICD-10-PCS; principal; 2023-12-16)
DX: F10.230 Alcohol dependence with withdrawal, uncomplicated (principal); F11.20 Opioid dependence, uncomplicated; F14.20 Cocaine dependence, uncomplicated; F17.210 Nicotine dependence, cigarettes, uncomplicated; F31.9 Bipolar disorder, unspecified; F19.282 Other psychoactive substance dependence with psychoactive substance-induced sleep disorder; F19.280 Other psychoactive substance dependence with psychoactive substance-induced anxiety disorder; F19.24 Other psychoactive substance dependence with psychoactive substance-induced mood disorder; K21.9 Gastro-esophageal reflux disease without esophagitis; Z62.810 Personal history of physical and sexual abuse in childhood; Z63.8 Other specified problems related to primary support group
CPT/HCPCS: 36415; 80053; 80307; 83036; 85027; 86780; 87635

== ENCOUNTER 2024-01-23 14:28 | Inpatient (IN) | payer OTHER ==
[2024-01-23 14:56] VITALS: BMI 24.3
[2024-01-23] MEDS ORDERED: POLYETHYLENE GLYCOL (HEALTHYLAX) 3350 17 GM PACKET PO PRN (16:05)
[2024-01-23] MEDS ORDERED: guaiFENesin 600 MG TABLET.ER (FP) PO PRN (16:05)
[2024-01-23] MEDS ORDERED: NALOXONE HCL 0.4 MG/ML VIAL IM PRN (16:05)
[2024-01-23] MEDS ORDERED: IBUPROFEN 400 MG TABLET (FP) PO PRN (16:05)
[2024-01-23] MEDS ORDERED: ACETAMINOPHEN 325 MG TABLET (FP) PO PRN (16:05)
[2024-01-23] MEDS ORDERED: BISMUTH SUBSALICYLATE 524 MG/30 ML PO PRN (16:05)
[2024-01-23] MEDS ORDERED: LOPERAMIDE HCL 2 MG CAPSULE PO PRN (16:05)
[2024-01-23] MEDS ORDERED: NALOXONE HCL (KLOXXADO) 8 MG SPRAY NS PRN (16:05)
[2024-01-23] MEDS ORDERED: BENZOCAINE/MENTHOL (CHLORASEPTIC ) LOZENGE MM PRN (16:05)
[2024-01-23] MEDS ORDERED: BENZONATATE 200 MG CAPSULE PO PRN (16:05)
[2024-01-23] MEDS ORDERED: MAGNESIUM HYDROX 2400MG/30ML ORAL SUSPENSION 30 ML CUP PO PRN (16:05)
[2024-01-23] MEDS ORDERED: MAG HYDROX/AL HYDROX/SIMETH 30 ML UNIT-DOSE CUP PO PRN (16:05)
[2024-01-23] MEDS ORDERED: DICYCLOMINE HCL 10 MG CAPSULE PO PRN (16:05)
[2024-01-23] MEDS: PRENATAL VITAMINS W/ FOLIC ACID TABLET (FP) PO SCH (17:01)
[2024-01-23] MEDS: chlordiazePOXIDE HCL 25 MG CAPSULE PO SCH (17:02)
[2024-01-23] MEDS: THIAMINE HCL 100 MG TABLET (FP) PO SCH (22:22)
[2024-01-23] MEDS: MELATONIN 5 MG TABLETS PO SCH (22:22)
[2024-01-23] MEDS: METHOCARBAMOL 500 MG TABLET PO PRN (22:25)
[2024-01-23] MEDS: ONDANSETRON *ODT* 4 MG TABLET SL PRN (22:25)
[2024-01-23] MEDS: hydrOXYzine PAMOATE 25 MG CAPSULE (FP) PO PRN (22:25)
[2024-01-24] MEDS: methaDONE HCL 10 MG TABLET (FOR DETOX USE ONLY) PO ONE (10:30)
[2024-01-24 12:15] LABS: HEMATOCRIT 36.7 % (35.4-49); HEMOGLOBIN 12.6 GM/dL (11.7-16.9); MCH 30.7 pg (25.7-33.7); MCHC 34.3 g/dl (32.0-35.9); MEAN CELL VOLUME 89.5 fl (80-96); MEAN PLT VOLUME 8.2 fl (7.5-11.1); PLATELET COUNT 145 10^3/uL (134-434); RDW 13.4 % (11.9-15.9); WHITE BLOOD COUNT 3.4 K/mm3 (4.0-10.0)
[2024-01-24] MEDS: GABAPENTIN 300 MG CAPSULE PO SCH (13:43)
[2024-01-24] MEDS: chlordiazePOXIDE HCL 25 MG CAPSULE PO PRN (13:43)
[2024-01-24 13:57] LABS: CHLORIDE 105 mmol/L (98-107); SODIUM 141 mmol/L (136-145)
[2024-01-24 14:13] LABS: BLOOD UREA NITROGEN 17.4 mg/dL (7-18)
[2024-01-24 14:14] LABS: CALCIUM 8.9 mg/dL (8.5-10.1)
[2024-01-24 14:16] LABS: ALBUMIN 3.3 g/dl (3.4-5.0); ANION GAP 6 mmol/L (4-13); CO2 30 mmol/L (21-32); GLUCOSE,RANDOM 86 mg/dL (74-106)
[2024-01-24 14:19] LABS: BILIRUBIN,TOTAL 0.6 mg/dL (0.2-1); CREATININE 0.9 mg/dL (0.55-1.3); SGOT/AST 34 U/L (15-37); SGPT/ALT 82 U/L (13-61); TOT PROT 6.8 g/dl (6.4-8.2)
[2024-01-24 14:21] LABS: ALK PHOS 57 U/L (45-117)
[2024-01-24] MEDS: IBUPROFEN 600 MG TABLET (FP) PO PRN (17:31)
[2024-01-24] MEDS: SUVOREXANT 10 MG TABLET PO PRN (22:02)
[2024-01-25] MEDS: chlordiazePOXIDE HCL 25 MG CAPSULE PO SCH (05:23)
[2024-01-26] MEDS ORDERED: chlordiazePOXIDE HCL 10 MG CAPSULE PO PRN
[2024-01-26] MEDS: chlordiazePOXIDE HCL 10 MG CAPSULE PO SCH (05:20)
[2024-01-26] MEDS: methaDONE HCL 10 MG TABLET (FOR DETOX USE ONLY) PO ONE (10:13)
[2024-01-26] MEDS: cloNIDine HCL 0.1 MG TABLET PO PRN (17:29)
[2024-01-27] MEDS: chlordiazePOXIDE HCL 10 MG CAPSULE PO SCH (05:31)
[2024-01-27 18:08] VITALS: BP 124/69; PULSE 73; RESP 16; TEMP 97.7
[2024-01-28] MEDS ORDERED: chlordiazePOXIDE HCL 10 MG CAPSULE PO ONE (05:00)
[2024-01-28] MEDS ORDERED: methaDONE HCL 10 MG TABLET (FOR DETOX USE ONLY) PO ONE (10:00)
== END 2024-01-27 18:11 | disposition left against medical advice (07) | DRG 770 ==
LOC: YASAS 14:28 → Y6N 16:32
PROVIDERS: ADMIT Allergy & Immunology; ATTEND Surgery
PROC: HZ2ZZZZ Detoxification Services for Substance Abuse Treatment (ICD-10-PCS; principal; 2024-01-23)
DX: F11.23 Opioid dependence with withdrawal (principal); F10.230 Alcohol dependence with withdrawal, uncomplicated; F13.20 Sedative, hypnotic or anxiolytic dependence, uncomplicated; F14.20 Cocaine dependence, uncomplicated; F12.20 Cannabis dependence, uncomplicated; F17.210 Nicotine dependence, cigarettes, uncomplicated; F19.282 Other psychoactive substance dependence with psychoactive substance-induced sleep disorder; F41.9 Anxiety disorder, unspecified; F32.A Depression, unspecified; Z62.810 Personal history of physical and sexual abuse in childhood; Z63.8 Other specified problems related to primary support group; Z87.09 Personal history of other diseases of the respiratory system
CPT/HCPCS: 36415; 80053; 80305; 80307; 85027; 86780; 87635; 87811; 93005; 93010; Q0162